=== PATIENT | female | born 1975 | race Hispanic/Latino ===

== ENCOUNTER 2017-06-02 19:28 | Emergency (ER) | payer SELFPAY ==
[2017-06-02 21:40] LABS: Absolute Monocytes 0.8 K/uL (0.1-1.3); Absolute Neutrophil 8.2 K/uL (1.8-8.0); Basophils % 1.1 % (0-1.3); Eosinophils % 1.8 % (0-4.4); Hematocrit 34.5 % (36.0-45.0); Lymphocytes % 29.8 % (15.3-44.8); MCH 26.9 pg (27.0-35.0); MCV 82.7 fL (80-100); MPV 8.4 fL (7.6-11.3); RBC Red Blood Cell Count 4.17 M/uL (3.86-4.86)
[2017-06-02 21:53] LABS: Potassium 3.6 mEq/L (3.6-5.0)
--- NOTE | 2017-06-03 00:23 | EDPHYS ---
Physician Documentation [facility] Name: Shasta Goncalves Age: 42 yrs Sex: Female : 1975 Arrival Date: 06/02/2017 Time: 19:33 Bed 15 Private MD: ED Physician Coby Urena HPI: 06/02 21:24 This 42 yrs old Female presents to ER via Ambulatory with complaints of Leg ma2 Swelling. 21:24 The patient presents with pain, swelling, tenderness. The complaints affect the lateral ma2 aspect of left calf, left lateral ankle and lateral aspect of left foot. Onset: The symptoms/episode began/occurred gradually, 4 week(s) ago. Associated signs and symptoms: Pertinent positives: swelling, warmth, Pertinent negatives calf tenderness, fever, numbness, rash, tingling, vomiting. Severity of symptoms: At their worst the symptoms were moderate. The patient has not experienced similar symptoms in the past. Historical: - Allergies: 19:58 No Known Allergies; la1 - PMHx: 19:58 Diabetes - IDDM; Hypertension; la1 - Immunization history:: Adult Immunizations up to date. - Social history:: Smoking status: Patient/guardian denies using tobacco. - Family history:: not pertinent. ROS: 21:24 Constitutional: Negative for fever, chills, and weight loss, Eyes: Negative for injury, ma2 pain, redness, and discharge, ENT: Negative for injury, pain, and discharge, Neck: Negative for injury, pain, and swelling, Cardiovascular: Negative for chest pain, palpitations, and edema, Respiratory: Negative for shortness of breath, cough, wheezing, and pleuritic chest pain, Abdomen/GI: Negative for abdominal pain, nausea, diarrhea, and constipation, Back: Negative for injury and pain, Skin: Negative for injury, rash, and discoloration, Neuro: Negative for headache, weakness, numbness, tingling, and seizure, Psych: Negative for depression, anxiety, suicide ideation, homicidal ideation, and hallucinations, Allergy/Immunology: Negative for hives, rash, and allergies, Endocrine: Negative for neck swelling, polydipsia, polyuria, polyphagia, and marked weight changes. 21:24 MS/extremity: Positive for erythema, swelling, tenderness, warmth, Negative for acute changes, injury or acute deformity, puncture. Exam: 21:24 Constitutional: This is a well developed, well nourished patient who is awake, alert, ma2 and in no acute distress. Head/Face: Normocephalic, atraumatic. Eyes: Pupils equal round and reactive to light, extra-ocular motions intact. Lids and lashes normal. Conjunctiva and sclera are non-icteric and not injected. Cornea within normal limits. Periorbital areas with no swelling, redness, or edema. Skin: Warm, dry with normal turgor. Normal color with no rashes, no lesions, and no evidence of cellulitis. Neuro: Awake and alert, GCS 15, oriented to person, place, time, and situation. Cranial nerves II-XII grossly intact. Motor strength 5/5 in all extremities. Sensory grossly intact. Cerebellar exam normal. Normal gait. Psych: Awake, alert, with orientation to person, place and time. Behavior, mood, and affect are within normal limits. 21:24 Musculoskeletal/extremity: Extremities: noted in the left leg: erythema, pain, swelling, tenderness, tenderness, 5x5 cm area of erythema with tebnderness on left lateral foot ankle no bony tenderness, ROM: no acute changes, Circulation is intact in all extremities. Sensation intact. Compartment Syndrome exam of affected extremity: is normal. Vital Signs: 19:58 BP 161 / 69; Pulse 93; Resp 19; Temp 97.1; Pulse Ox 100% on R/A; Weight 104.33 kg; la1 Height 5 ft. 6 in. (167.64 cm); 21:40 BP 178 / 87; Pulse 88; Resp 18; Pulse Ox 99% on R/A; tl2 23:22 BP 141 / 83; Pulse 82; Resp 18; Pulse Ox 100% on R/A; tl2 06/03 00:47 BP 130 / 85; Pulse 79; Resp 18; Pulse Ox 100% on R/A; tl2 06/02 19:58 Body Mass Index 37.12 (104.33 kg, 167.64 cm) la1 MDM: 06/02 21:16 Patient medically screened. ma2 21:24 Differential diagnosis: DVT vs cellultitis. ma2 06/03 00:21 Data reviewed: vital signs, nurses notes, radiologic studies. Counseling: I had a ma2 detailed discussion with the patient and/or guardian regarding: the historical points, exam findings, and any diagnostic results supporting the discharge/admit diagnosis, the presence of at least one elevated blood pressure reading (>120/80) during this emergency department visit, the need for outpatient follow up. Medical screen evaluation completed. [facility] emergency medical condition absent. 06/02 21:24 Order name: Basic Metabolic Panel; Complete Time: 22:30 [facility] 06/02 21:24 Order name: CBC with Diff; Complete Time: 22:30 [facility] 06/02 21:24 Order name: US Extremity Venous Uni Ltd [facility] 06/03 00:20 Interpretation: Abnormal. ma2 Administered Medications: No medications were administered Disposition: 06/03/17 00:22 Discharged to Home. Impression: Cellulitis of left lower limb. - Condition is Stable. - Prescriptions for Clindamycin HCl 300 mg Oral Capsule - take 1 capsule by ORAL route every 6 hours for 10 days; 40 capsule. Tylenol- Codeine #3 300-30 mg Oral Tablet - take 2 tablet by ORAL route every 6 hours As needed; 6 tablet. - Medication Reconciliation Form, Thank You Letter, Antibiotic Education, Prescription Opioid Use form. - Follow up: Private Physician; When: Tomorrow; Reason: Continuance of care. - Problem is new. - Symptoms are unchanged. Signatures: Dispatcher [employer] EDMS José Song RN RN la1 Leatha Elliott RN RN tl2 Coby Urena MD MD ma2
--- NOTE | 2017-06-03 00:23 | ER ---
Nurse's Notes [facility] Name: Shasta Goncalves Age: 42 yrs Sex: Female : 1975 Arrival Date: 06/02/2017 Time: 19:33 Bed 15 Private MD: Diagnosis: Cellulitis of left lower limb Presentation: 06/02 19:57 Presenting complaint: Patient states: LLE swelling for the last couple weeks on and la1 off, worse after work. Transition of care: patient was not received from another setting of care. Onset of symptoms was June 02, 2017. Initial Sepsis Screen: Does the patient meet any 2 criteria? No. Patient's initial sepsis screen is negative. Does the patient have a suspected source of infection? No. Patient's initial sepsis screen is negative. Care prior to arrival: None. 19:57 Method Of Arrival: Ambulatory la1 19:57 Acuity: HAYDE 3 la1 Historical: - Allergies: 19:58 No Known Allergies; la1 - PMHx: 19:58 Diabetes - IDDM; Hypertension; la1 - Immunization history:: Adult Immunizations up to date. - Social history:: Smoking status: Patient/guardian denies using tobacco. - Family history:: not pertinent. Screenin:40 Abuse screen: Denies threats or abuse. Nutritional screening: No deficits noted. tl2 Tuberculosis screening: No symptoms or risk factors identified. Fall Risk None identified. Assessment: 21:40 General: Appears in no apparent distress. uncomfortable, Behavior is calm, cooperative, tl2 appropriate for age. Pain: Complains of pain in left leg and left lateral ankle Pain does not radiate. Neuro: Level of Consciousness is awake, alert, obeys commands, Oriented to person, place, time, situation. Cardiovascular: Denies chest pain, Patient's skin is warm and dry. Cardiovascular: Edema is 2+ to left foot and left toes pitting to left foot and left toes. Respiratory: Airway is patent Respiratory effort is even, unlabored, Respiratory pattern is regular, symmetrical. GI: No signs and/or symptoms were reported involving the gastrointestinal system. : No signs and/or symptoms were reported regarding the genitourinary system. Derm: Skin is pink, warm \T\ dry. left leg feels slightly warmer than right leg. Musculoskeletal: Circulation, motion, and sensation intact. Swelling present in left lateral ankle, lateral aspect of left foot, anterior aspect of left ankle and dorsum of left foot Reports. 23:00 Reassessment: Patient appears in no apparent distress at this time. Patient and/or tl2 family updated on plan of care and expected duration. Pain level reassessed. Patient is alert, oriented x 3, equal unlabored respirations, skin warm/dry/pink. 06/03 00:10 Reassessment: Patient appears in no apparent distress at this time. Patient and/or tl2 family updated on plan of care and expected duration. Pain level reassessed. Patient is alert, oriented x 3, equal unlabored respirations, skin warm/dry/pink. Pt verbalized understanding of discharge instructions, need for follow up and prescription usage. 00:47 Reassessment: Patient appears in no apparent distress at this time. Patient and/or tl2 family updated on plan of care and expected duration. Pain level reassessed. Patient is alert, oriented x 3, equal unlabored respirations, skin warm/dry/pink. Vital Signs: 06/02 19:58 BP 161 / 69; Pulse 93; Resp 19; Temp 97.1; Pulse Ox 100% on R/A; Weight 104.33 kg; la1 Height 5 ft. 6 in. (167.64 cm); 21:40 BP 178 / 87; Pulse 88; Resp 18; Pulse Ox 99% on R/A; tl2 23:22 BP 141 / 83; Pulse 82; Resp 18; Pulse Ox 100% on R/A; tl2 06/03 00:47 BP 130 / 85; Pulse 79; Resp 18; Pulse Ox 100% on R/A; tl2 06/02 19:58 Body Mass Index 37.12 (104.33 kg, 167.64 cm) la1 ED Course: 06/02 19:33 Patient arrived in ED. al2 19:58 Triage completed. la1 19:58 Arm band placed on left wrist. la1 21:15 Coby Urena MD is Attending Physician. ma2 21:39 Leatha Elliott RN is Primary Nurse. tl2 21:40 Patient has correct armband on for positive identification. Placed in gown. Bed in low tl2 position. Call light in reach. Side rails up X2. 21:40 Inserted saline lock: 20 gauge in left antecubital area, using aseptic technique. Blood tl2 collected. 22:05 Ultrasound completed. Patient tolerated well. ap2 22:21 US Extremity Venous Uni Ltd In Process Unspecified. EDMS 06/03 00:47 No provider procedures requiring assistance completed. IV discontinued, intact, tl2 bleeding controlled, No redness/swelling at site. Pressure dressing applied. Administered Medications: No medications were administered Outcome: 00:22 Discharge ordered by MD. ma2 00:47 Discharged to home ambulatory. tl2 00:47 Condition: stable 00:47 Discharge instructions given to patient, Instructed on discharge instructions, follow up and referral plans. medication usage, Demonstrated understanding of instructions, follow-up care, medications, Prescriptions given X 2. 00:48 Patient left the ED. tl2 Signatures: Dispatcher [employer] EDNH José Song RN RN Leatha Griffin RN RN tl2 Marilia Mg Mohammad, MD MD ma2 Kiah Contreras Corrections: (The following items were deleted from the chart) 00:47 00:10 Reassessment: Patient appears in no apparent distress at this time. Patient tl2 and/or family updated on plan of care and expected duration. Pain level reassessed. Patient is alert, oriented x 3, equal unlabored respirations, skin warm/dry/pink. tl2
--- NOTE | 2017-06-03 11:51 | RAD REPORT ---
EXAM DESCRIPTION: VAS - Extremity Venous Uni Ltd - 06/02/2017 10:21 pm CLINICAL HISTORY: Leg swelling and edema. COMPARISON: None. FINDINGS: Left lower extremity venous system was interrogated with Doppler technique. Normal flow, c ompressibility and augmentation was noted. There is no DVT present. IMPRESSION: No evidence of left lower extremity deep venous thrombosis.
== END 2017-06-03 00:48 | disposition home or self-care (01) ==
LOC: ER 19:28
DX: L03.116 Cellulitis of left lower limb (principal); I10 Essential (primary) hypertension; E11.9 Type 2 diabetes mellitus without complications
CPT/HCPCS: 36415; 80048; 85025; 93971; 99284

== ENCOUNTER 2019-07-09 11:41 | Emergency (ER) | payer OTHER, SELFPAY ==
[2019-07-09] MEDS ORDERED: NA CHLORIDE 0.9% 1,000 ML ONE (13:17)
[2019-07-09] MEDS ORDERED: METOCLOPRAMIDE 10 MG/2mL INJ ONE (13:34)
[2019-07-09] MEDS ORDERED: DIPHENHYDRAMINE 50 MG/ML VIAL ONE (13:34)
--- OUTSIDE RECORDS SUMMARY | 2019-07-09 13:53 | XMS REPORT ---
:1975 Author Organization [facility] t Address [address] [place] [address] Care Team Providers Name Role Phone Sallie Garcias Attending Clinician [phone] Problems Condition Condition Condition Status Onset Resolution Last Treating Co mments Source Name Details Category Date Date Treatment Clinician Date Charcot Charcot Problem Active [facility] foot due foot due [facility] - to to [facility] diabetes diabetes l mellitus mellitus Out[facility] ent Clinics Diabetes Diabetes Problem Active [facility] mellitus mellitus [facility] - type 2, type 2, [facility] controlled controlled l [facility] ent Clinics Hypertensi Hypertensi Problem Active [facility] Circulatio Circulatio Problem Active [facility] problem n problem [facility] - [facility] Iron Iron Problem Active [facility] deficiency deficiency [facility] - anemia anemia [facility] secondary secondary l to to Outpati inadequate inadequate en t dietary dietary Clinics iron iron intake intake Uncontroll Uncontroll Problem Active [facility] ed type 2 ed type 2 [facility] - diabetes diabetes [facility] a mellitus mellitus l with with Outpati hyperglyce hyperglyce en t [facility] Clinics Allergies, Adverse Reactions, Alerts This patient has no known allergies or adverse reactions. Medications Ordered Filled Start Stop Current Ordering Indication Dosage Frequency Signature Comments Components Source Medication Medication Date Date Medication? Clinician (SIG) Name Name Zestoretic Zestoretic 2017-02 Yes Kelli Schroeder [address] [facility] 0-25 [facility] - 00:00: [facility] 00 [facility] ent Clinics Procedures This patient has no known procedures. Encounters Start End Encounter Admission Attending Care Care Encounter Source Date/Time Date/Time Type Type Clinicians Facility Department ID 2019-03-20 2019-03-20 Telephone Ese [facility] [id number] 00:00:00 00:00:00 Sallie Garcia [facility] [id number] [facility] [id number] MATERNAL [id number] & CHILD [address] [place] [address] 2018-03-08 2018-03-08 Outpatient John Lopezt [id number] [facility] 09:47:00 09:47:00 [facility] 2017-11-29 2017-11-29 Outpatient oJhn Lopezt [id number] [facility] [address] 16:00:00 16:00:00 [facility] 2017-08-30 2017-08-30 Outpatient Brazmei [place] [id number] [address] 14:45:00 14:45:00 [facility] Results This patient has no known results.
[2019-07-09 13:59] LABS: Absolute Lymphocytes (CBC) 2.2 K/uL (0.7-4.9); Basophils % 0.8 % (0-1.3); Hematocrit 41.7 % (36.0-45.0); MPV 9.1 fL (7.6-11.3); RBC Red Blood Cell Count 4.74 M/uL (3.86-4.86)
[2019-07-09 14:06] LABS: Urine Blood 2+ (NEG); Urine Glucose 2+ (NEG); Urine Protein 3+ (NEG); Urine Specific Gravity 1.025 (1.005-1.030)
[2019-07-09] MEDS ORDERED: INSULIN -REGULAR HUMAN 50 UNIT/0.5 ML ML ONE (14:12)
[2019-07-09 14:35] LABS: Albumin 3.2 g/dL (3.4-5.0); Bilirubin Total 0.3 mg/dL (0.2-1.0); Potassium 3.4 mmol/L (3.5-5.1); Protein, Total 8.6 g/dL (6.4-8.2)
[2019-07-09 15:22] LABS: Urine Bacteria 20-50 /HPF (<20); Urine Culture Reflex Order NOT NEEDED; Urine Mucus 2+ /HPF (NONE SEEN)
--- NOTE | 2019-07-09 15:22 | RAD REPORT ---
EXAM DESCRIPTION: CT - Abdomen Pelvis W Contrast - 07/09/2019 2:59 pm CLINICAL HISTORY: back pain, fever, vomiting COMPARISON: Abdomen Pelvis W Contrast dated 07/15/2016 TECHNIQUE: Biphasic, helical CT imaging of the abdomen and pelvis was performed following 100 ml non -ionic IV contrast. No oral contrast. All CT scans are performed using dose optimization technique as appropriate and may include automated exposure control or mA/KV adjustment according to patient size. FINDINGS: No suspicious findings in the lung bases. The liver, spleen, and pancreas show no suspicious findings. Calcifications along the splenic artery could be small aneurysms. This is a stable pattern. Gallbladder and biliary tree are also without mabel picious finding. No hydronephrosis present. There is a 2 centimeter area of diminished enhancement in the lateral mid left kidney. This is an appearance typical for pyelonephritis. No obstructing or nonobstructing calcu li. No right-sided pyelonephritis. No solid mass of either kidney. Air is present in the lumen of the bladder. This is presumed to be from a catheterization rather than gas-forming organism. This needs correlation. No bladder wall thickening, mass or calcification. No adrenal abnormalities. Uterus and ovaries show no suspicious findings. No dilated bowel loops or bowel wall thickening. No appendicitis findings. No active GI process seen. No free air, free fluid or inflammatory stranding. No hernia, mass or bulky lymphadenopathy. No suspicious bony findings. Advanced for age degenerative change in the L5-S1 disc level. IMPRESSION: Mild or early pyelonephritis of the left kidney. No abscess or other complicating factor . Additional nonacute findings detailed in the body of the report.
[2019-07-09] MEDS ORDERED: NA CHLORIDE 0.9% 100 ML IV ONE (16:14)
[2019-07-09] MEDS ORDERED: CEFTRIAXONE 1000 MG/VIAL ONE (16:14)
[2019-07-09] MEDS ORDERED: ACETAMINOPHEN 500 MG TAB ONE (17:30)
[2019-07-09 17:38] VITALS: O2SAT 99
[2019-07-09 17:42] VITALS: BP 168/55; TEMP 97.6
--- NOTE | 2019-07-14 14:31 | EDPHYS ---
Physician Documentation [facility] Name: Shasta Goncalves Age: 44 yrs Sex: Female : 1975 Arrival Date: 07/09/2019 Time: 11:44 Bed 16 Private MD: None, None ED Physician oNel Vieira HPI: 07/08 12:08 This 44 yrs old Female presents to ER via Ambulatory with complaints of jmm Vomiting, Headache. 12:08 The patient presents to the emergency department with nausea. Onset: The jmm symptoms/episode began/occurred gradually, 1 day(s) ago. Possible causes: unknown. The symptoms are aggravated by nothing. The symptoms are alleviated by nothing. Associated signs and symptoms: Pertinent positives: fever, back pain. This is a 44 year old female with a history of htn, dm that presents to the ED with complaints of back pain, fever, vomiting, headache, vomiting. Patient had a similar headache with a previous UTI. Denies abdominal pain. Historical: - Allergies: 14:42 No Known Allergies; vc - PMHx: 14:42 Diabetes - IDDM; Hypertension; vc - Immunization history:: Adult Immunizations up to date. - Social history:: Smoking status: Patient denies any tobacco usage or history of. ROS: 12:08 Cardiovascular: Negative for chest pain, palpitations, and edema, Respiratory: Negative jmm for shortness of breath, cough, wheezing, and pleuritic chest pain. 12:08 Constitutional: Positive for fever. 12:08 Abdomen/GI: Positive for nausea and vomiting. 12:08 Back: Positive for pain at rest. 12:08 Neuro: Positive for headache. 12:08 All other systems are negative. Exam: 12:08 Head/Face: atraumatic. Eyes: EOMI, no conjunctival erythema appreciated ENT: Moist jmm Mucus Membranes Neck: Trachea midline, Supple Chest/axilla: Normal chest wall appearance and motion. Cardiovascular: Regular rate and rhythm. No edema appreciated Respiratory: Normal respirations, no respiratory distress appreciated Abdomen/GI: Non distended, soft Back: Normal ROM Skin: General appearance color normal MS/ Extremity: Moves all extremities, no obvious deformities appreciated, no edema noted to the lower extremities Neuro: Awake and alert, normal gait Psych: Behavior is normal, Mood is normal, Patient is cooperative and pleasant 12:08 Constitutional: The patient appears alert, awake, uncomfortable. Vital Signs: 12:00 BP 171 / 86; Pulse 94; Resp 18; Pulse Ox 99% on R/A; Weight 104.33 kg; Height 5 ft. 5 ll1 in. (165.10 cm); 14:00 BP 155 / 78; Pulse 93; Resp 19; Pulse Ox 99% on R/A; vc 15:00 BP 171 / 93; Pulse 98; Resp 20; Pulse Ox 99% on R/A; vc 16:44 BP 168 / 55; Pulse 94; Resp 16; Temp 97.6(TE); Pulse Ox 99% on R/A; mh5 12:00 Body Mass Index 38.27 (104.33 kg, 165.10 cm) ll1 MDM: 12:59 Patient medically screened. [facility] 16:56 Data reviewed: vital signs, nurses notes. Counseling: I had a detailed discussion with larry the patient and/or guardian regarding: the historical points, exam findings, and any diagnostic results supporting the discharge/admit diagnosis, lab results, radiology results, the need for outpatient follow up, to return to the emergency department if symptoms worsen or persist or if there are any questions or concerns that arise at home. ED course: Patient is alert and non toxic in appearance in the ED. Patient tolerates PO in the ED. patient advised to follow up with pcp and otherwise given strict return precautions. Patient understood and agrees with the plan of care. . 07/08 13:08 Order name: CBC with Diff [facility] 07/08 13:08 Order name: CMP [facility] 07/08 13:53 Order name: Urine Dipstick--Ancillary (enter results) [facility] 07/08 13:53 Order name: Urine --Ancillary (enter results) [facility] 07/08 14:08 Order name: Urine --Ancillary; Complete Time: 14:18 [facility] 07/08 14:08 Order name: Urine Dipstick-Ancillary; Complete Time: 14:18 [facility] 07/08 14:11 Order name: CBC with Automated Diff; Complete Time: 14:18 [facility] 07/08 14:29 Order name: CT Abd/Pelvis - IV Contrast Only [facility] 07/08 14:30 Order name: Urine Microscopic Only [facility] 07/08 14:30 Order name: Urine Culture [facility] 07/08 14:36 Order name: Comprehensive Metabolic Panel; Complete Time: 14:57 [facility] 07/08 15:23 Order name: Urine Microscopic Only; Complete Time: 15:25 [facility] 07/08 13:08 Order name: Saline Lock; Complete Time: 13:51 [facility] 07/08 13:08 Order name: Urine Dipstick-Ancillary (obtain specimen); Complete Time: 13:51 [facility] Administered Medications: 13:52 Drug: NS 0.9% 1000 ml Route: IV; Rate: 1 bolus; Site: left antecubital; ll1 13:52 Drug: Reglan 10 mg Route: IVP; Site: left antecubital; ll1 13:53 Drug: diphenhydrAMINE 12.5 mg Route: IVP; Site: left antecubital; ll1 16:29 Drug: Rocephin - (cefTRIAXone) 2 grams Route: IVPB; Infused Over: 30 mins; Site: left vc antecubital; Disposition: 07/09 09:51 Co-signature as Attending Physician, Noel Vieira MD I agree with the assessment and kdr plan of care. Disposition: 07/09/19 16:57 Discharged to Home. Impression: Pyelonephritis. - Condition is Stable. - Discharge Instructions: Pyelonephritis, Adult. - Prescriptions for Zofran ODT 4 mg Oral tablet,disintegrating - place 1 tablet by TRANSLINGUAL route every 4-6 hours; 20 tablet. Cipro 500 mg Oral Tablet - take 1 tablet by ORAL route every 12 hours for 7 days; 14 tablet. Tramadol 50 mg Oral Tablet - take 1 tablet by ORAL route every 8 hours as needed; 12 tablet. - Medication Reconciliation Form, Thank You Letter, Antibiotic Education, Prescription Opioid Use, Work release form form. - Follow up: Private Physician; When: 2 - 3 days; Reason: Recheck today's complaints, Continuance of care, Re-evaluation by your physician. Signatures: Dispatcher [employer] [facility] Noel Vieira MD MD kdr Mickail, Joel, PA PA jmm Baxter, Heather RN Emilie Martinez RN RN vc Lewis, Lynsay, RN RN ll1 Corrections: (The following items were deleted from the chart) 07/08 14:33 14:32 This 44 yrs old Female presents to ER via Ambulatory with complaints of jmm Vomiting, Headache. gil 17:33 16:57 07/09/2019 16:57 Discharged to Home. Impression: Pyelonephritis. Condition is hb Stable. Forms are Medication Reconciliation Form, Thank You Letter, Antibiotic Education, Prescription Opioid Use. Follow up: Private Physician; When: 2 - 3 days; Reason: Recheck today's complaints, Continuance of care, Re-evaluation by your physician. larry
--- NOTE | 2019-07-14 14:31 | ER ---
Nurse's Notes [facility] Name: Shasta Goncalves Age: 44 yrs Sex: Female : 1975 Arrival Date: 07/09/2019 Time: 11:44 Bed 16 Private MD: None, None Diagnosis: Pyelonephritis Presentation: 07/08 12:00 Chief complaint: Patient states: started with headache on Sunday, started vomitting ll1 yesterday, can't keep anything down today. feels weak. Coronavirus screen: Proceed with normal triage. Patient denies a cough. Patient denies shortness of breath or difficulty breathing. Patient denies measured and/or subjective temperature greater than 100.4F prior to today's visit. Patient reports travel on a cruise ship or to a country the [facility] currently lists as an affected area. Patient denies contact with known and/or suspected case of COVID-19. Ebola Screen: Patient negative for fever greater than or equal to 101.5 degrees Fahrenheit, and additional compatible Ebola Virus Disease symptoms Patient denies exposure to infectious person. Patient denies travel to an Ebola-affected area in the 21 days before illness onset. No symptoms or risks identified at this time. Initial Sepsis Screen: Does the patient meet any 2 criteria? HR > 90 bpm. No. Patient's initial sepsis screen is negative. Does the patient have a suspected source of infection? No. Patient's initial sepsis screen is negative. Risk Assessment: Do you want to hurt yourself or someone else? Patient reports no desire to harm self or others. Onset of symptoms was July 07, 2019. 12:00 Acuity: HAYDE 3 ll1 12:00 Method Of Arrival: Ambulatory ll1 Triage Assessment: 14:05 General: Appears in no apparent distress. uncomfortable, Behavior is calm, cooperative, vc appropriate for age. GI: Reports nausea, vomiting. Historical: - Allergies: 14:42 No Known Allergies; vc - PMHx: 14:42 Diabetes - IDDM; Hypertension; vc - Immunization history:: Adult Immunizations up to date. - Social history:: Smoking status: Patient denies any tobacco usage or history of. Screenin:15 Abuse screen: Denies threats or abuse. Nutritional screening: No deficits noted. vc Tuberculosis screening: No symptoms or risk factors identified. Fall Risk None identified. Assessment: 13:50 General: Appears uncomfortable, Behavior is calm, cooperative, appropriate for age. ll1 Pain: Complains of pain in forehead Quality of pain is described as aching. Neuro: Level of Consciousness is awake, alert, obeys commands, Oriented to person, place, time, situation, Appropriate for age Medical Scheduler are equal bilaterally Moves all extremities. Full function Gait is steady, Speech is normal, Facial symmetry appears normal, Pupils are PERRLA, Reports headache frontal area. Cardiovascular: No deficits noted. Respiratory: No deficits noted. GI: Abdomen is flat, Bowel sounds present X 4 quads. Abd is soft and non tender X 4 quads. Reports nausea, vomiting. 14:35 Reassessment: Patient appears in no apparent distress at this time. Patient and/or vc family updated on plan of care and expected duration. Pain level reassessed. Patient states symptoms have improved. Pain: Complains of pain in forehead, right nondenominational and left nondenominational Pain does not radiate. Pain currently is 3 out of 10 on a pain scale. at worst was 5 out of 10 on a pain scale. Quality of pain is described as dull, pressure. 14:35 General: Appears in no apparent distress. uncomfortable, Behavior is calm, cooperative, vc appropriate for age. Neuro: Level of Consciousness is awake, obeys commands, lethargic, Oriented to person, place, time, situation, Appropriate for age Reports headache frontal area. Cardiovascular: Capillary refill < 3 seconds Patient's skin is warm and dry. Respiratory: Airway is patent Respiratory effort is even, unlabored, Respiratory pattern is regular, symmetrical. : No signs and/or symptoms were reported regarding the genitourinary system. EENT: No signs and/or symptoms were reported regarding the EENT system. Derm: Skin is intact, is healthy with good turgor, Skin temperature is warm. Musculoskeletal: Circulation, motion, and sensation intact. Range of motion: intact in all extremities. 14:40 GI: Abdomen is non-distended. vc Vital Signs: 12:00 BP 171 / 86; Pulse 94; Resp 18; Pulse Ox 99% on R/A; Weight 104.33 kg; Height 5 ft. 5 ll1 in. (165.10 cm); 14:00 BP 155 / 78; Pulse 93; Resp 19; Pulse Ox 99% on R/A; vc 15:00 BP 171 / 93; Pulse 98; Resp 20; Pulse Ox 99% on R/A; vc 16:44 BP 168 / 55; Pulse 94; Resp 16; Temp 97.6(TE); Pulse Ox 99% on R/A; mh5 12:00 Body Mass Index 38.27 (104.33 kg, 165.10 cm) ll1 ED Course: 11:44 Patient arrived in ED. mr 11:44 None, None is Private Physician. mr 12:03 Triage completed. 1 12:08 Parmjit Chow PA is PHCP. [facility] 12:08 Noel Vieira MD is Attending Physician. [facility] 12:22 Kit Mak, RN is Primary Nurse. 1 13:50 Initial lab(s) drawn, by me, sent to lab. Inserted saline lock: 20 gauge in left 5 antecubital area, using aseptic technique. Blood collected. 13:50 Patient has correct armband on for positive identification. Bed in low position. Call [facility] light in reach. Side rails up X 1. Warm blanket given. Pulse ox on. NIBP on. 13:51 CMP Sent. 5 13:51 CBC with Diff Sent. 5 13:55 Report received from Kit Mak RN. vc 17:30 No provider procedures requiring assistance completed. IV discontinued, intact, vc bleeding controlled, No redness/swelling at site. Pressure dressing applied. Administered Medications: 13:52 Drug: NS 0.9% 1000 ml Route: IV; Rate: 1 bolus; Site: left antecubital; 1 13:52 Drug: Reglan 10 mg Route: IVP; Site: left antecubital; 1 13:53 Drug: diphenhydrAMINE 12.5 mg Route: IVP; Site: left antecubital; 1 16:29 Drug: Rocephin - (cefTRIAXone) 2 grams Route: IVPB; Infused Over: 30 mins; Site: left vc antecubital; Outcome: 16:57 Discharge ordered by . [facility] 17:30 Discharged to home ambulatory. vc 17:30 Condition: good 17:30 Discharge instructions given to patient, Instructed on discharge instructions, follow vc up and referral plans. medication usage, Demonstrated understanding of instructions, follow-up care, medications, Prescriptions given X 3. 17:33 Patient left the ED. Addendum: 07/13/2019 07:35 Addendum: Culture Results: Positive urine culture. No further action required. Bacteria e b sensitive to prescribed antibiotic. Signatures: Parmjit Chow PA PA jmm Rivera, Mary mr Baxter, Heather, RN RN Tena Stroud [facility] Crystal Yap Vanessa, RN RN Kit Camp RN RN ll1
== END 2019-07-09 17:33 | disposition home or self-care (01) ==
LOC: ER 11:41
DX: N12 Tubulo-interstitial nephritis, not specified as acute or chronic (principal); I10 Essential (primary) hypertension
CPT/HCPCS: 36415; 74177; 80053; 81003; 81015; 81025; 85025; 87077; 87086; 87088; 87186; 96374; 96375; 99284; J1200; J2765; J7030; Q9967

== ENCOUNTER 2020-06-10 09:21 | Day surgery (SDC) | payer SELFPAY ==
[~2020-06-10 09:21] MED LIST: FENTANYL CITR 100 MCG/2 ML ONE; LIDOCAINE 1% MPF 5 ML VIAL ONE; MIDAZOLAM HCL 2 MG/2 ML INJ ONE; propofoL 200 MG/20 ML VIAL IV ONE
[2020-06-10 09:23] LABS: Absolute Lymphocytes (CBC) 3.2 K/uL (0.7-4.9); Basophils % 0.4 % (0-1.3); Hematocrit 34.9 % (36.0-45.0); Lymphocytes % 22.1 % (15.3-44.8); RBC Red Blood Cell Count 4.01 M/uL (3.86-4.86)
--- NOTE | 2020-06-10 09:35 | RAD REPORT ---
EXAM DESCRIPTION: RAD - Chest Pa And Lat (2 Views) - 06/10/2020 9:22 am CLINICAL HISTORY: preop Chest pain. COMPARISON: CHEST SINGLE VIEW dated 12/11/2009 FINDINGS: The lungs are clear. The heart is normal in size. No displaced fractures. IMPRESSION: No acute or concerning finding suspected.
[2020-06-10 09:36] LABS: Potassium 3.5 mmol/L (3.5-5.1)
[2020-06-10] MEDS ORDERED: CEFAZOLIN/SWI 1gm 1 GM/10 ML SYR ONE (09:43)
[2020-06-10] MEDS ORDERED: NA CHLORIDE 0.9% 1,000 ML ONE (09:43)
[2020-06-10 09:48] VITALS: O2SAT 100
[2020-06-10] MEDS ORDERED: ONDANSETRON 4 MG/2 ML VIAL ONE ×2 (10:08→11:28)
[2020-06-10] MEDS ORDERED: KETOROLAC 30 MG/ML INJ ONE (10:08)
[2020-06-10] MEDS ORDERED: dexAMETHasone 10 MG/ML VIAL ONE (10:08)
--- NOTE | 2020-06-10 10:40 | P.BOP ---
Preoperative diagnosis: tender left shoulder infected subQ mass Postoperative diagnosis: same Primary procedure: Excisional biopsy tender left shoulder infected subQ mass 5.5 x 4 cm Estimated blood loss: <10cc Specimen: mass Findings: as above Anesthesia: General Complications: None Transferred to: Recovery Room Condition: Good
[2020-06-10] MEDS: HYDROMORPHONE HCL 1 MG/ML INJ ONE ×2 (11:00→11:05)
--- NOTE | 2020-06-10 11:13 | DS ---
Diagnosis: Infected left subcutaneous mass. Procedure: Excisional biopsy of left subcutaneous mass. Disposition: Home. Activity: As tolerated. No heavy lifting. Plan: Follow up in my office in 1 week. Call for appointment at [phone]. Keep area dry for 48 boris rs, then may shower. Then, put some triple antibiotics over the region and gauze over the top. The patient will be seen 1 week in my office. JOESPH/LINCOLN Voice ID: [id number] Report ID: [id number]
--- NOTE | 2020-06-10 11:43 | OP ---
Date of Procedure: 06/10/2020 Surgeon: René Sorto MD Preoperative Diagnosis: Tender left shoulder infected subcutaneous mass, 5.5 x 4 cm. Postoperative Diagnosis: Tender left shoulder infected subcutaneous mass, 5.5 x 4 cm. Procedure: Excisional biopsy of tender left shoulder infected subcutaneous mass. Anesthesia: General. Finding: Mass, subcutaneous tissue touch the muscle does not penetrate the muscle. Complications: None. Indication: This is the case of a 45-year-old patient, who comes to us with a tender erythematous ma ss, increasing in size and discomfort. The patient wanted that excised. Benefits, alternatives, and risks of excision were fully explained, which include, but not limited to infection, bleeding, damag e to adjacent structures, anesthesia complication, recurrence, MS, and even . She also understa nds this may not relieve any symptoms. She might need more than one surgical intervention. She expr essed her desire to see we can close this by primary intention, although she understands that we migh t leave it open to close by secondary intention or if we see that she is not improving clinically, re move some of the stitches and let it close by secondary intention with wet-to-dry normal saline packi ng. She understands all that options. She signed a consent. The area of concern was marked by me a nd the patient in the holding room. Procedure In Detail: The patient was brought to the operating room, placed in supine position. Anes thesia was done without complication. The patient was placed in lateral decubitus position with prop er protection. Shoulder area was prepped and draped in sterile fashion. Local anesthesia was applie d and followed by a wedge incision on the skin and some of the skin looked devitalized. The incision was carried down to subcutaneous tissues. Slowly, we were removing this mass completely in 1 unit a ll the way down to fascia of the muscle, but does not penetrate the muscle. The mass was completely excised. The area was profusely irrigated. Since I did not find pus in that area, the area looked h ealthier. We proceeded to approximate this with 0 chromic, 3-0 chromic, and 3-0 nylon. This was aft er profuse irrigation and hemostasis. The patient tolerated the procedure well. Area covered with s terile dressings. Sponge count and instrument count correct. The patient was sent to recovery in st able condition. /LINCOLN Voice ID: [id number] Report ID: [id number]
[2020-06-10 13:20] VITALS: BP 167/86; TEMP 96.4
== END 2020-06-10 11:53 | disposition home or self-care (01) ==
LOC: OR 09:21
PROVIDERS: ATTEND Surgery
PROC: 0JBF0ZZ Excision of Left Upper Arm Subcutaneous Tissue and Fascia, Open Approach (ICD-10-PCS; principal; 2020-06-10 09:00)
DX: L72.0 Epidermal cyst (principal); Z20.822 Contact with and (suspected) exposure to COVID-19
CPT/HCPCS: 93005; 85025; 80048; 36415; 81025; 82947; 88304; 71046; 11406; U0003; J2704; J2250; J3010; J1100; J1170; J0690; J7030; J2405 ×2; 88305

== ENCOUNTER 2020-12-30 17:35 | Emergency (ER) | payer OTHER, SELFPAY ==
--- OUTSIDE RECORDS SUMMARY | 2020-12-30 17:39 | XMS REPORT | Continuity of Care Document ---
:1975 Author Organization [facility] t Address [address] [place] [address] Care Team Providers Name Role Phone STEPHEN SALGADO Primary Care Physician Unavailable CULLEN GRADY Attending Clinician Unavailable MIGUEL ANGEL BEAR Attending Clinician Unavailable Cullen Grady MD Attending Clinician MICHEL CARBALLO Attending Clinician Unavailable STEPHEN SALGADO Attending Clinician Unavailable RODRIGO EAST Attending Clinician Unavailable Jose Garcias Attending Clinician Payers Payer Name Policy Type Policy Number Effective Date Expiration Date S brianna [facility] [id number] 2020 PLUS 00:00:00 [employer] [employer] [id number] 2020 00:00:00 [employer] [employer] [id number] 2020 CARE 00:00:00 Advance Directives Directive Decision Effective Termination Comments Source Date Date Healthcare Agents on N/A [facility] ersity FileNameRelationshipHealthcare of [place] Agent Medical RelationshipCommunication[facility] [phone] (Mobile) Problems Condition Condition Condition Status Onset Resolution Last Treating Co mments Source Name Details Category Date Date Treatment Clinician Date Class 2 Class 2 Disease Active Univers obesity obesity 1-28 ity of [place] body [place] mass [place] mass index 00 Me dical (BMI) of (BMI) of Branch 38.0 to 38.0 to 38.9 in 38.9 in adult, adult, unspecifie unspecifie d obesity d obesity type, type, unspecifie unspecifie d whether d whether serious serious comorbidit comorbidit y present y present Essential Essential Disease Active Uni vers hypertensi hypertensi 1-28 it y of on on 00:00: [place] [facility] Branch BMI BMI Disease Active 2018-02 Univers 38.0-38.9, 38.0-38.9, 0-08 it y of adult adult 00:00: [place] [facility] Charcot Charcot Problem Active [facility] foot [...] with with Outpati hyperglyce hyperglyce en t javier javier Clinics Allergies, Adverse Reactions, Alerts Allergy Allergy Status Severity Reaction(s) Onset Inactive Treating Comm ents Source Name Type Date Date Clinician NO KNOWN Drug Active Univers ALLERGIE Class ity of [facility] Social History Social Habit Start Date Stop Date Quantity Comments Source History of tobacco Smoker [facility] use [facility] Branch Alcohol intake 2020-11-22 2020-11-22 .14 /d [facility] 00:00:00 00:00:00 [facility] Cigarettes smoked 2020-07-08 2020-07-08 [facility] current (pack per 00:00:00 00:00:00 Medical Branch day) - Reported Tobacco use and 2020-07-08 2020-07-08 Never used [facility] [place] exposure 00:00:00 00:00:00 Medical Branch Sex Ass[birth year] [facility] y of [place] 00:00:00 00:00:00 Medical Branch Smoking Status Start Date Stop Date Source Former smoker 2020-07-08 00:00:00 2020-07-08 00:00:00 [facility] Medical Branch Medications Ordered Filled Start Stop Current Ordering Indication Dosage Frequency Signature Comments Components Source Medication Medication Date Date Medication? Clinician (SIG) Name Name LISINOPRIL- Yes [id number] Take 1 Univers HYDROCHLORO 9-22 tablet by ity of THIAZIDE 00:00: mouth once Manuel as 20-12.5 mg 00 daily Medical per tablet Branch [facility] Yes [id number] USE TO Un han ULTRA2 9-22 TEST BLOOD ity of METER Misc 00:00: SUGAR TWICE Medical DAILY Branch LISINOPRIL- Yes [id number] Take 1 Univers HYDROCHLORO 9-22 tablet by ity of THIAZIDE 00:00: mouth once Manuel as 20-12.5 mg 00 daily Medical per tablet Branch [facility] Yes [id number] USE TO Un han ULTRA2 9-22 TEST BLOOD ity of METER Misc 00:00: [place] TWICE Medical DAILY Branch glyBURIDE 5 Yes [id number] 5mg Take 1 Univers mg tablet 6-10 tablet by ity o f 00:00: mouth [place] ([facility]) Medical times Branch daily with meals. glyBURIDE 5 Yes [id number] 5mg Take 1 Univers mg tablet 6-10 tablet by ity o f 00:00: mouth [place] ([facility]) Medical times Branch daily with meals. metFORMIN Yes 1000mg Take 1 Univ ers 1,000 mg 5-28 tablet by ity of tablet 00:00: mouth [place] ([facility]) Medical times Branch daily with meals. metFORMIN Yes 1000mg Take 1 Univ ers 1,000 mg 5-28 tablet by ity of tablet 00:00: mouth [place] ([facility]) Medical times Branch daily with meals. amLODIPine Yes 10mg Take 10 mg U nivers 10 mg 4-25 by mouth ity of tablet 00:00: daily. Medical Branch amLODIPine 2021-0 Yes 10mg Take 10 mg U nivers 10 mg 4-25 by mouth ity of tablet 00:00: daily. [place] [facility] lovastatin Yes TAKE 1 Unive rs 10 mg 4-10 TABLET BY ity of tablet 00:00: MOUTH ONCE DAILY WITH Medical EVENING Branch MEAL [facility] lovastatin Yes TAKE 1 Unive rs 10 mg 4-10 TABLET BY ity of tablet 00:00: MOUTH ONCE DAILY WITH [facility] EVENING [place] MEAL [facility] insulin Yes inject Univers glargine,hu 28 under the ity of m.rec.anlog 14:56: skin. [place] (TOUJEO 08 [facility] U-300 INSULIN SC) insulin Yes inject Univers glargine,hu 03-11 under the ity of m.rec.anlog 14:56: skin. [place] (TOUJEO 08 [facility] U-300 INSULIN SC) metFORMIN 2018-02 Yes 1000mg Take 1,000 Univers 1,000 mg 0-08 mg by ity of tablet 08:58: mouth 2 [place] 29 (two) Medical times Branch daily with meals. lisinopril- 2018-02 Yes 1{tbl} Take 1 Un han hydrochloro 0-08 tablet by ity of thiazide 08:58: mouth [place] 20-12.5 mg 29 daily. Medical per tablet Branch metFORMIN 2018-02 Yes 1000mg Take 1,000 Univers 1,000 mg 0-08 mg by ity of tablet 08:58: mouth 2 [place] 29 (two) Medical times [place] daily with meals. lisinopril- 2018-02 Yes 1{tbl} Take 1 Un han hydrochloro 0-08 tablet by ity of thiazide 08:58: mouth [place] 20-12.5 mg 29 daily. Medical per tablet Branch Zestoretic Zestoretic 2017-02 Yes Kelli Alexandre [address] [facility] Clinics Procedures This patient has no known procedures. Encounters Start End Encounter Admission Attending Care Care Encounter Source Date/Time Date/Time Type Type Clinicians Facility Department ID 2021-05-23 2021-05-23 Outpatient R SONA [facility] [id number] Univers 10:00:00 10:00:00 CULLEN [id number] ity [facility] [place] [facility] 2021-03-14 2021-03-14 Outpatient R CHEMA, [facility] [id number] Univers 13:00:00 13:00:00 MIGUEL ANGEL [id number] ity of [facility] 2021-03-14 2021-03-14 Outpatient R CHEMA, [facility] [id number] Univers 13:00:00 13:00:00 MIGUEL ANGEL ity [facility] [place] [facility] 2020-12-03 2020-12-03 [facility]phone [facility] [id number] Univers 00:00:00 00:00:00 Cullen SPECIALTY [id number] ity of C[place] [id number] [place] AT [id number] [address] 2020-11-26 2020-11-26 Telephone [facility] [id number] Univers 00:00:00 00:00:00 Cullen SPECIALTY [id number] ity [id number] [place] [id number] [address] 2020-11-22 2020-11-22 [facility] [id number] Univers 13:20:00 13:20:00 CULLEN [id number] ity [facility] [place] [facility] 2020-11-22 2020-11-22 [facility] [id number] Univers 08:30:00 08:30:00 CULLEN ity [facility] [place] [facility] 2020-10-27 2020-10-27 Outpatient R CHEMA [facility] [id number] Univers 15:00:00 15:00:00 MIGUEL ANGEL [id number] ity [facility] [place] [facility] 2020-10-20 2020-10-20 Outpatient R KAIT [facility] [id number] Univers 13:30:00 13:30:00 MICHEL [id number] ity [facility] [place] [facility] 2020-10-20 2020-10-20 [facility] [id number] Univers 13:30:00 13:30:00 FABIOONG ity [facility] [place] [facility] 2020-10-04 2020-10-04 Outpatient R JOSE CGIBSONGISELLE [facility] [id number] Univers 14:10:00 14:10:00 CULLEN [id number] ity [facility] [place] [facility] 2020-10-04 2020-10-04 Outpatient R JOSE CGIBSONGISELLE [facility] [id number] Univers 14:10:00 14:10:00 CULLEN ity [facility] [place] [facility] 2020-09-20 2020-09-20 Outpatient R KASHMIRGISELLE [facility] [id number] Univers 11:20:00 11:20:00 CULLEN [id number] ity [facility] [place] [facility] 2020-09-20 2020-09-20 Outpatient R KASHMIRGISELLE [facility] [id number] Univers 11:20:00 11:20:00 CULLEN ity [facility] [place] [facility] 2020-09-13 2020-09-13 Outpatient R KASHMIRGISELLE [facility] [id number] Univers 11:20:00 11:20:00 CULLEN [id number] ity [facility] [place] [facility] 2020-09-13 2020-09-13 Outpatient R JOSE CGIBSONGISELLE [facility] [id number] Univers 11:20:00 11:20:00 CULLEN ity [facility] [place] [facility] 2020-09-06 2020-09-06 Outpatient R SONA [facility] [id number] Univers 13:30:00 13:30:00 CULLEN [id number] ity [facility] [place] [facility] 2020-09-02 2020-09-02 Outpatient R [facility] [id number] Univers 14:30:00 14:30:00 [id number] ity [facility] [place] [facility] 2020-09-02 2020-09-02 Outpatient R DAMIAN STEPHEN [facility] [id number] Univers 14:30:00 14:30:00 ity [facility] [place] [facility] 2020-08-10 2020-08-10 Outpatient R DAMIAN STEPHEN [facility] [id number] Univers 00:00:00 00:00:00 [id number] ity [facility] [place] [facility] 2020-08-10 2020-08-10 Outpatient R DAMIAN STEPHEN [facility] [id number] Univers 00:00:00 00:00:00 ity of [facility] 2020-08-05 2020-08-05 Outpatient Charmaine SALGADO [facility] [id number] Univers 13:30:00 13:30:00 [id number] ity of [facility] 2020-08-05 2020-08-05 Outpatient Charmaine SALGADO [facility] [id number] Univers 00:00:00 00:00:00 ity of [facility] 2020-07-30 2020-07-30 Outpatient Charmaine SALGADO [facility] [id number] Univers 09:40:00 09:40:00 [id number] ity of [facility] 2020-07-30 2020-07-30 Outpatient Charmaine SALGADO [facility] [id number] Univers 00:00:00 00:00:00 ity of [facility] 2020-07-29 2020-07-29 Outpatient Charmaine SALGADO [facility] [id number] Univers 09:00:00 09:00:00 [id number] ity of [facility] 2020-07-29 2020-07-29 Outpatient Charmaine SALGADO [facility] [id number] Univers 00:00:00 00:00:00 ity of [facility] 2020-07-23 2020-07-23 Outpatient Charmaine SALGADO [facility] [id number] Univers 09:40:00 09:40:00 [id number] ity of [facility] 2020-07-23 2020-07-23 Outpatient Charmaine SALGADO [facility] [id number] Univers 00:00:00 00:00:00 ity of [facility] 2020-07-22 2020-07-22 Outpatient R [facility] [id number] Univers 11:30:00 11:30:00 [id number] ity of [facility] 2020-07-22 2020-07-22 Outpatient Charmaine SALGADO [facility] [id number] Univers 11:30:00 11:30:00 ity of [facility] 2020-07-08 2020-07-08 Outpatient Charmaine [facility] [id number] Univers 09:30:00 09:30:00 [id number] ity [facility] [place] [facility] 2020-07-08 2020-07-08 Outpatient R STEPHEN SALGADO [facility] [id number] Univers 09:30:00 09:30:00 ity [facility] [place] [facility] 2020-07-01 2020-07-01 Outpatient R [facility] [id number] Univers 09:30:00 09:30:00 [id number] ity [facility] [place] [facility] 2020-07-01 2020-07-01 Outpatient R STEPHEN SALGADO [facility] [id number] Univers 09:30:00 09:30:00 ity [facility] [place] [facility] 2020-03-15 2020-03-15 Outpatient [facility] [id number] Univers 13:30:00 13:30:00 [id number] ity [facility] [place] [facility] 2020-03-15 2020-03-15 Outpatient R KITA [facility] [id number] Univers 13:30:00 13:30:00 ROSGINGERA ity o f [facility] 2020-03-11 2020-03-11 Outpatient R [facility] [id number] Univers 13:45:00 13:45:00 [id number] ity [facility] [place] [facility] 2020-03-11 2020-03-11 Outpatient R KITA [facility] [id number] Univers 13:45:00 13:45:00 RODRIGO ity o f [facility] 2020-03-03 2020-03-03 Outpatient R [facility] [id number] Univers 08:30:00 08:30:00 [id number] [facility] [place] 2019-03-20 2019-03-20 Telephone [facility] [id number] 00:00:00 00:00:00 Sallie Garcia BOILER CLEANER [id number] [facility] [id number] MATERNAL [id number] & CHILD [address] [place] [address] 2018-03-08 2018-03-08 [facility] [id number] 09:47:00 09:47:00 t [facility] Medicine Medicine Outpati ent Clinics 2017-11-29 2017-11-29 [facility] [id number] 16:00:00 16:00:00 [facility] 2017-08-30 2017-08-30 Outpatient John Spencer [id number] [facility] [address] 14:45:00 14:45:00 [facility] ent Clinics Results This patient has no known results.
--- NOTE | 2020-12-30 19:04 | RAD REPORT ---
EXAM DESCRIPTION: RAD - Chest Single View - 12/30/2020 6:47 pm CLINICAL HISTORY: Dizziness and weakness COMPARISON: Chest Pa And Lat (2 Views) dated 06/10/2020; CHEST SINGLE VIEW dated 12/11/2009 FINDINGS: Lines: None. Lungs: No evidence of edema or pneumonia. Pleural: No significant pleural effusions or pneumothorax. Cardiac: The heart size is within normal limits. Bones: No acute fractures. Other: IMPRESSION: No acute cardiopulmonary disease.
[2020-12-30 19:11] LABS: Absolute Lymphocytes (CBC) 2.6 K/uL (0.7-4.9); Basophils % 0.4 % (0-1.3); Hematocrit 34.6 % (36.0-45.0); Lymphocytes % 19.4 % (15.3-44.8); MPV 8.3 fL (7.6-11.3); RBC Red Blood Cell Count 4.13 M/uL (3.86-4.86)
[2020-12-30 19:12] LABS: Protime INR 0.93
[2020-12-30 19:24] LABS: ALT/SGPT 22 U/L (12-78); AST/SGOT 13 U/L (15-37); Albumin 2.9 g/dL (3.4-5.0); Alkaline Phosphatase 114 U/L (45-117); BUN Blood Urea Nitrogen 18 mg/dL (7-18); Bicarbonate 27 mmol/L (21-32); Bilirubin Direct < 0.1 mg/dL (0-0.2); Bilirubin Total 0.2 mg/dL (0.2-1.0); Glucose Level 291 mg/dL (74-106); Magnesium 2.4 mg/dL (1.8-2.4); NT PRO-BNP 372 pg/mL (<125); Potassium 4.1 mmol/L (3.5-5.1); Protein, Total 7.4 g/dL (6.4-8.2); Sodium Level 137 mmol/L (136-145); Troponin (Emerg Dept Use Only) < 0.02 ng/mL (0.0-0.045)
[2020-12-30] MEDS ORDERED: MECLIZINE HCL 12.5 MG TAB ONE (19:25)
[2020-12-30] MEDS ORDERED: NA CHLORIDE 0.9% 1,000 ML ONE (19:25)
--- NOTE | 2020-12-30 19:26 | RAD REPORT ---
EXAM DESCRIPTION: CT - Head Brain Wo Cont - 12/30/2020 7:12 pm CLINICAL HISTORY: DIZZINESS COMPARISON: No comparisons TECHNIQUE: All CT scans are performed using dose optimization technique as appropriate and may inclu de automated exposure control or mA/KV adjustment according to patient size. FINDINGS: No intracranial hemorrhage, hydrocephalus or extra-axial fluid collection.No areas of brai n edema or evidence of midline shift. The paranasal sinuses and mastoids are clear. The calvarium is intact. IMPRESSION: No acute intracranial abnormality.
[2020-12-30 20:32] LABS: Urine Blood Trace-intact (Negative); Urine Glucose 3+ (Negative); Urine Protein 2+ (Negative); Urine Specific Gravity >=1.030 (1.005-1.030); Urine pH 5.5 (5.0-7.0)
[2020-12-30] MEDS ORDERED: CEFTRIAXONE 1000 MG/VIAL ONE (20:59)
--- NOTE | 2020-12-30 23:03 | ER ---
Nurse's Notes [facility] Name: Shasta Goncalves Age: 45 yrs Sex: Female : 1975 Arrival Date: 12/30/2020 Time: 17:39 Bed 20 Private MD: Diagnosis: Dizziness and giddiness;Type 2 diabetes mellitus with hyperglycemia;Essential (primary) hypertension;UTI/ Urinary tract infection, site not specified Presentation: 12/30 17:48 Chief complaint: Patient states: "I had an episode where I thought I was going to pass ss out. I got shaky and dizzy. It was just a weird feeling. I've been under a lot of stress lately and anxious and I don't know, maybe it all just hit me." Pt also reports that she has not been taking her prescribed medications for the past few months for her HTN, DM and high cholesterol. Coronavirus screen: Client denies travel out of the [place] in the last 14 days. Ebola Screen: Patient denies exposure to infectious person. Patient denies travel to an Ebola-affected area in the 21 days before illness onset. Initial Sepsis Screen: Does the patient meet any 2 criteria? No. Patient's initial sepsis screen is negative. Does the patient have a suspected source of infection? No. Patient's initial sepsis screen is negative. Risk Assessment: Do you want to hurt yourself or someone else? Patient reports no desire to harm self or others. Onset of symptoms was December 30, 2020. 17:48 Method Of Arrival: Ambulatory ss 17:48 Acuity: HAYDE 3 ss 17:50 Note "I also want to talk to the doctor about something else. Depending on which way I ss turn my head, I get these dizzy spells almost as if the room is spinning. It doesn't last long. It's been going on for a few weeks.". Triage Assessment: 18:50 General: Appears in no apparent distress. well groomed, well developed, Behavior is sl2 calm, cooperative, appropriate for age. 18:50 Pain: Denies pain. Neuro: Reports dizziness. Cardiovascular: No deficits noted. sl2 Respiratory: No deficits noted. Reports. GI: No deficits noted. No signs and/or symptoms were reported involving the gastrointestinal system. : No deficits noted. No signs and/or symptoms were reported regarding the genitourinary system. Derm: No deficits noted. No signs and/or symptoms reported regarding the dermatologic system. Musculoskeletal: No deficits noted. No signs and/or symptoms reported regarding the musculoskeletal system. 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 - Social history:: Smoking status: Patient reports the use of cigarette tobacco products, denies chronic smoking, but will smoke occasionally, Patient/guardian denies using street drugs. Screenin:48 Abuse screen: Denies threats or abuse. Nutritional screening: No deficits noted. tw2 Tuberculosis screening: No symptoms or risk factors identified. Fall Risk None identified. Assessment: 20:45 Reassessment: Patient appears in no apparent distress at this time. General: Appears in cc4 no apparent distress. Behavior is calm, cooperative. Pain: Denies pain. Neuro: No deficits noted. Level of Consciousness is awake, alert, obeys commands, Oriented to person, place, time, situation. Cardiovascular: No deficits noted. Capillary refill < 3 seconds Rhythm is sinus rhythm. Respiratory: No deficits noted. Airway is patent Breath sounds are clear bilaterally. GI: No signs and/or symptoms were reported involving the gastrointestinal system. : Reports burning with urination, since 2 days ago. EENT: No signs and/or symptoms were reported regarding the EENT system. Derm: No deficits noted. Skin is intact. Musculoskeletal: No deficits noted. Capillary refill < 3 seconds, Range of motion: intact in all extremities. 20:45 Reassessment: IV NS patent/infusing right AC with no difficulty \\T\\ open rate; bending cc4 right arm intermittently cutting off flow; encouraged ti keep right arm straight to facilitate IV flow with v/u. 23:35 Reassessment: IV NS infusion complete; blood drawn \\T\\ sent to lab for repeat troponin; cc4 voices no complaints. Vital Signs: 17:48 BP 169 / 94; Pulse 87; Resp 14; Temp 97.8(TE); Pulse Ox 100% on R/A; Weight 99.79 kg; ss Height 5 ft. 5 in. (165.10 cm); Pain 0/10; 20:45 BP 155 / 73; Pulse 74; Resp 18; Pulse Ox 100% ; cc4 21:22 BP 143 / 64; Pulse 74; Resp 18; Pulse Ox 100% on R/A; ld1 22:30 BP 160 / 76; Pulse 72; Resp 18; Pulse Ox 100% on R/A; cc4 23:20 BP 107 / 92; Pulse 76; Resp 18; Temp 98.0(O); Pulse Ox 100% on R/A; cc4 17:48 Body Mass Index 36.61 (99.79 kg, 165.10 cm) ED Course: 17:39 Patient arrived in ED. as 17:46 Noel Vieira MD is Attending Physician. kdr 17:48 Arm band placed on right wrist. ss 17:50 Triage completed. ss 17:50 Bed in low position. Call light in reach. tw2 18:45 Inserted saline lock: 20 gauge in right antecubital area, using aseptic technique. tw2 Blood collected. 18:46 XRAY Chest (1 view) In Process Unspecified. EDMS 18:49 Attending Physician role handed off by Noel Vieira MD 7 18:49 Fabrice Sprague MD is Attending Physician. mh7 19:11 CT Head Brain wo Cont In Process Unspecified. EDMS 19:18 [address] Delaney, LESLY is Primary Nurse. sl2 20:48 Urine --Ancillary Sent. cc4 20:48 Urine --Ancillary (enter results) Sent. cc4 20:48 Urine Dipstick-Ancillary Sent. cc4 20:48 Basic Metabolic Panel Sent. cc4 20:48 CBC with Diff Sent. cc4 20:48 LFT's Sent. cc4 20:48 Magnesium Sent. cc4 23:04 Troponin (emerg Dept Use Only) Sent. cc4 23:20 No provider procedures requiring assistance completed. cc4 23:20 IV discontinued, intact, bleeding controlled, No redness/swelling at site. Pressure cc4 dressing applied. Administered Medications: 19:31 Drug: Meclizine 25 mg Route: PO; sl2 23:20 Follow up: Response: No adverse reaction; Other cc4 19:32 Drug: NS 0.9% 1000 ml Route: IV; Rate: 1 bolus; Site: right antecubital; sl2 23:20 Follow up: Response: No adverse reaction; IV Status: Completed infusion; IV Intake: cc4 1000ml 21:03 Drug: Rocephin (cefTRIAXone) 1 grams Route: IV; Rate: per protocol; Site: right ld1 antecubital; 23:20 Follow up: Urine output 350 ml; Response: No adverse reaction cc4 Intake: 23:20 IV: 1000ml; Total: 1000ml. cc4 Output: 23:20 Urine: 350ml; Total: 350ml. cc4 Outcome: 23:03 Discharge ordered by . avery 23:17 Patient left the ED. cc4 23:20 Discharged to home ambulatory. cc4 23:20 Condition: improved 23:20 Discharge instructions given to patient, Instructed on discharge instructions, follow up and referral plans. medication usage, Demonstrated understanding of instructions, follow-up care, medications, Prescriptions given X 2. Addendum: 01/03/2021 08:12 Addendum: Culture Results: Positive urine culture. No further action required. Bacteria i w sensitive to prescribed antibiotic. Signatures: Dispatcher [employer] EDMS Noel Vieira MD MD kdr Martinez, Amelia as Williams, Irene, RN RN iw Christine Sepulveda RN RN ss Ashley Katz RN RN tw2 Fabrice Sprague MD MD 7 Katelyn Thorne RN RN ld1 Katherine Ibarra, LESLY RN cc4 Court Delaney RN RN sl2
--- NOTE | 2020-12-30 23:04 | EDPHYS ---
Physician Documentation [facility] Name: Shasta Goncalves Age: 45 yrs Sex: Female : 1975 Arrival Date: 12/30/2020 Time: 17:39 Bed 20 Private MD: ED Physician Fabrice Sprague HPI: 12/30 18:32 This 45 yrs old Female presents to ER via Ambulatory with complaints of Near kdr Syncope. 18:32 The patient has experienced near-syncope, almost passed out, felt dizzy, felt generally kdr weak, felt like heart was pounding. Onset: The symptoms/episode began/occurred suddenly, just prior to arrival, this morning. Duration: This was a single episode, Lasted for an hour or so. Context: the episode(s) was witnessed, by no one, occurred at home, occurred while the patient was standing, Just prior to the episode the patient experienced dizziness, lightheadedness, weakness. Associated injury: The patient did not suffer any apparent associated injury. Associated signs and symptoms: The patient has no apparent associated signs or symptoms. Current symptoms: Patient states that she feels nervous and somewhat tremulous and dizzy. The patient has not experienced similar symptoms in the past. The patient has not recently seen a physician. Patient states that she has an episode today where she felt like she was going to pass out. She indicated that her lower extremities were wobbly and weak when she was generally shaking and dizzy. She states that she has been under a lot of stress lately and anxious and feels like everything just came up around 1 time. She also has recently has not been taking her medications including her blood pressure medicine and glucose control medications. 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 - Social history:: Smoking status: Patient reports the use of cigarette tobacco products, denies chronic smoking, but will smoke occasionally, Patient/guardian denies using street drugs. ROS: 18:32 Constitutional: Negative for fever, chills, and weight loss, Eyes: Negative for injury, kdr pain, redness, and discharge, Neck: Negative for injury, pain, and swelling, Cardiovascular: Negative for chest pain, palpitations, and edema, Respiratory: Negative for shortness of breath, cough, wheezing, and pleuritic chest pain, Abdomen/GI: Negative for abdominal pain, nausea, vomiting, diarrhea, and constipation, Back: Negative for injury and pain, : Negative for injury, bleeding, discharge, and swelling, MS/Extremity: Negative for injury and deformity, Skin: Negative for injury, rash, and discoloration, Psych: Negative for depression, anxiety, suicide ideation, homicidal ideation, and hallucinations, Allergy/Immunology: Negative for hives, rash, and allergies, Endocrine: Negative for neck swelling, polydipsia, polyuria, polyphagia, and marked weight changes, Hematologic/Lymphatic: Negative for swollen nodes, abnormal bleeding, and unusual bruising. 18:32 Neuro: Positive for dizziness, near syncope, weakness. Exam: 18:32 Constitutional: This is a well developed, well nourished patient who is awake, alert, kdr and in no acute distress. Head/Face: Normocephalic, atraumatic. Eyes: Pupils equal round and reactive to light, extra-ocular motions intact. Lids and lashes normal. Conjunctiva and sclera are non-icteric and not injected. Cornea within normal limits. Periorbital areas with no swelling, redness, or edema. Neck: Trachea midline, no thyromegaly or masses palpated, and no cervical lymphadenopathy. Supple, full range of motion without nuchal rigidity, or vertebral point tenderness. No Meningismus. Chest/axilla: Normal chest wall appearance and motion. Nontender with no deformity. No lesions are appreciated. Cardiovascular: Regular rate and rhythm with a normal S1 and S2. No gallops, murmurs, or rubs. Normal PMI, no JVD. No pulse deficits. Respiratory: Lungs have equal breath sounds bilaterally, clear to auscultation and percussion. No rales, rhonchi or wheezes noted. No increased work of breathing, no retractions or nasal flaring. Abdomen/GI: Soft, non-tender, with normal bowel sounds. No distension or tympany. No guarding or rebound. No evidence of tenderness throughout. Back: No spinal tenderness. No costovertebral tenderness. Full range of motion. Skin: Warm, dry with normal turgor. Normal color with no rashes, no lesions, and no evidence of cellulitis. MS/ Extremity: Pulses equal, no cyanosis. Neurovascular intact. Full, normal range of motion. Neuro: Awake and alert, GCS 15, oriented to person, place, time, and situation. Cranial nerves II-XII grossly intact. Motor strength 5/5 in all extremities. Sensory grossly intact. Cerebellar exam normal. Normal gait. Psych: Awake, alert, with orientation to person, place and time. Behavior, mood, and affect are within normal limits. Vital Signs: 17:48 BP 169 / 94; Pulse 87; Resp 14; Temp 97.8(TE); Pulse Ox 100% on R/A; Weight 99.79 kg; ss Height 5 ft. 5 in. (165.10 cm); Pain 0/10; 20:45 BP 155 / 73; Pulse 74; Resp 18; Pulse Ox 100% ; cc4 21:22 BP 143 / 64; Pulse 74; Resp 18; Pulse Ox 100% on R/A; ld1 22:30 BP 160 / 76; Pulse 72; Resp 18; Pulse Ox 100% on R/A; cc4 23:20 BP 107 / 92; Pulse 76; Resp 18; Temp 98.0(O); Pulse Ox 100% on R/A; cc4 17:48 Body Mass Index 36.61 (99.79 kg, 165.10 cm) ss MDM: 22:59 Differential Diagnosis: cardiac arrhythmia, drug effect, emotional response, idiopathic mh7 syncope. Data reviewed: vital signs, nurses notes, lab test result(s), cardiac enzymes, CBC, electrolytes, urinalysis, EKG, radiologic studies, CT scan, plain films. Data interpreted: Pulse oximetry: on room air is 100 %. Interpretation: normal. Counseling: I had a detailed discussion with the patient and/or guardian regarding: the historical points, exam findings, and any diagnostic results supporting the discharge/admit diagnosis, the presence of at least one elevated blood pressure reading (>120/80) during this emergency department visit, lab results, radiology results, the need for outpatient follow up, to return to the emergency department if symptoms worsen or persist or if there are any questions or concerns that arise at home. Response to treatment: the patient's symptoms have resolved after treatment, the patient's blood pressure is in an acceptable range, mental status has returned to baseline, the patient no longer shows bradycardia, the patient is not short of breath, the patient is not tachycardic, the patient's pain is gone, the patient's temperature has normalized. ED course: Well-appearing, no acute distress, vital signs stable, no focal neurological deficits. No headache, dizziness, nausea, vomiting, weakness or other complaints. Patient states that she started feeling lightheaded while having an argument with her children. She admits to not taking her blood pressure and diabetes medication over the past month. She does have medication at home and refills available. Discussed all test results and findings with the patient. She request to be discharged in ED at this time and will follow up with her doctor.. 23:03 Patient medically screened. mh7 12/30 18:31 Order name: Basic Metabolic Panel [facility] 12/30 18:31 Order name: CBC with Diff [facility] 12/30 18:31 Order name: LFT's [facility] 12/30 18:31 Order name: Magnesium [facility] 12/30 18:31 Order name: NT PRO-BNP; Complete Time: 19:30 [facility] 12/30 18:31 Order name: PT-INR; Complete Time: 19:15 [facility] 12/30 18:31 Order name: Troponin (emerg Dept Use Only); Complete Time: 19:30 [facility] 12/30 18:31 Order name: Basic Metabolic Panel; Complete Time: 19:30 [facility] 12/30 18:31 Order name: CBC with Automated Diff; Complete Time: 19:16 [facility] 12/30 18:31 Order name: Liver (Hepatic) Function; Complete Time: 19:30 [facility] 12/30 18:31 Order name: Magnesium; Complete Time: 19:30 [facility] 12/30 20:32 Order name: Urine Dipstick-Ancillary [facility] 12/30 20:34 Order name: Urine --Ancillary (enter results) [facility] 12/30 20:35 Order name: Urine --Ancillary; Complete Time: 21:14 [facility] 12/30 18:31 Order name: XRAY Chest (1 view); Complete Time: 19:15 [facility] 12/30 18:31 Order name: EKG; Complete Time: 18:31 [facility] 12/30 18:31 Order name: Cardiac monitoring; Complete Time: 20:48 [facility] 12/30 18:31 Order name: EKG - Nurse/Tech; Complete Time: 20:48 [facility] 12/30 18:31 Order name: IV Saline Lock; Complete Time: 18:47 kdr 12/30 18:31 Order name: Labs collected and sent; Complete Time: 18:47 kdr 12/30 18:31 Order name: O2 Per Protocol; Complete Time: 18:47 kdr 12/30 18:31 Order name: O2 Sat Monitoring; Complete Time: 18:47 kdr 12/30 18:31 Order name: CT Head Brain wo Cont; Complete Time: 19:30 kdr 12/30 19:16 Order name: Urine Dipstick-Ancillary (obtain specimen); Complete Time: 20:48 [facility] 12/30 20:40 Order name: Urine Culture [facility] 12/30 21:32 Order name: Troponin (emerg Dept Use Only) [facility] 12/30 21:32 Order name: Troponin (Emerg Dept Use Only); Complete Time: 22:58 [facility] 12/30 19:16 Order name: Urine Test (obtain specimen); Complete Time: 20:48 [facility] Administered Medications: 19:31 Drug: Meclizine 25 mg Route: PO; sl2 23:20 Follow up: Response: No adverse reaction; Other cc4 19:32 Drug: NS 0.9% 1000 ml Route: IV; Rate: 1 bolus; Site: right antecubital; sl2 23:20 Follow up: Response: No adverse reaction; IV Status: Completed infusion; IV Intake: cc4 1000ml 21:03 Drug: Rocephin (cefTRIAXone) 1 grams Route: IV; Rate: per protocol; Site: right ld1 antecubital; 23:20 Follow up: Urine output 350 ml; Response: No adverse reaction cc4 Disposition Summary: 12/30/20 23:03 Discharge Ordered [facility] Symptoms: have improved mh Condition: Stable [facility] Diagnosis - Dizziness and giddiness mh7 - Type 2 diabetes mellitus with hyperglycemia 7 - Essential (primary) hypertension mh7 - UTI/ Urinary tract infection, site not specified [facility] Followup: 7 - With: Private Physician - When: 1 - 2 days - Reason: Worsening of condition, Recheck today's complaints, Continuance of care, Re-evaluation by your physician Discharge Instructions: - Discharge Summary Sheet 7 - Dizziness 7 - Hypertension, Adult, [id number] mh7 - Hyperglycemia, [id number] mh7 - Urinary Tract Infection, Adult, [id number] [facility] Forms: - Medication Reconciliation Form [facility] - Thank You Letter [facility] - Antibiotic Education [facility] - Prescription Opioid Use [facility] Prescriptions: - Cephalexin 500 mg Oral Capsule - take 1 capsule by ORAL route every 12 hours for 7 days; 14 capsule; Refills: 0, [facility] Product Selection Permitted - Pyridium 200 mg Oral Tablet - take 1 tablet by ORAL route every 8 hours for 2 days; 6 tablet; Refills: 0, [facility] Product Selection Permitted Signatures: Dispatcher [employer] EDNY Noel Vieira MD MD [facility] Christine Sepulveda RN RN ss Fabrice Sprague MD MD 7 Katelyn Thorne RN RN ld1 Court Delaney RN RN sl2 Katherine Ibarra RN cc4
[2020-12-31 00:26] VITALS: TEMP 97.8; O2SAT 100
[2020-12-31 00:27] VITALS: BP 143/64
--- NOTE | 2020-12-31 13:18 | EKG ---
Test Date: 2020-12-30 Test Time: 20:44:02 Master Welder: LAUREANO MEASUREMENT RESULTS: Intervals: Rate: 72 MS: 160 QRSD: 74 QT: 404 QTc: 442 Shiner: P: 28 MS: 160 QRS: 10 T: 33 INTERPRETIVE STATEMENTS: Normal sinus rhythm Possible Left atrial enlargement Borderline ECG Compared to ECG 06/10/2020 07:54:30 No significant changes Electronically Signed On 12-31-20 13:16:18 TANK TRUCK ENGINE MECHANIC by William Moore
== END 2020-12-30 23:17 | disposition home or self-care (01) ==
LOC: ER 17:35
DX: E11.65 Type 2 diabetes mellitus with hyperglycemia (principal); I10 Essential (primary) hypertension; N39.0 Urinary tract infection, site not specified; F17.210 Nicotine dependence, cigarettes, uncomplicated
CPT/HCPCS: 96361; 93005; 87088; 85025; 87086; 80048; 36415; 83735; 81025; 85610; 80076; 87077; 87186; 81003; 84484 ×2; 83880; 70450; 71045; 96374; 99284; J7030

== ENCOUNTER 2021-03-23 09:41 | Emergency (ER) | payer OTHER, SELFPAY ==
--- OUTSIDE RECORDS SUMMARY | 2021-03-23 09:43 | XMS REPORT | Continuity of Care Document ---
:1975 Author Organization [facility] t Address [address] [place] [address] Care Team Providers Name Role Phone STEPHEN SALGADO Primary Care Physician Unavailable Kitty Schroeder Attending Clinician Unavailable MIGUEL ANGEL BEAR Attending Clinician Unavailable MARTHA ADAMS Attending Clinician Unavailable DEMETRIO LUTZ Attending Clinician Unavailable [place] STOVALL Attending Clinician Seven Lutz MD Attending Clinician Jose Garcias Attending Clinician Payers Payer Name Policy Type Policy Number Effective Date Expiration Date [facility] [id number] 2020 00:00:00 PLUS Advance Directives Directive Decision Effective Termination Comments Source Date Date Healthcare Agents on N/A Univ ersity FileNameRelationshSelect Medical Special[facility] - [facility]althcare [facility] Agent Medical RelationshipCommunicationBanner [facility] Branch [facility] [phone] (Mobile) Problems Condition Condition Condition Status Onset Resolution Last Treating Co mments Source Name Details Category Date Date Treatment Clinician Date Encounter Encounter Disease Active Uni vers for well for well 03-11 [place]y of [place] exam [place] 00 Medical routine routine Branch gynecologi gynecologi maite exam maite exam Abnormal Abnormal Disease Active Unive rs uterine uterine 03-11 ity of bleeding bleeding 00:00: [place] [address] Medical Branch Class 2 Class 2 Disease Active Univers obesity obesity 03-11 [place] of with body [place] mass index 00 Me dical (BMI) of (BMI) of Branch 38.0 to 38.0 to 38.9 in 38.9 in adult, adult, unspecifie unspecifie d obesity d obesity type, type, unspecifie unspecifie d whether d whether serious serious comorbidit comorbidit y present y present Essential Essential Disease Active Uni vers hypertensi hypertensi - it y of on on 00:: [address] Branch BMI BMI Disease Active 2018-02 Univers 38.0-38.9, 38.0-38.9, 0-08 it y of adult adult 00:00: [address] Charcot Charcot Problem Active [facility] foot [...] NO KNOWN Drug Active Univers ALLERGIE Class it of S [facility] Social History Social Habit Start Date Stop Date Quantity Comments Source Exposure to Not sure [facility] SARS-CoV-2 (event) Medica l Branch History of tobacco Smoker [facility] use [facility] Alcohol intake 2021-03-14 2021-03-14 .14 /d [facility] 00:00:00 00:00:00 Medical Branch Cigarettes smoked 2020-07-08 2020-07-08 [facility] current (pack per 00:00:00 00:00:00 Medical Branch day) - Reported Tobacco use and 2020-07-08 2020-07-08 Never used [facility] exposure 00:00:00 00:00:00 Medical Branch Sex [birth year] [facility] 00:00:00 00:00:00 Medical Branch Smoking Status Start Date Stop Date Source Former smoker 2020-07-08 00:00:00 2020-07-08 00:00:00 [facility] Medical Branch Medications Ordered Filled Start Stop Current Ordering Indication Dosage Frequency Signature Comments Components Source Medication Medication Date Date Medication? Clinician (SIG) Name Name lisinopril- 2021- No 1{tbl} Take 1 U nivers hydrochloro 03-14 tablet by it y of thiazide 14:15: 00:00 mouth [place] 20-12.5 mg 17 :00 daily. Medical per tablet Branch insulin Yes 35U inject 35 Unive rs degludec -31 Units ity of 200 unit/mL 14:13: under the [place] (3 mL) In 43 skin Medical daily. Branch semaglutide Yes 3mg Take 3 mg U nivers 3 mg Tab 03-14 by mouth ity of 14:13: daily. [place] 27 [facility] Branch metFORMIN 2021- No 1000mg Take 1,000 Univers 1,000 mg 03-14 mg by ity of tablet 14:12: 00:00 mouth 2 [place] 59 :00 (two) Medical times Branch daily with meals. insulin 2021- No inject Univers glargine,hu 03-14 under the it y of m.rec.anlog 14:12: 00:00 [place] (TOUJEO 47 :00 Medical SOLOSTAR Branch U-300 INSULIN SC) metFORMIN Yes 1000mg Take 1,000 Univers 1,000 mg 1-28 mg by ity of tablet 10:57: mouth 2 [place] 26 (two) Medical times Branch daily with meals. metFORMIN Yes 1000mg Take 1,000 Univers 1,000 mg 1-28 mg by ity of tablet 10:57: mouth 2 [place] 26 (two) Medical times Branch daily with meals. miSOPROStoL Yes [id number] 200ug Take 1 Univers 200 mcg 1-28 100 tablet by ity of tablet 00:00: mouth [place] [facility] CTIONS. Branch Take one tab the night before and one tab the morning of procedure miSOPROStoL Yes [id number] 200ug Take 1 Univers 200 mcg 1-28 100 tablet by ity of tablet 00:00: mouth [place] [facility] CTIONS. Branch Take one tab the night before and one tab the morning of procedure miSOPROStoL Yes [id number] 200ug Take 1 Univers 200 mcg 1-28 100 tablet by ity of tablet 00:00: mouth [place] [facility] CTIONS. Branch Take one tab the night before and one tab the morning of procedure ONETOUCH Yes Univers ULTRA TEST 1-26 ity of strip 00:00: [place] [address] Medical Branch ONETOUCH Yes Univers DELICA PLUS 1-26 ity of LANCET 33 00:00: [facility] Misc 00 Medical Branch terbinafine Yes Univer s HCL 250 mg 1-05 ity of tablet 00:00: [place] [address] Medical Branch latanoprost Yes INSTILL 1 U nivers 0.005 % 1-03 DROP INTO ity of ophthalmic 00:00: EACH EYE [place] as drops 00 EVERY DAY Medical AT BEDTIME Branch lisinopriL 2020-02 Yes Univers 40 mg 2-29 ity of tablet 00:00: [place] 00 Medical Branch lisinopriL 2020-02 Yes Univers 40 mg 2-29 ity of tablet 00:00: [place] [address] Medical Branch BD STEWART 2ND 2020-02 Yes USE EVERY U nivers GEN PEN 2-29 DAY ity of NEEDLE 32 00:00: DIRECTED [place] gauge x 00 Medical " Ndle Branch lisinopriL 2020-02- No Univer s 40 mg 2-29 -31 ity of tablet 00:00: 00:00 [place] 00 :00 Medical Branch sulfamethox 2020-02 Yes TAKE 1 Univ ers azole-trime 2-19 TABLET BY ity of thoprim 00:00: MOUTH [place] 800-160 mg 00 EVERY 12 Medic al per tablet HOURS FOR Bran ch 7 DAYS sulfamethox 2020-02 Yes TAKE 1 Univ ers azole-trime 2-19 TABLET BY ity of thoprim 00:00: MOUTH [place] 800-160 mg 00 EVERY 12 Medic al per tablet HOURS FOR Bran ch 7 DAYS sulfamethox 2020-02 Yes TAKE 1 Univ ers azole-trime 2-19 TABLET BY ity of thoprim 00:00: MOUTH [place] 800-160 mg 00 EVERY 12 Medic al per tablet HOURS FOR Bran ch 7 DAYS cephALEXin 2020-02- No Univer s 500 mg 03-07 ity of capsule 00:00: 00:00 [place] 00 :00 Medical Branch cephALEXin 2020-02- No Univer s 500 mg 03-07 ity of capsule 00:00: 00:00 [place] 00 :00 Medical Branch LISINOPRIL- Yes [id number] Take 1 Univers HYDROCHLORO 9-22 tablet by ity of THIAZIDE 00:00: mouth once [place] 20-12.5 mg 00 daily Medical per tablet Branch ONETOUCH Yes [id number] USE TO Un han ULTRA2 9-22 TEST BLOOD ity of METER Misc 00:00: SUGAR [place] 00 TWICE Medical DAILY Branch LISINOPRIL- Yes [id number] Take 1 Univers HYDROCHLORO 9-22 tablet by ity of THIAZIDE 00:00: mouth once [place] 20-12.5 mg 00 daily Medical per tablet Branch ONETOUCH Yes [id number] USE TO Un han ULTRA2 9-22 TEST BLOOD ity of METER Misc 00:00: SUGAR [place] 00 TWICE Medical DAILY Branch ONETOUCH Yes [id number] USE TO Un han ULTRA2 9-22 TEST BLOOD ity of METER Misc 00:00: SUGAR [place] 00 TWICE Medical DAILY Branch LISINOPRIL- 2020-0 2021- No [id number] Take 1 Univers HYDROCHLORO 9-22 01-31 tablet by it y of THIAZIDE 00:00: 00:00 mouth [place] 20-12.5 mg 00 :00 daily Medical per tablet Branch glyBURIDE 5 0 Yes [id number] 5mg Take 1 Univers mg tablet 6-10 tablet by ity o f 00:00: mouth 2 [place] 00 (two) Medical times Branch daily with meals. glyBURIDE 5 2020-0 Yes [id number] 5mg Take 1 Univers mg tablet 6-10 tablet by ity o f 00:00: mouth 2 (two) Medical times Branch daily with meals. glyBURIDE 5 2020-0 2022- No [id number] 5mg Take 1 Univers mg tablet 6-10 -31 tablet by ity of 00:00: 00:00 mouth 2 [place] 00 : (two) Medical times Branch daily with meals. metFORMIN 2020-0 Yes 1000mg Take 1 Univ ers 1,000 mg 5-28 tablet by ity of tablet 00:00: mouth 2 [place] (two) Medical times [place] daily with meals. metFORMIN 2020-0 Yes 1000mg Take 1 Univ ers 1,000 mg 5-28 tablet by ity of tablet 00:00: mouth 2 [place] (two) Medical times [place] daily with meals. metFORMIN 2020-0 2- No 1000mg Take 1 Uni vers 1,000 mg 5-28 - tablet by ity o f tablet 00:00: 00:00 mouth 2 00 : (two) Medical times [place] daily with meals. amLODIPine 2020-0 Yes 10mg Take 10 mg U nivers 10 mg 4-25 by mouth ity of tablet 00:00: daily. Medical Branch amLODIPine 2020-0 Yes 10mg Take 10 mg U nivers 10 mg 4-25 by mouth ity of tablet 00:00: daily. Medical Branch amLODIPine 2020-0 2- No 10mg Take 10 mg Univers 10 mg 4-25 - by mouth ity of tablet 00:00: 00:00 daily. [place] 00 :00 Medical Branch lovastatin 2020-0 Yes TAKE 1 Unive rs 10 mg 4-10 TABLET BY ity of tablet 00:00: MOUTH ONCE 00 DAILY WITH Medical EVENING [place] MEAL [facility] lovastatin 2020-0 Yes TAKE 1 Unive rs 10 mg 4-10 TABLET BY ity of tablet 00:00: MOUTH ONCE 00 DAILY WITH Medical EVENING [place] MEAL [facility] lovastatin 2020-0 2022- No TAKE 1 Univ ers 10 mg 4-10 -31 TABLET BY ity of tablet 00:00: 00:00 MOUTH [place]CE [place] 00 :00 DAILY WITH Medical EVENING [place] MEAL [facility] insulin Yes inject Univers glargine,hu 1-28 under the ity of m.rec.anlog 14:56: skin. [place] [facility] [place] [facility] SC) insulin Yes inject Univers glargine,hu 1-28 under the ity of m.rec.anlog 14:56: skin. [place] (TOUJEO 08 [facility] [place] U-300 INSULIN SC) lisinopril- 2018-02 Yes 1{tbl} Take 1 Un han hydrochloro 0-08 tablet by ity of thiazide 08:58: mouth [place] 20-12.5 mg 29 daily. Medical per tablet Branch lisinopril- 2018-02 Yes 1{tbl} Take 1 Un han hydrochloro 0-08 tablet by ity of thiazide 08:58: mouth [place] 20-12.5 mg 29 daily. Medical per tablet Branch Zestoretic Zestoretic 2017-02 Yes [place] [address] [facility] Vital Signs Vital Name Observation Time Observation Value Comments Source Systolic blood 2021-03-14 19:34:00 152 mm[Hg] Univer sity of RUST Diastolic blood 2021-03-14 19:34:00 92 mm[Hg] Unive rsity of [place] Heart rate 2021-03-14 19:31:00 78 /min [facility] Body height 2021-03-14 19:31:00 165.1 cm [facility] Body weight 2021-03-14 19:31:00 104.327 kg [facility] BMI 2021-03-14 19:31:00 38.27 kg/m2 [facility] Oxygen saturation in 2021-03-14 19:31:00 96 /min [facility] Arterial blood by [facility] Pulse oximetry Branch Diastolic blood 2021-03-11 17:10:00 84 mm[Hg] Unive rsity of [place] Systolic blood 2021-03-11 17:10:00 154 mm[Hg] Univer sity of [place] Heart rate 2021-03-11 16:56:00 78 /min [facility] Body temperature 2021-03-11 16:56:00 36.56 [place] [facility] Respiratory rate 2021-03-11 16:56:00 18 /min [facility] Body height 2021-03-11 16:56:00 165.1 cm [facility] Body weight 2021-03-11 16:56:00 104.917 kg [facility] BMI 2021-03-11 16:56:00 38.49 kg/m2 [facility] Procedures This patient has no known procedures. Encounters Start End Encounter Admission Attending Care Care Encounter Source Date/Time Date/Time Type Type Clinicians Facility Department ID 2021-03-21 Outpatient Alexandre STLMLC STLMLC [id number] 10:52:00 Kitty [facility] 2021-08-01 2021-08-01 Outpatient Charmaine BEAR [facility] [id number] Univers 14:30:00 14:30:00 MIGUEL ANGEL [id number] [facility] [place] [facility] 2021-04-18 2021-04-18 Outpatient Charmaine ADAMS [facility] [id number] Univers 10:00:00 10:00:00 MARTHA [id number] [facility] [place] [facility] 2021-04-12 2021-04-12 Outpatient Charmaine ADAMS [facility] [id number] Univers 14:30:00 14:30:00 MARTHA [id number] [facility] [place] [facility] 2021-03-30 2021-03-30 Outpatient DEMETRIO LOPEZ [facility] [id number] Univers 00:00:00 00:00:00 [id number] [facility] [place] [facility] 2021-03-30 2021-03-30 Outpatient DEMETRIO LOPEZ [facility] [id number] Univers 00:00:00 00:00:00 [facility] [place] [facility] 2021-03-14 2021-03-14 Outpatient Charmaine BEAR [facility] [id number] Univers 13:00:00 14:28:20 MIGUEL ANGEL [facility] [place] [facility] 2021-03-14 2021-03-14 Office [place] [facility] [id number] Univers 13:00:00 14:28:20 Visit [facility] [id number] [id number] [place] as SHANTAL?BLEA [id number] Wy ar[place] [address] MEDICAL OFFICE [facility] 2021-03-11 2021-03-11 Office Demetrio Lutz [facility] [id number] Univers 10:30:00 11:30:52 Visit Seven BARNEY [id number] it y of WOM[place]'S [id number] [place] [id number] [address] 2021-03-11 2021-03-11 Outpatient R DEMETRIO LUTZ [facility] [id number] Univers 10:30:00 11:30:52 ity of [facility] 2019-03-20 2019-03-20 [facility] [id number] 00:00:00 00:00:00 Sallie Garcia [employer] [id number] [facility] [id number] MATERNAL [id number] & CHILD [address] [place] [address] 2018-03-08 2018-03-08 Outpatient Brazmei Lopezt [id number] 09:47:00 09:47:00 [facility] Medicine Outpati ent Clinics 2017-11-29 2017-11-29 [facility] [id number] 16:00:00 16:00:00 [facility] Medicine Outpati ent Clinics 2017-08-30 2017-08-30 [facility] [id number] 14:45:00 14:45:00 [facility] Medicine Outpati ent Clinics Results This patient has no known results.
--- NOTE | 2021-03-23 11:45 | RAD REPORT ---
EXAM DESCRIPTION: RAD - Shoulder Left 2 View - 03/23/2021 11:35 am CLINICAL HISTORY: PAIN COMPARISON: No comparisons TECHNIQUE: Internal and external rotation views of the left shoulder were obtained. FINDINGS: There is no fracture or dislocation. No spurring or sclerosis at the AC joint. There is mi nimal degenerative change along the undersurface of the acromion and the acromiohumeral joint space i s narrowed slightly. No abnormal soft tissue calcifications. No degenerative changes seen in the ester ral head. No acute or suspicious findings. IMPRESSION: Minimal degenerative change to the acromion with slight narrowing of the acromial juan c l joint space. Continued, unexplained left shoulder pain can be further addressed with outpatient MR imaging.
--- NOTE | 2021-03-23 11:57 | EDPHYS ---
Physician Documentation [facility] Name: Shasta Goncalves Age: 46 yrs Sex: Female : 1975 Arrival Date: 03/23/2021 Time: 09:41 Bed 14 Private MD: Mechelle Burt C ED Physician Quan Johnson HPI: 03/23 10:04 This 46 yrs old Female presents to ER via Ambulatory with complaints of kb Shoulder Pain. 10:04 The patient or guardian complains of pain, that is acute. left shoulder. Context: kb resulted from lifting or carrying, speaker, The patient reports no decreased range of motion. The patient reports no obvious deformity. Onset: The symptoms/episode began/occurred 2 week(s) ago. Modifying factors: the symptoms are alleviated by nothing. The symptoms are aggravated by movement. Associated signs and symptoms: The patient has no apparent associated signs or symptoms. Severity of symptoms: At their worst the symptoms were moderate, in the emergency department the symptoms are unchanged. Treatment prior to arrival includes: over the counter medications, NSAIDS. The patient has not experienced similar symptoms in the past. The patient has not recently seen a physician. Pt reports pain to posterior left shoulder that started 2 weeks ago after lifting a speaker. States the pain radiates to neck and down arm at times. . 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 - Social history:: Smoking status: Patient denies any tobacco usage or history of. ROS: 10:04 Constitutional: Negative for fever, chills, and weight loss. kb 10:04 MS/extremity: Positive for pain, of the posterior aspect of left shoulder. 10:04 All other systems are negative. Exam: 10:03 Constitutional: This is a well developed, well nourished patient who is awake, alert, kb and in no acute distress. Head/Face: Normocephalic, atraumatic. ENT: Moist Mucous membranes Cardiovascular: Regular rate and rhythm with a normal S1 and S2. No gallops, murmurs, or rubs. No pulse deficits. Respiratory: Respirations even and unlabored. No increased work of breathing. Talking in full sentences Skin: Warm, dry with normal turgor. Normal color. Neuro: Awake and alert, GCS 15, oriented to person, place, time, and situation. Moves all extremities. Normal gait. Psych: Awake, alert, with orientation to person, place and time. Behavior, mood, and affect are within normal limits. 10:03 Musculoskeletal/extremity: Extremities: grossly normal except: noted in the posterior aspect of left shoulder: pain, tenderness, ROM: intact in all extremities, Circulation is intact in all extremities. Sensation intact. Vital Signs: 09:44 BP 166 / 81; Pulse 79; Resp 17; Temp 97.6; Pulse Ox 98% ; Weight 102.06 kg; Height 5 vg1 ft. 5 in. (165.10 cm); Pain 10/10; 11:52 Pulse 72; Pulse Ox 100% on R/A; ap3 09:44 Body Mass Index 37.44 (102.06 kg, 165.10 cm) vg1 MDM: 09:50 Patient medically screened. kb 10:03 Data reviewed: vital signs, nurses notes. Data interpreted: Pulse oximetry: on room air kb is 98 %. Interpretation: normal. 11:55 Counseling: I had a detailed discussion with the patient and/or guardian regarding: the kb historical points, exam findings, and any diagnostic results supporting the discharge/admit diagnosis, radiology results, the need for outpatient follow up, a orthopedic surgeon, to return to the emergency department if symptoms worsen or persist or if there are any questions or concerns that arise at home. 03/23 09:48 Order name: Shoulder Left (2 View) XRAY; Complete Time: 11:55 kb Administered Medications: No medications were administered Disposition: 15:43 Co-signature as Attending Physician, Quan Johnson MD I agree with the assessment and matt plan of care. Disposition Summary: 03/23/21 11:56 Discharge Ordered Location: Home kb Condition: Stable kb Diagnosis - Pain in left shoulder kb Followup: kb - With: Emergency Department - When: As needed - Reason: Worsening of condition Followup: kb - With: Private Physician - When: 2 - 3 days - Reason: Recheck today's complaints, Continuance of care, Re-evaluation by your physician Discharge Instructions: - Discharge Summary Sheet kb - Shoulder Pain, [id number] kb Forms: - Medication Reconciliation Form kb - Thank You Letter kb - Antibiotic Education kb - Prescription Opioid Use kb Prescriptions: - Cyclobenzaprine 10 mg Oral Tablet - take 1 tablet by ORAL route every 8 hours As needed; 21 tablet; Refills: 0, kb Product Selection Permitted - Diclofenac Sodium 75 mg Oral tablet,delayed release (DR/EC) - take 1 tablet by ORAL route 2 times per day As needed; 30 tablet; Refills: 0, kb Product Selection Permitted Signatures: Dispatcher [employer] EDSonia Leonard, MANAGER CRITICAL CARE-C MANAGER CRITICAL CARE-Quan Phillips MD MD cha Garcia, [place] RN RN vg1
--- NOTE | 2021-03-23 11:57 | ER ---
Nurse's Notes [facility] Name: Shasta Goncalves Age: 46 yrs Sex: Female : 1975 Arrival Date: 03/23/2021 Time: 09:41 Bed 14 Private MD: Mechelle Burt C Diagnosis: Pain in left shoulder Presentation: 03/23 09:44 Chief complaint: Patient states: a couple of weeks ago was moving a speaker box and vg1 since then has been having Left shoulder pain. Coronavirus screen: Vaccine status: Patient reports being unvaccinated. Client denies travel out of the [place] in the last 14 days. Ebola Screen: Patient negative for fever greater than or equal to 101.5 degrees Fahrenheit, and additional compatible Ebola Virus Disease symptoms. Initial Sepsis Screen: Does the patient meet any 2 criteria? No. Patient's initial sepsis screen is negative. Does the patient have a suspected source of infection? No. Patient's initial sepsis screen is negative. Risk Assessment: Do you want to hurt yourself or someone else? Patient reports no desire to harm self or others. Onset of symptoms was March 09, 2021. 09:44 Method Of Arrival: Ambulatory vg1 09:44 Acuity: HAYDE 4 vg1 Triage Assessment: 09:47 General: Appears uncomfortable, Behavior is calm, cooperative. Pain: Complains of pain vg1 in Left shoulder Pain currently is 10 out of 10 on a pain scale. Derm:. Musculoskeletal: Circulation, motion, and sensation intact. 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 - Social history:: Smoking status: Patient denies any tobacco usage or history of. Screenin:00 Abuse screen: Denies threats or abuse. Nutritional screening: No deficits noted. ap3 Tuberculosis screening: No symptoms or risk factors identified. Fall Risk None identified. Assessment: 09:58 General: Appears in no apparent distress. Behavior is calm, cooperative, appropriate ap3 for age. Pain: Complains of pain in left side of neck, left shoulder, left arm. Pain: Pain currently is 7 out of 10 on a pain scale. Quality of pain is described as aching, crampy, Pain began gradually, patient states pain began "a couple of weeks ago". Neuro: Level of Consciousness is awake, alert, obeys commands, Oriented to person, place, time, situation, Appropriate for age Shipper Receiver are equal bilaterally Moves all extremities. Gait is steady, Speech is normal, Facial symmetry appears normal. Cardiovascular: Patient's skin is warm and dry. Respiratory: Airway is patent Respiratory effort is even, unlabored, Respiratory pattern is regular, symmetrical. Musculoskeletal: Reports pain in left side of posterior neck, left shoulder, left arm. Vital Signs: 09:44 BP 166 / 81; Pulse 79; Resp 17; Temp 97.6; Pulse Ox 98% ; Weight 102.06 kg; Height 5 vg1 ft. 5 in. (165.10 cm); Pain 10/10; 11:52 Pulse 72; Pulse Ox 100% on R/A; ap3 09:44 Body Mass Index 37.44 (102.06 kg, 165.10 cm) vg1 ED Course: 09:41 Patient arrived in ED. am2 09:42 Mechelle Burt FNP is Private Physician. am2 09:42 Sonia Proctor FNP-C is [facility]. kb 09:42 Quan Johnson MD is Attending Physician. kb 09:47 Triage completed. vg1 09:47 Arm band placed on. vg1 09:58 Ev Del Castillo, RN is Primary Nurse. ap3 10:00 Patient has correct armband on for positive identification. Bed in low position. Call ap3 light in reach. Side rails up X 1. Pulse ox on. NIBP on. Door closed. Noise minimized. 11:34 Shoulder Left (2 View) XRAY In Process Unspecified. EDMS 12:34 No provider procedures requiring assistance completed. Patient did not have IV access ap3 during this emergency room visit. Administered Medications: No medications were administered Outcome: 11:56 Discharge ordered by . kb 12:35 Discharged to home ambulatory. ap3 12:35 Condition: good 12:35 Discharge instructions given to patient, Instructed on discharge instructions, follow up and referral plans. medication usage, Demonstrated understanding of instructions, follow-up care, medications, Prescriptions given X 2. 12:35 Patient left the ED. ap3 Signatures: Dispatcher [employer] EDSonia Leonard, JILLIAN LOPEZ-Ev Pozo Amanda, RN RN ap3 Kenya Cochran RN RN vg1
[2021-03-23 13:15] VITALS: BP 166/81; TEMP 97.6
[2021-03-23 13:16] VITALS: O2SAT 100
== END 2021-03-23 12:35 | disposition home or self-care (01) ==
LOC: ER 09:41
DX: M25.512 Pain in left shoulder (principal); I10 Essential (primary) hypertension; E11.9 Type 2 diabetes mellitus without complications
CPT/HCPCS: 99283

== ENCOUNTER → 2023-02-08 | Emergency (ER) | payer OTHER, SELFPAY ==
[~2023-02-08] MED LIST changes: +ACETAMINOPHEN 325 MG TABLET ONE; -FENTANYL CITR 100 MCG/2 ML ONE; -LIDOCAINE 1% MPF 5 ML VIAL ONE; -MIDAZOLAM HCL 2 MG/2 ML INJ ONE; -propofoL 200 MG/20 ML VIAL IV ONE
--- OUTSIDE RECORDS SUMMARY | 2023-02-08 14:38 | XMS REPORT | Continuity of Care Document ---
Author Name Unknown Address [address] [facility] [address] [place] [address] [facility] thconnect Address [address] [facility] 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 Problem Active [facility] Disorder of cardiovasc ular system Circulatio n problem Problem Active [facility] [id number] Charcot foot due to diabetes mellitus Problem Active [facility] [id number] 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 Ordering Clinician Indication Dosage Frequency Signature (SIG) Comments Components Source Lisinopril 30 MG Lisinopril 30 MG 04-10 00:00: 00 No 1{table t} QD Lisinopril 30 MG Bupivicaine Talcott Bupivicaine Talcott 04-10 00:00: 00 No 5mL [facility] Kenalog (Triamcinol one) Kenalog (Triamcinol one) 04-10 00:00: 00 No 1mL [facility] Bupivicaine Talcott Bupivicaine Talcott 04-19 00:00: 00 No 2.5mg [facility] Kenalog (Triamcinol one) Kenalog (Triamcinol one) 3 00:00: 00 No 40mg [facility] Bupivicaine Talcott Bupivicaine Talcott 04-19 00:00: 00 No 2.5mg [facility] Kenalog (Triamcinol one) Kenalog (Triamcinol one) 3- 00:00: 00 No 40mg [facility] Bupivicaine Talcott Bupivicaine Talcott 0 3-08 00:00: 00 No 2.5mg [facility] Kenalog (Triamcinol one) Kenalog (Triamcinol one) 3- 00:00: 00 No 40mg [facility] Bupivicaine Talcott Bupivicaine Talcott 0 3-08 00:00: 00 No [facility] Kenalog (Triamcinol one) Kenalog (Triamcinol one) 2-0 3-08 00:00: 00 No 40mg [facility] Bupivicaine Talcott Bupivicaine Talcott 2-0 3-08 00:00: 00 No [facility] Kenalog (Triamcinol one) Kenalog (Triamcinol one) 2-0 3-08 00:00: 00 No 40mg [facility] Cyclobenzap rine HCl 10 MG Cyclobenzap rine HCl 10 MG 2022-0 2-21 00:00: 00 No 1{table t} Cyclobenza kelley HCl 10 MG Cyclobenzap rine HCl 10 MG Cyclobenzap rine HCl 10 MG 2022-0 2-21 00:00: 00 No 1{table t} Cyclobenza kellye HCl 10 MG Cyclobenzap rine HCl 10 MG Cyclobenzap rine HCl 10 MG 2022-0 2-21 00:00: 00 No 1{table t} Cyclobenza kelley HCl 10 MG Cyclobenzap rine HCl 10 MG Cyclobenzap rine HCl 10 MG 2022-0 2-21 00:00: 00 No 1{table t} Cyclobenza kelley HCl 10 MG Cyclobenzap rine HCl 10 MG Cyclobenzap rine HCl 10 MG 2022-0 2-21 00:00: 00 No 1{table t} Cyclobenza kelley HCl 10 MG Cyclobenzap rine HCl 10 MG Cyclobenzap rine HCl 10 MG 2-0 2-21 00:00: 00 No 1{table t} Cyclobenza kelley HCl 10 MG Cyclobenzap rine HCl 10 MG Cyclobenzap rine HCl 10 MG 2022-0 2-21 00:00: 00 No 1{table t} Cyclobenza kelley HCl 10 MG Cyclobenzap rine HCl 10 MG Cyclobenzap rine HCl 10 MG 2022-0 2-21 00:00: 00 No 1{table t} Cyclobenza kelley HCl 10 MG Zestoretic Zestoretic 2018-1 0-25 00:00: 00 Yes Kelli Newaygo 1 tablet [facility] Zestoretic 20-25 MG Zestoretic 20-25 MG 2018-1 0-25 00:00: 00 No 1{table t} QD Zestoretic 20-25 MG Zestoretic 20-25 MG Zestoretic 20-25 MG 2018-1 0-25 00:00: 00 No 1{table t} QD Zestoretic 20-25 MG Zestoretic 20-25 MG Zestoretic 20-25 MG 2018-1 0-25 00:00: 00 No 1{table t} QD Zestoretic 20-25 MG Zestoretic 20-25 MG Zestoretic 20-25 MG 2018-1 0-25 00:00: 00 No 1{table t} QD Zestoretic 20-25 MG Zestoretic 20-25 MG Zestoretic 20-25 MG 2018-1 0-25 00:00: 00 No 1{table t} QD Zestoretic 20-25 MG Zestoretic 20-25 MG Zestoretic 20-25 MG 2018-1 0-25 00:00: 00 No 1{table t} QD Zestoretic 20-25 MG Zestoretic 20-25 MG Zestoretic 20-25 MG 2018-1 0-25 00:00: 00 No 1{table t} QD Zestoretic 20-25 MG Zestoretic 20-25 MG Zestoretic 20-25 MG 2018-1 0-25 00:00: 00 No 1{table t} QD Zestoretic 20-25 MG Iron 325 (65 Fe) MG Iron 325 (65 Fe) MG 2017- 0-18 00:00: 00 No 1{table t} BID Iron 325 (65 Fe) MG Iron 325 (65 Fe) MG Iron 325 (65 Fe) MG 2017-1 0-18 00:00: 00 No 1{table t} BID Iron 325 (65 Fe) MG Iron 325 (65 Fe) MG Iron 325 (65 Fe) MG 2017-1 0-18 00:00: 00 No 1{table t} BID Iron 325 (65 Fe) MG Iron 325 (65 Fe) MG Iron 325 (65 Fe) MG 2017-1 0-18 00:00: 00 No 1{table t} BID Iron 325 (65 Fe) MG Iron 325 (65 Fe) MG Iron 325 (65 Fe) MG 2017-1 0-18 00:00: 00 No 1{table t} BID Iron 325 (65 Fe) MG Iron 325 (65 Fe) MG Iron 325 (65 Fe) MG 2017-02 00:00: 00 No 1{table t} BID Iron 325 (65 Fe) MG Iron 325 (65 Fe) MG Iron 325 (65 Fe) MG 2017-02 00:00: 00 No 1{table t} BID Iron 325 (65 Fe) MG Iron 325 (65 Fe) MG Iron 325 (65 Fe) MG 2017-02 00:00: 00 No 1{table t} BID Iron 325 (65 Fe) MG Lisinopril 20 MG Lisinopril 20 MG 08-30 00:00: 00 No 1{table t} QD Lisinopril 20 MG metFORMIN HCl 500 MG metFORMIN HCl 500 MG 08-30 00:00: 00 No 1{table t_with_ a_meal} BID metFORMIN HCl 500 MG Toujeo SoloStar 300 UNIT/ML Toujeo SoloStar 300 UNIT/ML 08-30 00:00: 00 No QD Toujeo SoloStar 300 UNIT/ML Lisinopril 20 MG Lisinopril 20 MG 08-30 00:00: 00 No 1{table t} QD Lisinopril 20 MG metFORMIN HCl 500 MG metFORMIN HCl 500 MG 08-30 00:00: 00 No 1{table t_with_ a_meal} BID metFORMIN HCl 500 MG Toujeo SoloStar 300 UNIT/ML Toujeo SoloStar 300 UNIT/ML 08-30 00:00: 00 No QD Toujeo SoloStar 300 UNIT/ML metFORMIN HCl 500 MG metFORMIN HCl 500 MG 08-30 00:00: 00 No 1{table t_with_ a_meal} BID metFORMIN HCl 500 MG Toujeo SoloStar 300 UNIT/ML Toujeo SoloStar 300 UNIT/ML 08-30 00:00: 00 No QD Toujeo SoloStar 300 UNIT/ML Lisinopril 20 MG Lisinopril 20 MG 08-30 00:00: 00 No 1{table t} QD Lisinopril 20 MG metFORMIN HCl 500 MG metFORMIN HCl 500 MG 08-30 00:00: 00 No 1{table t_with_ a_meal} BID metFORMIN HCl 500 MG Toujeo SoloStar 300 UNIT/ML Toujeo SoloStar 300 UNIT/ML 08-30 00:00: 00 No QD Toujeo SoloStar 300 UNIT/ML Lisinopril 20 MG Lisinopril 20 MG 08-30 00:00: 00 No 1{table t} QD Lisinopril 20 MG metFORMIN HCl 500 MG metFORMIN HCl 500 MG 08-30 00:00: 00 No 1{table t_with_ a_meal} BID metFORMIN HCl 500 MG Toujeo SoloStar 300 UNIT/ML Toujeo SoloStar 300 UNIT/ML 08-30 00:00: 00 No QD Toujeo SoloStar 300 UNIT/ML Lisinopril 20 MG Lisinopril 20 MG 08-30 00:00: 00 No 1{table t} QD Lisinopril 20 MG metFORMIN HCl 500 MG metFORMIN HCl 500 MG 08-30 00:00: 00 No 1{table t_with_ a_meal} BID metFORMIN HCl 500 MG Toujeo SoloStar 300 UNIT/ML Toujeo SoloStar 300 UNIT/ML 08-30 00:00: 00 No QD Toujeo SoloStar 300 UNIT/ML Lisinopril 20 MG Lisinopril 20 MG 08-30 00:00: 00 No 1{table t} QD Lisinopril 20 MG metFORMIN HCl 500 MG metFORMIN HCl 500 MG 08-30 00:00: 00 No 1{table t_with_ a_meal} BID metFORMIN HCl 500 MG Toujeo SoloStar 300 UNIT/ML Toujeo SoloStar 300 UNIT/ML 08-30 00:00: 00 No QD Toujeo SoloStar 300 UNIT/ML Lisinopril 20 MG Lisinopril 20 MG 08-30 00:00: 00 No 1{table t} QD Lisinopril 20 MG metFORMIN HCl 500 MG metFORMIN HCl 500 MG 08-30 00:00: 00 No 1{table t_with_ a_meal} BID metFORMIN HCl 500 MG Toujeo SoloStar 300 UNIT/ML Toujeo SoloStar 300 UNIT/ML 2017-0 08-30 00:00: 00 No QD Toujeo SoloStar 300 UNIT/ML Meloxicam 7.5 MG Meloxicam 7.5 MG No 1{table t} QD Meloxicam 7.5 MG Meloxicam 7.5 MG Meloxicam 7.5 MG No 1{table t} QD Meloxicam 7.5 MG Rybelsus Rybelsus No Rybelsus Terbinafine Terbinafine No Te rbinafin e Meloxicam Meloxicam No Meloxicam Tresiba Tresiba No Tresiba Meloxicam 7.5 MG Meloxicam 7.5 MG No 1{table t} QD Meloxicam 7.5 MG Meloxicam 7.5 MG Meloxicam 7.5 MG No 1{table t} QD Meloxicam 7.5 MG Rybelsus Rybelsus No Rybelsus Terbinafine Terbinafine No Te rbinafin e Meloxicam Meloxicam No Meloxicam Tresiba Tresiba No Tresiba Meloxicam 7.5 MG Meloxicam 7.5 MG No 1{table t} QD Meloxicam 7.5 MG Terbinafine Terbinafine No Te rbinafin e Tresiba Tresiba No Tresiba Meloxicam Meloxicam No Meloxicam Atorvastati n Calcium Atorvastati n Calcium No Atorvastat in Calcium Rybelsus 14 MG Rybelsus 14 MG No QD Rybelsus 14 MG Meloxicam 7.5 MG Meloxicam 7.5 MG No 1{table t} QD Meloxicam 7.5 MG Rybelsus Rybelsus No Rybelsus Meloxicam Meloxicam No Meloxicam Terbinafine Terbinafine No Te rbinafin e Tresiba Tresiba No Tresiba Rybelsus Rybelsus No Rybelsus Meloxicam Meloxicam No Meloxicam Terbinafine Terbinafine No Te rbinafin e Tresiba Tresiba No Tresiba Rybelsus Rybelsus No Rybelsus Meloxicam Meloxicam No Meloxicam Terbinafine Terbinafine No Te rbinafin e Tresiba Tresiba No Tresiba Rybelsus Rybelsus No Rybelsus Terbinafine Terbinafine No Te rbinafin e Meloxicam Meloxicam No Meloxicam Tresiba Tresiba No Tresiba Rybelsus Rybelsus No Rybelsus Meloxicam 7.5 MG Meloxicam 7.5 MG No 1{table t} QD Meloxicam 7.5 MG Terbinafine Terbinafine No Te rbinafin e Meloxicam Meloxicam No Meloxicam Tresiba Tresiba No Tresiba Vital Signs Vital Name Observation Time Observation Value Comments S ource height 2022-04-10 09:30:00 65 [in_i] Commo n [facility] weight 2022-04-10 09:30:00 204 [lb_av] Comm on [facility] temperature 2022-04-10 09:30:00 97.5 [degF] Com mon [facility] bmi 2022-04-10 09:30:00 33.94 kg/m2 Comm on [facility] blood pressure systolic 2022-04-10 09:30:00 134 mm[Hg] [facility] blood pressure diastolic 2022-04-10 09:30:00 80 mm[Hg] [facility] height 2021-05-31 09:00:00 65 [in_i] Commo n [facility] weight 2021-05-31 09:00:00 230 [lb_av] Comm on [facility] bmi 2021-05-31 09:00:00 38.27 kg/m2 Comm on [facility] blood pressure systolic 2021-05-31 09:00:00 147 mm[Hg] [facility] blood pressure diastolic 2021-05-31 09:00:00 87 mm[Hg] [facility] height 2021-04-19 15:30:00 65 [in_i] Commo n [facility] weight 2021-04-19 15:30:00 230 [lb_av] Comm on [facility] temperature 2021-04-19 15:30:00 97.0 [degF] Com mon [facility] bmi 2021-04-19 15:30:00 38.27 kg/m2 Comm on [facility] blood pressure systolic 2021-04-19 15:30:00 146 mm[Hg] [facility] blood pressure diastolic 2021-04-19 15:30:00 92 mm[Hg] [facility] height 2021-04-04 10:00:00 65 [in_i] Commo n [facility] weight 2021-04-04 10:00:00 230 [lb_av] Comm on [facility] temperature 2021-04-04 10:00:00 97.7 [degF] Com mon [facility] bmi 2021-04-04 10:00:00 38.27 kg/m2 Comm on [facility] blood pressure systolic 2021-04-04 10:00:00 164 mm[Hg] [facility] blood pressure diastolic 2021-04-04 10:00:00 94 mm[Hg] [facility] Encounters Start Date/Time End Date/Time Encounter Type Admission Type Attending [facility] Care Facility Care Department Encounter ID Source 2022-04-10 11:43:00 Outpatient AlexandreKitty [facility] [id number] [facility] 2022-03-31 09:21:00 [facility] [id number] [facility] 2021-04-18 16:18:01 [facility] [id number] [facility] 2021-03-31 13:55:00 [facility] [id number] [facility] 2021-03-21 10:52:00 Outpatient Kitty Schroeder [facility] [id number] [facility] 2023-01-10 08:27:10 2023-01-10 08:27:10 Outpatient [facility] [id number] Olivier Negron 2023-01-08 16:21:50 2023-01-08 16:21:50 Outpatient [facility] [id number] Olivier Negron 2022-12-18 08:31:52 2022-12-18 08:31:52 Outpatient [facility] [id number] Olivier Negron 2022-10-13 09:12:36 2022-10-13 09:12:36 Outpatient [facility] SFA [id number] Olivier Negron 2022-10-06 15:08:16 2022-10-06 15:08:16 Outpatient [facility] SFA [id number] Olivier Negron 2022-08-23 16:47:46 2022-08-23 16:47:46 Outpatient [facility] SFA [id number] Olivier Negron 2022-08-14 15:02:42 2022-08-14 15:02:42 Outpatient [facility] S[facility] [id number] Olivier Negron 2022-07-05 07:31:05 2022-07-05 07:31:05 Outpatient [facility] SFA [id number] Olivier Negron 2022-07-04 13:39:04 2022-07-04 13:39:04 Outpatient [facility] SFA [id number] Olivier Negron 2022-04-10 00:00:00 2022-04-10 00:00:00 OFFICE VISIT ESTAB PT LEVEL 4 [facility] ST[facility] [id number] [facility] 2021-06-02 00:00:00 2021-06-02 00:00:00 (TEL) STL[facility]C STL[facility]C [id number] [facility] 2021-05-31 00:00:00 2021-05-31 00:00:00 OFFICE VISIT ESTAB PT LEVEL 4 [facility] ST[facility] [id number] [facility] 2021-04-27 00:00:00 2021-04-27 00:00:00 (TEL) STLMLC STL[facility]C [id number] [facility] 2021-04-19 00:00:00 2021-04-19 00:00:00 OFFICE VISIT ESTAB PT LEVEL 4 [facility] [id number] [facility] 2021-04-14 00:00:00 2021-04-14 00:00:00 (TEL) STLMLC ST[facility] [id number] [facility] 2021-04-06 00:00:00 2021-04-06 00:00:00 (TEL) STLMLC ST[facility] [id number] [facility] 2021-04-04 00:00:00 2021-04-04 00:00:00 OFFICE VISIT NEW PT LEVEL 4 [facility] STL[facility] [id number] [facility] 2019-03-20 00:00:00 2019-03-20 00:00:00 Telephone Sallie Mulligan [facility] 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 WORKER INTERIOR SURFACE [facility] MATERNAL & CHILD HEALTH [facility] [id number] 2018-03-08 09:47:00 2018-03-08 09:47:00 Outpatient [facility] [id number] [facility] 2017-11-29 16:00:00 2017-11-29 16:00:00 Outpatient [facility] [id number] [facility] 2017-08-30 14:45:00 2017-08-30 14:45:00 Outpatient [facility] [id number] [facility] Results Test Description Test Time Test Comments Results Result Co mments Source C Spine Ap/Lat C Spine Ap/Lat
--- NOTE | 2023-02-08 15:28 | RAD REPORT ---
EXAM DESCRIPTION: CT - [id number] - 02/08/2023 3:16 pm CLINICAL HISTORY: Trauma, head and neck injury. TRAUMA COMPARISON: No comparisons TECHNIQUE: Axial 5 mm thick images of the head were obtained. Axial 2 mm thick images of the cervical spine were obtained with sagittal and coronal reconstruction images generated and reviewed. All CT scans are performed using dose optimization technique as appropriate and may include automated exposure control or mA/KV adjustment according to patient size. FINDINGS: CT HEAD WITHOUT CONTRAST: No acute hemorrhage, hydrocephalus or extra-axial collection is identified.No areas of brain edema or midline shift. Circumferential thickening in the maxillary sinuses as well some of the ethmoid air cells.The calvari um is intact. CT CERVICAL SPINE WITHOUT CONTRAST: No fracture or subluxation.No prevertebral soft tissues swelling is identified. Mild cervical spondyl osis. Reversal the normal cervical lordosis may be due related to degenerative changes or spasm. IMPRESSION: No acute intracranial or cervical spine findings.
--- NOTE | 2023-02-08 15:30 | RAD REPORT ---
EXAM DESCRIPTION: CT - Spine Lumbar Wo Con - 02/08/2023 3:17 pm CLINICAL HISTORY: Pain;Lower back pain COMPARISON: No comparisons TECHNIQUE: Axial noncontrast CT imaging of the lumbar spine was performed with coronal and sagittal re-formatted images. All CT scans are performed using dose optimization technique as appropriate and may include automated exposure control or mA/KV adjustment according to patient size. FINDINGS: No acute lumbar spine fracture seen. No aggressive marrow pattern or malalignment. Mild di sc height loss at L4-5 and moderate disc height loss L5-S1. Paraspinal tissues are normal in thickness. No paraspinal abscess or hematoma seen. Intervertebral disc disease assessment is inherently limited by CT. Within these limitations, no high -grade canal stenosis suspected. IMPRESSION: No lumbar spine fracture identified.
--- NOTE | 2023-02-08 15:33 | EDPHYS ---
Physician Documentation [facility] Name: Shasta Mccracken Age: 48 yrs Sex: Female : 1975 Arrival Date: 02/08/2023 Time: 14:33 Bed IW1 Private MD: ED Physician Juan Hayes HPI: 02/08 15:01 This 48 yrs old Female presents to ER via Ambulatory with complaints of Fall sb4 Injury, Back Pain, Dizziness. 15:01 Patient states that she was at [employer] testing an exercise bike when the seat broke and sb4 caused her to fall back onto her head and back. She states that she did not lose consciousness, she is not on blood thinners, she has not been vomiting, she does not feel confused. She does feel dizzy and is complaining of pain in her lower back. COOK NIGHT: 16:05 unknown cm10 Historical: - Allergies: 14:58 No Known Allergies; cm10 - PMHx: 14:58 Diabetes - IDDM; Hypercholesterolemia; Hypertension; cm10 - Immunization history:: Adult Immunizations up to date. - Social history:: Smoking status: Patient denies any tobacco usage or history of. ROS: 15:01 Constitutional: Negative for fever, chills, and weight loss, sb4 15:01 Back: Positive for injury or acute deformity, pain at rest, of the lumbar area, 15:01 Neuro: Positive for dizziness, headache, 15:01 All other systems are negative, Exam: 15:01 Constitutional: This is a well developed, well nourished patient who is awake, alert, sb4 and in no acute distress. Head/Face: Normocephalic, atraumatic. Eyes: Extra-ocular motions intact. Periorbital areas with no swelling, redness, or edema. ENT: Mucous membranes moist. Cardiovascular: Regular rate and rhythm with a normal S1 and S2. Respiratory: Lungs have equal breath sounds bilaterally, clear to auscultation and percussion. No rales, rhonchi or wheezes noted. No increased work of breathing, no retractions or nasal flaring. Abdomen/GI: Soft, non-tender, no distension. Skin: Warm, dry with normal turgor. Normal color with no rashes, no lesions, and no evidence of cellulitis. MS/ Extremity: Pulses equal, no cyanosis. Neurovascular intact. Full, normal range of motion. Neuro: Awake and alert, GCS 15, oriented to person, place, time, and situation. Motor strength 5/5 in all extremities. Sensory grossly intact. Vital Signs: 14:56 BP 194 / 87; Pulse 69; Resp 18; Temp 98.3; Pulse Ox 96% on R/A; Weight 102.06 kg (R); cm10 Height 5 ft. 68 in. ; 16:05 BP 202 / 90; cm10 14:56 Body Mass Index 9.66 (102.06 kg, 325.12 cm) cm10 16:05 Provider made aware. Per provider, ok to discharge patient at this time. cm10 MDM: 14:50 Patient medically screened. sb4 15:01 Differential diagnosis: closed head injury, contusion, laceration, sprain, strain, sb4 concussion. 15:32 Data reviewed: vital signs, nurses notes, radiologic studies, and as a result, I will sb4 discharge patient. Care significantly affected by the following chronic conditions: Diabetes, Hypertension. Counseling: I had a detailed discussion with the patient and/or guardian regarding the historical points, exam findings, and any diagnostic results supporting the discharge/admit diagnosis, the presence of at least one elevated blood pressure reading (>120/80) during this emergency department visit, radiology results, to return to the emergency department if symptoms worsen or persist or if there are any questions or concerns that arise at home. 02/08 15:01 Order name: Head C Spine MPR Wo Con CT; Complete Time: 15:30 sb4 02/08 15:01 Order name: CT Lumbar Spine Wo Con; Complete Time: 15:32 sb4 Administered Medications: 16:05 Not Given (Patient Refused): hydrocodone-acetaminophen(7.5 mg-325 mg) 1 tabs PO once cm10 16:05 Drug: Acetaminophen PO 650 mg PO once Route: PO; cm10 16:05 Follow up: Response: Medication administered at discharge. cm10 Disposition Summary: 02/08/23 15:33 Discharge Ordered Notes: Location: Home sb4 Problem: new sb4 Symptoms: have improved sb4 Condition: Stable sb4 Diagnosis - Concussion without loss of consciousness sb4 Followup: sb4 - With: Emergency Department - When: As needed - Reason: Trouble breathing, Worsening of condition Discharge Instructions: - Discharge Summary Sheet sb4 - Concussion, Adult, [id number] sb4 Forms: - Medication Reconciliation Form sb4 - Thank You Letter sb4 - Antibiotic Education sb4 - Prescription Opioid Use sb4 - Patient Portal Instructions sb4 - Leadership Thank You Letter sb4 Addendum: 02/10/2023 21:11 I was immediately available for consultation during this patient's visit. I did not e c2 personally see the patient or guide the patient's care.. Signatures: Dispatcher [employer] [address] De Leon PA-C PA-C sb4 Batool Sorto, RN RN cm10 Juan Hayes MD MD ec2
--- NOTE | 2023-02-08 15:33 | ER ---
Nurse's Notes [facility] Name: Shasta Mccracken Age: 48 yrs Sex: Female : 1975 Arrival Date: 02/08/2023 Time: 14:33 Bed IW1 Private MD: Diagnosis: Concussion without loss of consciousness Presentation: 02/08 14:56 Chief complaint: Patient states: Was [place] [employer] testing out an exercise bike and the cm10 seat fell off and she fell back and landed on her back and hit her head. Pt denies and LOC, no blood thinners. Pt reports dizziness, head pain and lower back pain. Coronavirus screen: Vaccine status: Patient reports being unvaccinated. Client denies travel out of the [place] in the last 14 days. Ebola Screen: Patient denies travel to an Ebola-affected area in the 21 days before illness onset. No symptoms or risks identified at this time. Initial Sepsis Screen: Does the patient meet any 2 criteria? No. Patient's initial sepsis screen is negative. Does the patient have a suspected source of infection? No. Patient's initial sepsis screen is negative. Risk Assessment: Do you want to hurt yourself or someone else? Patient reports no desire to harm self or others. Onset of symptoms was February 08, 2023. 14:56 Method Of Arrival: Ambulatory cm10 14:56 Acuity: HAYDE 4 cm10 Triage Assessment: 16:06 General: Appears in no apparent distress. comfortable, Behavior is calm, cooperative. cm10 Pain: Complains of pain in lumbar area. Neuro: No deficits noted. Level of Consciousness is awake, alert, obeys commands, Oriented to person, place, time, situation, Reports headache. Cardiovascular: No deficits noted. Patient's skin is warm and dry. Respiratory: No deficits noted. Airway is patent Respiratory effort is even, unlabored, Respiratory pattern is regular, symmetrical. GI: No deficits noted. No signs and/or symptoms were reported involving the gastrointestinal system. : No deficits noted. No signs and/or symptoms were reported regarding the genitourinary system. Derm: No deficits noted. No signs and/or symptoms reported regarding the dermatologic system. Skin is intact, Skin is pink, warm \T\ dry. Musculoskeletal: No deficits noted. Range of motion: intact in all extremities. 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 - Social history:: Smoking status: Patient denies any tobacco usage or history of. Screenin:07 [facility] ED Fall Risk Assessment (Adult) History of falling in the last 3 months, cm10 including since admission Yes- single mechanical fall (1 pt) Confusion or Disorientation No (0 pts) Intoxicated or Sedated No (0 pts) Impaired Gait No (0 pts) Mobility Assist Device Used No (0 pt) Altered Elimination No (0 pt) Score/Fall Risk Level 0 - 2 = Low Risk Oriented to surroundings, Maintained a safe environment, Hourly rounding (assess needs \T\ fall precautionary measures) done. Abuse screen: Denies threats or abuse. Denies injuries from another. Nutritional screening: No deficits noted. Tuberculosis screening: No symptoms or risk factors identified. Vital Signs: 14:56 BP 194 / 87; Pulse 69; Resp 18; Temp 98.3; Pulse Ox 96% on R/A; Weight 102.06 kg (R); cm10 Height 5 ft. 68 in. ; 16:05 BP 202 / 90; cm10 14:56 Body Mass Index 9.66 (102.06 kg, 325.12 cm) cm10 16:05 Provider made aware. Per provider, ok to discharge patient at this time. cm10 ED Course: 14:37 Patient arrived in ED. mg5 14:44 [address] Landon PA-C is PHCP. sb4 14:44 Juan Hayes MD is Attending Physician. sb4 14:58 Triage completed. cm10 14:58 Arm band placed on Patient placed in waiting room. cm10 15:17 Head C Spine MPR Wo Con CT In Process Unspecified. EDMS 15:17 CT Lumbar Spine Wo Con In Process Unspecified. EDMS 16:07 Patient has correct armband on for positive identification. Provided Education on: ER cm10 process and procedures.. 16:07 No provider procedures requiring assistance completed. Patient did not have IV access cm10 during this emergency room visit. Administered Medications: 16:05 Not Given (Patient Refused): hydrocodone-acetaminophen(7.5 mg-325 mg) 1 tabs PO once cm10 16:05 Drug: Acetaminophen PO 650 mg PO once Route: PO; cm10 16:05 Follow up: Response: Medication administered at discharge. cm10 Medication: 16:07 VIS not applicable for this client. cm10 Outcome: 15:33 Discharge ordered by . [email or web address] 16:08 Discharged to home ambulatory, cm10 16:08 Condition: good 16:08 Discharge instructions given to patient, Instructed on discharge instructions, follow up and referral plans. Demonstrated understanding of instructions, follow-up care, 16:08 Patient left the ED. cm10 Signatures: Dispatcher [employer] EDCourt Castellanos PA-C PA-C sb4 Batool Sorto RN RN cm10 Cristal Licona mg5
[2023-02-08 17:06] VITALS: TEMP 98.3; O2SAT 96
[2023-02-08 17:12] VITALS: BP 202/90
== END ==
LOC: ER 14:33
DX: S06.0X0A Concussion without loss of consciousness, initial encounter (principal)
CPT/HCPCS: 70450; 72125; 72131; 99283

== ENCOUNTER 2023-11-27 10:53 | Emergency (ER) | payer OTHER ==
--- OUTSIDE RECORDS SUMMARY | 2023-11-27 10:58 | XMS REPORT | Continuity of Care Document ---
Author Name Unknown Address [address] [facility] [address] [place] [address] [facility] thconnect Address [address] [facility] [address] [place] [address] Care Team Providers Care Expense Analyst Name Role Phone JUSTIN LANGSTON Primary Care Physician Unav BLANCA Alas Attending Clinician Unavailable Kitty Schroeder Attending Clinician Unavailable DEMETRIO LUTZ Attending Clinician Unavailable DEMETRIO LUTZ Attending Clinician Unavailable 2, [facility] Attending Clinician Unavailable Demetrio Lutz MD Attending Clinician BRENDAN GARCIA Attending Clinician UnavailBRENDAN Funes Attending Clinician Blanca Watson MD Attending Clinician [phone] Charly Magallanes MD Attending Clinician Doctor Unassigned, [place] Attending Clinician U Jeanette Barlow MD Attending Clinician AMITA NATHAN Attending Clinician UnavailAmita Lee Attending Clinician MICHEL CARBALLO Attending Clinician Unavailable CHARLY MAGALLANES Attending Clinician UnavailSTEPHEN Lopez Attending Clinician Unavailable Michel Carballo MD Attending Clinician Miguel Angel Bear MD Attending Clinician Unavaila MIGUEL ANGEL Fitzgerald Attending Clinician Unavailable 2, [facility] Attending Clinician Unavailable JEANETTE LEDESMA Attending Clinician Unavailable STEPHEN SALGADO Attending Clinician Unavailable RODRIGO EAST Attending Clinician Unavailab Claudette Sepulveda Attending Clinician + CLAUDETTE MULLIGAN Attending Clinician Unavail able BLANCA WARE Admitting Clinician Unavailable DEMETRIO LUTZ Admitting Clinician Unavailable Blanca Ware MD Admitting Clinician BRENDAN GARCIA Admitting Clinician UnavailDEMETRIO Hawk Admitting Clinician Unavailable Payers Payer Name Policy Type Policy Number Effective Date Expirati on Date Source [facility] DUAL COMP HMO D SNP [id number] 2022 00:00:00 [place] [id number] 2022 00:00:00 [facility] PLUS [id number] 2020 00:00:00 2022 00:00:00 [place] [facility] [id number] 2020 00:00:00 [facility] [id number] 2020 00:00:00 [facility] [place] [facility] [id number] 2018 00:00:00 2019 00:00:00 Problems Condition Name Condition Details Condition Category Status Onset Date Resolution Date Last Treatment Date Treating Clinician Comments Source Colon adenomas Colon adenomas Disease Active 07-18 00:00: 00 [facility] Constipati on, unspecifie d constipati on type Constipati on, unspecifie d constipati on type Disease Active 08-31 00:00: 00 [facility] Encounter for well woman exam with routine gynecologi maite exam Encounter for well woman exam with routine gynecologi maite exam Disease Active 03-11 00:00: 00 [facility] Abnormal uterine bleeding Abnormal uterine bleeding Disease Active 03-11 00:00: 00 [facility] Essential hypertensi on Essential hypertensi on Disease Active 03-11 00:00: 00 [facility] Hypertensi on Hypertensi on Problem Active [facility] [id number] Iron deficiency anemia secondary to inadequate dietary iron intake Problem Active [facility] [id number] Uncontroll ed type 2 diabetes mellitus with hyperglyce javier Problem Active [facility] Disorder of cardiovasc ular system Circulatio n problem Problem Active [facility] [id number] Charcot foot due to diabetes mellitus Problem Active [facility] [id number] 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 Problem Active [facility] Encounter for screening colonoscop y Encounter for screening colonoscop y Disease Resolve d 4-18 00:00: 00 2023-07-27 00:00:00 2023-07-27 08:32:33 [facility] Class 2 obesity with body mass index (BMI) of 38.0 to 38.9 in adult, unspecifie d obesity type, unspecifie d whether serious comorbidit y present Class 2 obesity with body mass index (BMI) of 38.0 to 38.9 in adult, unspecifie d obesity type, unspecifie d whether serious comorbidit y present Disease Resolve d 03-11 00:00: 00 2022-07-18 00:00:00 2022-07-18 10:06:00 [facility] BMI 38.0-38.9, adult BMI 38.0-38.9, adult Disease Resolve d 2018-02 008 00:00: 00 2022-07-18 00:00:00 2022-07-18 10:06:00 [facility] Dysuria Dysuria Disease Resolve d 03-11 00:00: 00 2020-07-08 00:00:00 2020-07-08 12:54:49 [facility] Cervical Papanicola ou smear negative within last 12 months Cervical Papanicola ou smear negative within last 12 months Disease Resolve d 2018-02 0-11 00:00: 00 2020-07-08 00:00:00 2020-07-08 12:54:58 [facility] Encounter for contracept luis management , unspecifie d type Encounter for contracept luis management , unspecifie d type Disease Resolve d 2018-02 0-08 00:00: 00 2020-07-08 00:00:00 2020-07-08 12:54:28 [facility] UTI symptoms UTI symptoms Disease Resolve d 5-10 00:00: 00 2020-07-08 00:00:00 2020-07-08 12:54:39 [facility] Allergies, Adverse Reactions, Alerts Allergy Name Allergy Type Status Severity Reaction(s) Onset Date Inactive Date Treating Clinician Comments Source NO KNOWN ALLERGIE S Drug Class Active [facility] Social History Social Habit Start Date Stop Date Quantity Comments Source Sex Assigned At [facility] Gender identity [facility] Sexual orientation [facility] History of tobacco use Cigarette Smoker [facility] Alcoholic beverage intake 2023-09-28 00:00:00 2023-09-28 00:00:00 .14 /d [facility] Tobacco use and exposure 2023-07-27 00:00:00 2023-07-27 00:00:00 Smokeless tobacco non-user [facility] Alcohol intake 2023-05-31 00:00:00 2023-05-31 00:00:00 .14 /d [facility] History of Social function 2022-07-18 00:00:00 2022-07-18 00:00:00 [facility] Exposure to SARS-CoV-2 (event) 2022-07-06 00:00:00 2022-07-16 09:22:00 Not sure [facility] Cigarettes smoked current (pack per day) - Reported 2020-07-08 00:00:00 2020-07-08 00:00:00 [facility] Smoking Status Start Date Stop Date Source Ex-smoker 2023-07-27 00:00:00 2023-07-27 00:00:00 [facility] Medications Ordered Medication Name Filled Medication Name Start Date Stop Date Current Medication? Ordering Clinician Indication Dosage Frequency Signature (SIG) Comments Components Source medroxyPROG ESTERone (PROVERA) 10 mg tablet 09-27 00:00: 00 Yes [id number] 100 10mg Take 1 tablet by mouth in the morning. [facility] ibuprofen (IBU) tablet 600 mg 09-18 19:15: 00 09-18 18:26 :00 No [id number] 100 600mg 600 mg, Oral, ONCE, 1 dose, On Sun09/19/23 at 1415, Routine [facility] miSOPROStoL 200 mcg tablet 07-26 00:00: 00 09-18 00:00 :00 No [id number] 100 200ug Take 1 tablet by mouth SEE-INSTRU CTIONS. Take one tab the night before and one tab the morning of procedure [facility] Nitrofurant oin&Nit. Macrocryst (MACROBID) 100 mg capsule 07-26 00:00: 00 08-01 04:59 :00 No [id number] 100mg Take 1 capsule by mouth in the morning and 1 capsule in the evening. Do all this for 5 days. [facility] water for irrigation irrigation solution 06-26 14:08: 06-26 14:49 :36 No PRN, Starting on Sun06/27/23 at 0908, Until Sun06/27/23 at 0949, Routine, Intra-op [facility] simethicone (GAS RELIEF (SIMETHICON E)) 40 mg/0.6 mL drops 06-26 14:08: 00 06-26 14:49 :36 No PRN, Starting on Sun06/27/23 at 0908, Until Sun06/27/23 at 0949, Routine, Intra-op [facility] lactated ringers IV infusion 1,000 mL 06-26 13:30: 00 06-26 13:48 :00 No 1000mL at 42 mL/hr, 1,000 mL, IV Infusion, ONCE, 1 dose, On Sun06/27/23 at 0830, Routine, DSU Pre-op [facility] polyethylen e glycol 3350 (MIRALAX) 17 gram powder 18 00:00: 00 Yes 1{packe t} Take 1 Packet by mouth in the morning. [facility] peg-electro lyte soln 236-22.74-6 .74 -5.86 gram solution 18 00:00: 00 06-02 04:59 :00 No 4000mL Take 4,000 mL by mouth in the morning for 2 days. [facility] MOUNJARO 10 mg/0.5 mL subcutaneou s injection 05-06 00:00: 00 Yes 10mg inject 10 mg under the skin weekly. On Fridays [facility] cetirizine 10 mg tablet 05 00:00: 00 06-26 00:00 :00 No 10mg Take 1 tablet by mouth every morning. [facility] polyethylen e glycol 3350 17 gram/dose powder 09-11 00:00: 00 09-13 04:59 :00 No 238g Take 238 g by mouth in the morning for 1 dose. [facility] polyethylen e glycol 3350 (MIRALAX) 17 gram/dose powder 09-01 00:00: 00 09-04 04:59 :00 No 238g Take 238 g by mouth in the morning for 2 days. [facility] lisinopriL 30 mg tablet 07-18 00:00: 00 Yes 30mg Take 1 tablet by mouth every morning. [facility] rosuvastati n 10 mg tablet 07-18 00:00: 00 Yes 10mg Take 1 tablet by mouth every morning. [facility] triamcinolo ne acetonide 0.1 % cream 07-18 00:00: 00 05-30 00:00 :00 No [id number] Apply to area(s) 2 (two) times daily. [facility] mupirocin 2 % ointment 07-18 00:00: 00 05-30 00:00 :00 No [id number] Apply to area(s) 3 (three) times daily. [facility] Lisinopril 30 MG Lisinopril 30 MG 04-10 00:00: 00 No 1{table t} QD Lisinopril 30 MG Bupivicaine [place] Bupivicaine [place] 04-10 00:00: 00 No 5mL [facility] Kenalog (Triamcinol one) Kenalog (Triamcinol one) 04-10 00:00: 00 No 1mL [facility] insulin degludec 200 unit/mL (3 mL) InPn 2021-02 10:30: 57 01-31 00:00 :00 No 35U inject 35 Units under the skin daily. [facility] semaglutide (RYBELSUS) 14 mg Tab 2021-02 00:00: 00 06-26 00:00 :00 No [id number] 14mg Take 14 mg by mouth daily. [facility] fluconazole 150 mg tablet 2021-02 00:00: 00 05-30 00:00 :00 No [id number] 150mg Take 1 tablet by mouth every 10 (ten) days. [facility] rosuvastati n 20 mg tablet 2021-02 00:00: 00 10-04 00:00 :00 No [id number] 20mg Take 1 tablet by mouth at bedtime. [facility] lisinopriL 40 mg tablet 2021-02 00:00: 00 10-04 00:00 :00 No [id number] 40mg Take 1 tablet by mouth in the morning. [facility] traZODone 100 mg tablet 2022-1 2-13 00:00: 00 08-31 00:00 :00 No TAKE 1/2 TO 1 TABLET BY MOUTH AT BEDTIME [facility] FARXIGA 10 mg tablet 2021-02 1-22 00:00: 00 01-31 00:00 :00 No [facility] rosuvastati n 20 mg tablet -23 00:00: 00 01-31 00:00 :00 No [id number] 20mg Take 1 tablet by mouth at bedtime. [facility] semaglutide (RYBELSUS) 14 mg Tab - 00:00: 00 01-31 00:00 :00 No [id number] 14mg Take 14 mg by mouth daily. [facility] lisinopriL 40 mg tablet 4-15 00:00: 00 01-31 00:00 :00 No [facility] insulin degludec 200 unit/mL (3 mL) InPn 4-11 10:22: 44 Yes 35U inject 35 Units under the skin daily. [facility] meloxicam 7.5 mg tablet 3-16 00:00: 00 05-30 00:00 :00 No 7.5mg Take 1 tablet by mouth in the morning. [facility] Bupivicaine [place] Bupivicaine [place] 3-08 00:00: 00 No 2.5mg [facility] Kenalog (Triamcinol one) Kenalog (Triamcinol one) 3-08 00:00: 00 No 40mg [facility] Bupivicaine [place] Bupivicaine [place] 3-08 00:00: 00 No 2.5mg [facility] Kenalog (Triamcinol one) Kenalog (Triamcinol one) 3-08 00:00: 00 No 40mg [facility] Cyclobenzap rine HCl 10 MG Cyclobenzap rine HCl 10 MG 2-21 00:00: 00 No 1{table t} Cyclobenza kelley HCl 10 MG Cyclobenzap rine HCl 10 MG Cyclobenzap rine HCl 10 MG 2-21 00:00: 00 No 1{table t} Cyclobenza kelley HCl 10 MG Cyclobenzap rine HCl 10 MG Cyclobenzap rine HCl 10 MG 2-21 00:00: 00 No 1{table t} Cyclobenza kelley HCl 10 MG ONETOUCH ULTRA TEST strip 1- 00:00: 00 Yes [facility] ONETOUCH ULTRA TEST strip - 00:00: 00 Yes [facility] ONETOUCH DELICA PLUS LANCET 33 gauge [facility] 1- 00:00: 00 Yes [facility] terbinafine HCL 250 mg tablet 1-05 00:00: 00 01-31 00:00 :00 No [facility] latanoprost 0.005 % ophthalmic drops 1-03 00:00: 00 01-31 00:00 :00 No INSTILL 1 DROP INTO EACH EYE EVERY DAY AT BEDTIME [facility] BD STEWART 2ND GEN PEN NEEDLE 32 gauge x 5/32" Ndle 2020-02 2 00:00: 00 08-31 00:00 :00 No USE EVERY DAY DIRECTED [facility] sulfamethox azole-trime thoprim 800-160 mg per tablet 2020-02 2- 00:00: 00 01-31 00:00 :00 No TAKE 1 TABLET BY MOUTH EVERY 12 HOURS FOR 7 DAYS [facility] ONETOUCH ULTRA2 METER [facility] - 00:00: 00 Yes [id number] USE TO TEST BLOOD SUGAR TWICE DAILY [facility] Zestoretic Zestoretic 2017- 0-25 00:00: 00 Yes Kelli Schroeder 1 tablet Comm on [facility] Zestoretic 20-25 MG Zestoretic 20-25 MG 2017- 0-25 00:00: 00 No 1{table t} QD Zestoretic 20-25 MG Zestoretic 20-25 MG Zestoretic 20-25 MG 2018- 0-25 00:00: 00 No 1{table t} QD Zestoretic 20-25 MG Zestoretic 20-25 MG Zestoretic 20-25 MG 2017- 0-25 00:00: 00 No 1{table t} QD Zestoretic 20-25 MG Iron 325 (65 Fe) MG Iron 325 (65 Fe) MG 2017-02 018 00:00: 00 No 1{table t} BID Iron 325 (65 Fe) MG Iron 325 (65 Fe) MG Iron 325 (65 Fe) MG 2017-02 018 00:00: 00 No 1{table t} BID Iron 325 (65 Fe) MG Iron 325 (65 Fe) MG Iron 325 (65 Fe) MG 2017-02 018 00:00: 00 No 1{table t} BID Iron 325 (65 Fe) MG metFORMIN HCl 500 MG metFORMIN HCl [...] 300 UNIT/ML 08-30 00:00: 00 No QD Junaid Diasar 300 UNIT/ML Meloxicam 7.5 MG Meloxicam 7.5 MG No 1{table t} QD Meloxicam 7.5 MG Rybelsus Rybelsus No Rybelsus Meloxicam 7.5 MG Meloxicam 7.5 MG No 1{table t} QD Meloxicam 7.5 MG Terbinafine Terbinafine No Te rbinafin e Rybelsus Rybelsus No Rybelsus Vital Signs Vital Name Observation Time Observation Value Comments S ource Systolic blood pressure 2023-09-28 13:24:00 150 mm[Hg] [facility] Diastolic blood pressure 2023-09-28 13:24:00 74 mm[Hg] [facility] Heart rate 2023-09-28 13:20:00 70 /min [facility] Respiratory rate 2023-09-28 13:20:00 18 /min [facility] Body height 2023-09-28 13:20:00 167.6 cm [facility] Body weight 2023-09-28 13:20:00 89.359 kg [facility] BMI 2023-09-28 13:20:00 31.80 kg/m2 [facility] Systolic blood pressure 2023-09-19 18:04:00 176 mm[Hg] [facility] Diastolic blood pressure 2023-09-19 18:04:00 93 mm[Hg] [facility] Heart rate 2023-09-19 18:04:00 82 /min [facility] Body temperature 2023-09-19 18:04:00 36.44 Katy [facility] Respiratory rate 2023-09-19 18:04:00 16 /min [facility] Body height 2023-09-19 18:04:00 167.6 cm [facility] Body weight 2023-09-19 18:04:00 89.449 kg [facility] BMI 2023-09-19 18:04:00 31.83 kg/m2 [facility] Oxygen saturation in Arterial blood by Pulse oximetry 2023-09-19 18:04:00 99 /min [facility] Systolic blood pressure 2023-07-27 13:25:00 163 mm[Hg] [facility] Diastolic blood pressure 2023-07-27 13:25:00 91 mm[Hg] [facility] Heart rate 2023-07-27 13:19:00 74 /min [facility] Body temperature 2023-07-27 13:19:00 36.44 Katy [facility] Respiratory rate 2023-07-27 13:19:00 15 /min [facility] Body height 2023-07-27 13:19:00 167.6 cm [facility] Body weight 2023-07-27 13:19:00 91.082 kg [facility] BMI 2023-07-27 13:19:00 32.41 kg/m2 [facility] Systolic blood pressure 2023-07-19 14:25:00 171 mm[Hg] [facility] Diastolic blood pressure 2023-07-19 14:25:00 86 mm[Hg] [facility] Heart rate 2023-07-19 14:25:00 76 /min [facility] Body temperature 2023-07-19 14:23:00 36.56 Katy [facility] Respiratory rate 2023-07-19 14:23:00 20 /min [facility] Body height 2023-07-19 14:23:00 167.6 cm [facility] Body weight 2023-07-19 14:23:00 91.627 kg [facility] BMI 2023-07-19 14:23:00 32.60 kg/m2 [facility] Oxygen saturation in Arterial blood by Pulse oximetry 2023-07-19 14:23:00 100 /min [facility] Heart rate 2023-06-27 15:17:00 75 /min [facility] Respiratory rate 2023-06-27 15:17:00 12 /min [facility] Oxygen saturation in Arterial blood by Pulse oximetry 2023-06-27 15:17:00 100 /min [facility] Systolic blood pressure 2023-06-27 15:16:00 189 mm[Hg] [facility] Diastolic blood pressure 2023-06-27 15:16:00 87 mm[Hg] [facility] Body temperature 2023-06-27 14:49:00 36.28 Katy [facility] Body height 2023-06-19 16:00:00 167.6 cm [facility] Body weight 2023-06-19 16:00:00 95.255 kg [facility] BMI 2023-06-19 16:00:00 33.89 kg/m2 [facility] Heart rate 2023-06-27 14:53:00 71 /min [facility] Respiratory rate 2023-06-27 14:53:00 15 /min [facility] Oxygen saturation in Arterial blood by Pulse oximetry 2023-06-27 14:53:00 99 /min [facility] Systolic blood pressure 2023-06-27 14:49:00 171 mm[Hg] [facility] Diastolic blood pressure 2023-06-27 14:49:00 86 mm[Hg] [facility] Body temperature 2023-06-27 14:49:00 36.28 Katy [facility] Body height 2023-06-19 16:00:00 167.6 cm [facility] Body weight 2023-06-19 16:00:00 95.255 kg [facility] BMI 2023-06-19 16:00:00 33.89 kg/m2 [facility] Systolic blood pressure 2023-05-31 13:44:00 147 mm[Hg] [facility] Diastolic blood pressure 2023-05-31 13:44:00 72 mm[Hg] [facility] Heart rate 2023-05-31 13:44:00 71 /min [facility] Body temperature 2023-05-31 13:44:00 36.11 Katy [facility] Respiratory rate 2023-05-31 13:44:00 18 /min [facility] Body height 2023-05-31 13:44:00 167.6 cm [facility] Body weight 2023-05-31 13:44:00 97.523 kg [facility] BMI 2023-05-31 13:44:00 34.70 kg/m2 [facility] Oxygen saturation in Arterial blood by Pulse oximetry 2023-05-31 13:44:00 100 /min [facility] Systolic blood pressure 2022-08-31 20:41:00 158 mm[Hg] [facility] Diastolic blood pressure 2022-08-31 20:41:00 79 mm[Hg] [facility] Heart rate 2022-08-31 20:41:00 79 /min [facility] 2022-08-31 20:41:00 167.6 cm [facility] Body weight 2022-08-31 20:41:00 96.888 kg [facility] BMI 2022-08-31 20:41:00 34.48 kg/m2 [facility] Oxygen saturation in Arterial blood by Pulse oximetry 2022-08-31 20:41:00 97 /min [facility] Body temperature 2022-07-20 18:53:00 36.28 Katy [facility] Body height 2022-07-20 18:53:00 167.6 cm [facility] Body weight 2022-07-20 18:53:00 92.897 kg [facility] BMI 2022-07-20 18:53:00 33.06 kg/m2 [facility] Systolic blood pressure 2022-07-18 14:40:00 146 mm[Hg] [facility] Diastolic blood pressure 2022-07-18 14:40:00 82 mm[Hg] [facility] Heart rate 2022-07-18 14:38:00 78 /min [facility] Res[facility] rate 2022-07-18 14:38:00 18 /min [facility] Body height 2022-07-18 14:38:00 167.6 [facility] weight 2022-07-18 14:38:00 92.987 kg [facility] BMI 2022-07-18 14:38:00 33.09 kg/m2 [facility] height 2022-04-10 09:30:00 65 [in_i] Commo n [facility] weight 2022-04-10 09:30:00 204 [lb_av] Comm on [facility] temperature 2022-04-10 09:30:00 97.5 [degF] Com mon [facility] bmi 2022-04-10 09:30:00 33.94 kg/m2 Comm on [facility] blood pressure systolic 2022-04-10 09:30:00 134 mm[Hg] [facility] blood pressure diastolic 2022-04-10 09:30:00 80 mm[Hg] [facility] Systolic blood pressure 2022-01-31 16:07:00 142 mm[Hg] [facility] Diastolic blood pressure 2022-01-31 16:07:00 78 mm[Hg] [facility] Heart rate 2022-01-31 16:07:00 81 /min [facility] Body height 2022-01-31 16:07:00 167.6 cm [facility] Body weight 2022-01-31 16:07:00 94.348 kg [facility] BMI 2022-01-31 16:07:00 33.57 kg/m2 [facility] Oxygen saturation in Arterial blood by Pulse oximetry 2022-01-31 16:07:00 99 /min [facility] height 2021-05-31 09:00:00 65 [in_i] Commo n [facility] weight 2021-05-31 09:00:00 230 [lb_av] Comm on [facility] bmi 2021-05-31 09:00:00 38.27 kg/m2 Comm on [facility] blood pressure systolic 2021-05-31 09:00:00 147 mm[Hg] [facility] blood pressure diastolic 2021-05-31 09:00:00 87 mm[Hg] [facility] temperature 2021-04-19 15:30:00 97.0 [degF] Com mon [facility] bmi 2021-04-19 15:30:00 38.27 kg/m2 Comm on [facility] blood pressure systolic 2021-04-19 15:30:00 146 mm[Hg] Common [facility] blood pressure diastolic 2021-04-19 15:30:00 92 mm[Hg] [facility] [facility] height 2021-04-19 15:30:00 65 [in_i] Commo n [facility] weight 2021-04-19 15:30:00 230 [lb_av] Comm on [facility] height 2021-04-04 10:00:00 65 [in_i] Commo n [facility] weight 2021-04-04 10:00:00 230 [lb_av] Comm on [facility] temperature 2021-04-04 10:00:00 97.7 [degF] Com mon [facility] bmi 2021-04-04 10:00:00 38.27 kg/m2 Comm on [facility] blood pressure systolic 2021-04-04 10:00:00 164 mm[Hg] [facility] blood pressure diastolic 2021-04-04 10:00:00 94 mm[Hg] [facility] Procedures Procedure Date / Time Performed Performing Clinician Source POCT TEST 2023-09-19 00:00:00 Demetrio Lutz [facility] POCT URINALYSIS W/O SPECIFIC GRAVITY 2023-07-27 00:00:00 Demetrio Lutz [facility] COLONOSCOPY (ENDO) 2023-06-27 15:00:35 Martha Langston [facility] COLONOSCOPY (ENDO) 2023-06-27 15:00:35 Martha Langston [facility] POCT GLUCOSE (AUTOMATED) 2023-06-27 13:47:00 Andrew Ware [facility] POCT GLUCOSE (AUTOMATED) 2023-06-27 13:47:00 Andrew Ware [facility] POCT TEST 2023-06-27 13:44:00 Umang Mccloud [facility] POCT TEST 2023-06-27 13:44:00 Umang Mccloud [facility] [id number] - NE COLONOSCOPY FLX DX W/COLLJ SPEC WHEN PFRMD 2023-06-27 13:42:00 Blanca Ware [facility] DISCLOSURE AND CONSENT, MEDICAL AND SURGICAL PROCEDURES 2022-09-13 05:01:00 Doctor Unassigned, [place] [facility] XR ANKLE 3+ VW LEFT 2022-07-20 18:38:59 Panchbhavi, Vi nod [facility] XR FOOT 3+ VW LEFT 2022-07-20 18:38:59 Panchbhavi, Suhas od [facility] INSURANCE CORRESPONDENCE 2022-05-29 05:01:00 Doc tor Unassigned, [place] [facility] POCT HEMOGLOBIN A1C TEST 2022-01-31 16:10:00 Evette Carballo [facility] NOTICE OF BILLING PRACTICES FOR MEDICARE PATIENTS 2022-01-31 15:56:14 Doctor Unassigned, [place] [facility] EXTERNAL PROVIDER RECORDS 2021-08-24 05:01:00 Do ctor Unassigned, [place] [facility] Encounters Start Date/Time End Date/Time Encounter Type Admission Type Attending Clinicians Care Facility Care Department Encounter ID Source 2022-09-08 16:40:06 Outpatient BLANCA WEI [facility] ДМИТРИЙ [id number] [facility] 2022-04-10 11:43:00 Outpatient Kitty Schroeder [facility] [id number] [facility] 2022-03-31 09:21:00 Outpatient Kitty Schroeder [facility] [id number] [facility] 2021-04-18 16:18:01 Outpatient Kitty Schroeder [facility] [id number] [facility] 2021-03-31 13:55:00 [facility] [id number] 2021-03-21 10:52:00 Outpatient [facility] [id number] [facility] 2023-11-07 09:30:00 2023-11-07 09:30:00 Outpatient R NELDA DEMETRIO [facility] [id number] [facility] 2023-09-28 09:00:00 2023-09-28 09:00:00 Body Hanger Visit 2, Adc Lab Demetrio Lutz 2, Adc Lab [facility] 1.2.840.114 350.1.13.10 4.2.7.2.686 [id number] [facility] 2023-09-28 08:00:00 2023-09-28 08:45:05 Outpatient R LUTZ DEMETRIO [facility] [id number] [facility] 2023-09-28 08:00:00 2023-09-28 08:45:05 Office Visit Demetrio Lutz [facility] 1.2.840.114 350.1.13.10 4.2.7.2.686 [id number] [facility] 2023-09-19 13:00:00 2023-09-19 13:23:38 Outpatient R LUTZ DEMETRIO [facility] [id number] [facility] 2023-09-19 13:00:00 2023-09-19 13:23:38 Office Visit Nelda Demetrio Amezcua [facility] 1.2.840.114 350.1.13.10 4.2.7.2.686 [id number] [facility] 2023-09-12 13:00:00 2023-09-12 13:00:00 Outpatient R DEMETRIO LUTZ VIEN [facility] [id number] [facility] 2023-08-17 13:26:35 2023-08-17 23:59:00 Outpatient R DEMETRIO LUTZ [facility] [id number] [facility] 2023-08-17 13:20:00 2023-08-17 23:59:00 Hospital Encounter Demetrio Lutz [facility] 1.2.840.114 350.1.13.10 4.2.7.2.686 [id number] [facility] 2023-08-13 09:45:00 2023-08-13 09:45:00 Outpatient R DEMETRIO LUTZ [facility] [id number] [facility] 2023-08-10 00:00:00 2023-08-10 00:00:00 Outpatient R DEMETRIO LUTZ [facility] [id number] [facility] 2023-07-27 08:00:00 2023-07-27 08:56:33 Outpatient R DEMETROI LUTZ [facility] [id number] [facility] 2023-07-27 08:00:00 2023-07-27 08:56:33 Office Visit Demetrio Lutz [facility] 1.2840.114 350.1.13.10 4.2.7.2.686 [id number] [facility] [id number] [facility] 2023-07-23 09:00:00 2023-07-23 09:00:00 Outpatient R BRENDAN GARCIA CHERYAL [facility] [id number] [facility] 2023-07-19 09:45:00 2023-07-19 09:45:00 Office Visit Blanca Ware [facility] 1.2.840.114 350.1.13.10 4.2.7.2.686 [id number] [facility] [id number] [facility] 2023-07-19 09:45:00 2023-07-19 09:39:18 Outpatient R BLANCA WARE [facility] [id number] [facility] 2023-07-12 16:45:00 2023-07-12 16:45:00 Outpatient R BLANCA WARE [facility] [id number] [facility] 2023-06-27 08:25:00 2023-06-27 10:31:00 Outpatient R BLANCA WARE [facility] ДМИТРИЙ [id number] [facility] 2023-06-27 08:25:00 2023-06-27 10:31:00 Hospital Encounter Jeanie Blanca [facility] 1.2840.114 350.1.13.10 4.2.7.2.686 [id number] [facility] 2023-06-27 08:50:00 2023-06-27 09:53:00 Surgery Jeanie [facility] 1.2840.114 350.1.13.10 4.2.7.2.686 [id number] [facility] 2023-06-12 08:30:01 2023-06-12 08:30:01 Outpatient [facility] [id number] Olivier Negron 2023-05-31 08:30:00 2023-05-31 09:29:01 Outpatient R BLANCA WARE [facility] [id number] [facility] 2023-05-31 08:30:00 2023-05-31 09:29:01 Office Visit Blanca Ware [facility] 1.840.114 350.1.13.10 4.2.7.2.686 [id number] [facility] 2023-05-21 00:00:00 2023-05-21 00:00:00 Telephone Jeanie [facility] 1.2840.114 350.1.13.10 4.2.7.2.686 [id number] [facility] 2023-05-07 08:14:14 2023-05-07 08:14:14 Outpatient [facility] [id number] Olivier Negron 2023-04-17 16:24:44 2023-04-17 16:24:44 Outpatient [facility] [id number] Olivier Negron 2023-02-28 08:14:18 2023-02-28 08:14:18 Outpatient [facility] [id number] Olivier Negron 2023-02-26 14:28:25 2023-02-26 14:28:25 Outpatient [facility] [id number] Olivier Negron 2023-02-08 00:00:00 2023-02-08 00:00:00 Telephone Charly Magallanes [facility] [address] 02.13.840.114 350.1.13.10 4.2.7.2.686 [id number] [facility] 2023-01-10 08:27:10 2023-01-10 08:27:10 Outpatient [facility] [id number] Olivier Negron 2023-01-08 16:21:50 2023-01-08 16:21:50 Outpatient [facility] [id number] Olivier Negron 2022-12-18 08:31:52 2022-12-18 08:31:52 Outpatient [facility] [id number] lOivier Negron 2022-10-13 09:12:36 2022-10-13 09:12:36 Outpatient [facility] [id number] Olivier Negron 2022-10-09 00:00:00 2022-10-09 00:00:00 Telephone [facility] 02.13.840.114 350.1.13.10 4.2.7.2.686 [id number] [facility] 2022-10-06 15:08:16 2022-10-06 15:08:16 Outpatient [facility] [id number] Olivier Negron 2022-10-05 14:00:00 2022-10-05 14:00:00 Outpatient R BLANCA WARE [facility] [id number] [facility] 2022-10-03 00:00:00 2022-10-03 00:00:00 Telephone Blanca Ware [facility] 1.2.840.114 350.1.13.10 4.2.7.2.686 [id number] [facility] 2022-10-03 00:00:00 2022-10-03 00:00:00 Patient Secure Msg Doctor Unassigned, [place] [facility] 1.2.840.114 350.1.13.10 4.2.7.2.686 [id number] [facility] 2022-09-13 00:00:00 2022-09-13 00:00:00 Orders Only Doctor Unassigned, [place] [facility] 1.2840.114 350.1.13.10 4.2.7.2.686 [id number] [facility] 2022-09-11 00:00:00 2022-09-11 00:00:00 Telephone Jeanette Ledesma [facility] 1.2840.114 350.1.13.10 4.2.7.2.686 [id number] [facility] 2022-09-11 00:00:00 2022-09-11 00:00:00 Patient Secure Msg Doctor Unassigned, [place] [facility] 1.2.840.114 350.1.13.10 4.2.7.2.686 [id number] [facility] 2022-09-05 00:00:00 2022-09-05 00:00:00 Patient Secure Msg Doctor Unassigned, [place] [facility] 1.2.840.114 350.1.13.10 4.2.7.2.686 [id number] [facility] 2022-09-01 00:00:00 2022-09-01 00:00:00 Telephone Blanca Ware [facility] 1.2.840.114 350.1.13.10 4.2.7.2.686 [id number] [facility] 2022-09-01 00:00:00 2022-09-01 00:00:00 Telephone Jeanie Blanca [facility] 1.2.840.114 350.1.13.10 4.2.7.2.686 [id number] [facility] 2022-08-31 15:30:00 2022-08-31 16:17:38 Outpatient R BLANCA WARE [facility] [id number] [facility] 2022-08-31 15:30:00 2022-08-31 16:17:38 Office Visit Jeanie Blanca [facility] 1.2.840.114 350.1.13.10 4.2.7.2.686 [id number] [facility] 2022-08-23 16:47:46 2022-08-23 16:47:46 Outpatient [facility] [id number] Olivier Negron 2022-08-21 08:30:00 2022-08-21 08:30:00 Outpatient R DEMETRIO LUTZ [facility] [id number] [facility] 2022-08-14 15:02:42 2022-08-14 15:02:42 Outpatient [facility] [id number] Olivier Negron 2022-08-04 00:00:00 2022-08-04 00:00:00 Telephone [facility]mita [facility] 1.2.840.114 350.1.13.10 4.2.7.2.686 [id number] [facility] 2022-08-01 09:00:00 2022-08-01 09:00:00 Outpatient R MICHEL CARBALLO [facility] [id number] [facility] 2022-07-25 12:20:03 2022-07-25 23:59:00 Outpatient R BRENDAN GARCIALATRICECHACHA [id number] [facility] 2022-07-25 12:20:03 2022-07-25 23:59:00 Hospital Encounter Brendan Garcia [facility] 1.2.840.114 350.1.13.10 4.2.7.2.686 [id number] [facility] 2022-07-20 13:20:13 2022-07-20 23:59:00 Hospital Encounter Charly Magallanes [facility] 1.2.840.114 350.1.13.10 4.2.7.2.686 [id number] [facility] 2022-07-20 13:00:00 2022-07-20 16:16:37 Outpatient R KASHMIRCHARLY HERNANDEZ [facility] [id number] [facility] 2022-07-20 13:00:00 2022-07-20 16:16:37 Office Visit Jose CjjCharly hernandez [facility] 1.2.840.114 350.1.13.10 4.2.7.2.686 [id number] [facility] 2022-07-18 09:45:00 2022-07-18 10:12:23 Outpatient R BRENDAN GARCIA CHERYAL [facility] [id number] [facility] 2022-07-18 09:45:00 2022-07-18 10:12:23 Office Visit Brendan Garcia [facility] 1.84.114 350.1.13.10 4.2.7.2.686 [id number] [facility] 2022-07-05 07:31:05 2022-07-05 07:31:05 Outpatient [facility] [id number] Olivier Negron 2022-07-04 13:39:04 2022-07-04 13:39:04 Outpatient [facility] [id number] Olivier Negron 2022-07-03 15:10:00 2022-07-03 15:10:00 Outpatient CHARLY AGUILA [facility] [id number] [facility] 2022-05-29 00:00:00 2022-05-29 00:00:00 Telephone [facility] 1.840.114 350.1.13.10 4.2.7.2.686 [id number] [facility] 2022-05-29 00:00:00 2022-05-29 00:00:00 Orders Only Doctor Unassigned, [place] [facility] 1.840.114 350.1.13.10 4.2.7.2.686 [id number] [facility] 2022-05-24 10:00:00 2022-05-24 10:00:00 Outpatient STEPHEN HOU [facility] [id number] [facility] 2022-05-23 00:00:00 2022-05-23 00:00:00 Telephone Michel Carballo [facility] 1..840.114 350.1.13.10 4.2.7.2.686 [id number] [facility] 2022-04-10 00:00:00 2022-04-10 00:00:00 OFFICE VISIT ESTAB PT LEVEL 4 STLMLC STLC [id number] [facility] 2022-01-31 10:00:00 2022-01-31 10:42:43 Outpatient R ANDREA EVETTEANDREINA [facility] [id number] [facility] 2022-01-31 10:00:00 2022-01-31 10:42:43 Office Visit [facility] SHANTAL?[facility] 1.2840.114 350.1.13.10 4.2.7.2.686 [id number] [facility] 2022-01-31 00:00:00 2022-01-31 00:00:00 Orders Only Doctor Unassigned, [place] [facility] 1.20.114 350.1.13.10 4.2.7.2.686 [id number] [facility] 2022-01-09 00:00:00 2022-01-09 00:00:00 Telephone Demetrio Lutz [facility] 1.2840.114 350.1.13.10 4.2.7.2.686 [id number] [facility] 2021-08-24 00:00:00 2021-08-24 00:00:00 Orders Only Doctor Unassigned, [place] [facility] 1.2840.114 350.1.13.10 4.2.7.2.686 [id number] [facility] 2021-08-19 00:00:00 2021-08-19 00:00:00 Telephone Miguel Angel Bear [facility] SHANTAL?[facility] 1.284.114 350.1.13.10 4.2.7.2.686 [id number] [facility] 2021-08-17 00:00:00 2021-08-17 00:00:00 Telephone [facility] SHANTAL?[facility] 1.2.840.114 350.1.13.10 4.2.7.2.686 [id number] [facility] 2021-08-08 00:00:00 2021-08-08 00:00:00 [facility] 1.2.840.114 350.1.13.10 4.2.7.2.686 [id number] [facility] 2021-08-04 00:00:00 2021-08-04 00:00:00 Patient Secure Msg [facility] 1.2.840.114 350.1.13.10 4.2.7.2.686 [id number] [facility] 2021-08-03 00:00:00 2021-08-03 00:00:00 [facility] 1.2.840.114 350.1.13.10 4.2.7.2.686 [id number] [facility] 2021-08-01 14:30:00 2021-08-01 15:49:05 Outpatient R CHEMA [facility] [id number] [facility] 2021-08-01 14:30:00 2021-08-01 15:49:05 Office Visit [facility] 1.2.840.114 350.1.13.10 4.2.7.2.686 [id number] [facility] 2021-08-01 14:30:00 2021-08-01 15:49:05 Outpatient R CHEMA [facility] [id number] [facility] 2021-08-01 00:00:00 2021-08-01 00:00:00 Telephone Chema [facility] SHANTAL?[facility] 1.2.840.114 350.1.13.10 4.2.7.2.686 [id number] [facility] 2021-08-01 00:00:00 2021-08-01 00:00:00 Telephone Chema [facility] SHANTAL?[facility] 1.2.840.114 350.1.13.10 4.2.7.2.686 [id number] [facility] 2021-06-03 15:33:12 2021-06-03 23:59:00 Outpatient R DEMETRIO LUTZ [facility] [id number] [facility] 2021-06-03 15:20:00 2021-06-03 23:59:00 Hospital Encounter Demetrio Lutz [facility] 1.2.840.114 350.1.13.10 4.2.7.2.686 [id number] [facility] 2021-06-03 00:00:00 2021-06-03 00:00:00 Outpatient R DEMETRIO LUTZ [facility] [id number] [facility] 2021-06-03 00:00:00 2021-06-03 00:00:00 Orders Only Doctor Unassigned, [place] [facility] [facility] 1.2.840.114 350.1.13.10 4.2.7.2.686 [id number] [facility] 2021-06-02 00:00:00 2021-06-02 00:00:00 (TEL) STLMLC STLMLC [id number] [facility] 2021-05-31 00:00:00 2021-05-31 00:00:00 OFFICE VISIT ESTAB PT LEVEL 4 STLMLC STLMLC [id number] [facility] 2021-05-23 10:00:00 2021-05-23 10:37:12 Outpatient R DEMETRIO LUTZ [facility] [id number] [facility] 2021-05-23 10:00:00 2021-05-23 10:37:12 [facility] 1.2.840.114 350.1.13.10 4.2.7.2.686 [id number] [facility] 2021-05-11 10:15:00 2021-05-11 10:30:00 Body Hanger Visit 2, Adc Lab Demetrio Lutz [facility] BUILDING 1.2.840.114 350.1.13.10 4.2.7.2.686 [id number] [facility] 2021-05-11 09:00:00 2021-05-11 10:04:44 Outpatient R DEMETRIO LUTZ [facility] [id number] [facility] 2021-05-11 09:00:00 2021-05-11 10:04:44 Office Visit Demetrio Lutz [facility] 1.2.840.114 350.1.13.10 4.2.7.2.686 [id number] [facility] 2021-05-11 09:00:00 2021-05-11 10:04:44 Outpatient R DEMETRIO LUTZ [facility] [id number] [facility] 2021-05-11 09:00:00 2021-05-11 10:04:44 Outpatient R NELDA [facility] [id number] [facility] 2021-04-27 00:00:00 2021-04-27 00:00:00 [facility] [id number] [facility] 2021-04-19 00:00:00 2021-04-19 00:00:00 OFFICE VISIT ESTAB PT LEVEL 4 STLC STLC [id number] [facility] 2021-04-18 10:00:00 2021-04-18 10:00:00 Outpatient R JEANETTE LEDESMA [facility] [id number] [facility] 2021-04-14 00:00:00 2021-04-14 00:00:00 (TEL) STLMLC STLMLC [id number] [facility] 2021-04-06 00:00:00 2021-04-06 00:00:00 (TEL) STLMLC STLMLC [id number] [facility] 2021-04-04 00:00:00 2021-04-04 00:00:00 OFFICE VISIT NEW PT LEVEL 4 STLMLC STLMLC [id number] [facility] 2021-03-30 00:00:00 2021-03-30 00:00:00 Outpatient R DEMETRIO LUTZ [facility] [id number] [facility] 2021-03-19 00:00:00 2021-03-19 00:00:00 Patient Secure Msg Doctor Unassigned, [place] [facility] [facility] 1.840.114 350.1.13.10 4.2.7.2.686 [id number] [facility] 2021-03-16 00:00:00 2021-03-16 00:00:00 Patient Secure Msg Doctor Unassigned, [place] [facility] [place] [facility] 1.2.840.114 350.1.13.10 4.2.7.2.686 [id number] [facility] 2021-03-14 13:00:00 2021-03-14 14:28:20 Outpatient R CHEMA MIGUEL ANGEL [facility] [id number] [facility] 2021-03-14 13:00:00 2021-03-14 14:28:20 [facility] 1..840.114 350.1.13.10 4.2.7.2.686 [id number] [facility] 2021-03-14 13:00:00 2021-03-14 13:00:00 Outpatient R MIGUEL ANGEL BEAR [facility] [id number] [facility] 2021-03-11 10:30:00 2021-03-11 11:30:52 Office Visit Demetrio Lutz [facility] 1.114 350.1.13.10 4.2.7.2.686 [id number] [facility] 2021-03-11 10:30:00 2021-03-11 11:30:52 Outpatient R DEMETRIO LUTZ [facility] [id number] [facility] 2021-03-11 10:30:00 2021-03-11 10:30:00 Outpatient R NELDA DEMETRIO [facility] [id number] [facility] 2021-03-11 00:00:00 2021-03-11 00:00:00 Orders Only Doctor Unassigned, [place] [facility] [place] [facility] 1.2.114 350.1.13.10 4.2.7.2.686 [id number] [facility] 2020-12-10 00:00:00 2020-12-10 00:00:00 Orders Only Doctor Unassigned, [place] [facility] 1.840.114 350.1.13.10 4.2.7.2.686 [id number] [facility] 2020-12-03 00:00:00 2020-12-03 00:00:00 Telephone Charly Magallanes [facility] [place] [facility] 1.284.114 350.1.13.10 4.2.7.2.686 [id number] [facility] 2020-11-26 00:00:00 2020-11-26 00:00:00 Telephone Charly Magallanes [facility] 1.2840.114 350.1.13.10 4.2.7.2.686 [id number] [facility] 2020-11-22 08:23:17 2020-11-22 23:59:00 Hospital Encounter Charly Magallanes [facility] [place] [facility] [id number] 350.1.13.10 4.2.7.2.686 [id number] [facility] 2020-11-22 08:23:16 2020-11-22 23:59:00 Outpatient R CHARLY MAGALLANES [facility] [id number] [facility] 2020-11-22 08:23:16 2020-11-22 23:59:00 Outpatient R CHARLY MAGALLANES [facility] [id number] [facility] 2020-11-22 08:23:16 2020-11-22 23:59:00 Outpatient R CHARLY MAGALLANES [facility] [id number] [facility] 2020-11-22 08:18:47 2020-11-22 08:54:39 Office Visit Charly [place] [facility] 1..840.114 [id number] [facility] 2020-11-22 00:00:00 2020-11-22 00:00:00 Letter (Out) Charly Magallanes [facility] [place] [facility] 1..840.114 [id number] [facility] 2020-10-20 13:30:00 2020-10-20 13:30:00 Outpatient R MICHEL CARBALLO [facility] [id number] [facility] 2020-10-04 14:10:00 2020-10-04 14:10:00 Outpatient R CHARLY MAGALLANES [facility] [id number] [facility] 2020-09-20 11:20:00 2020-09-20 11:20:00 Outpatient R SONA CHARLY [facility] [id number] [facility] 2020-09-13 11:20:00 2020-09-13 11:20:00 Outpatient R CHARLY MAGALLANES [facility] [id number] [facility] 2020-09-02 14:30:00 2020-09-02 14:30:00 Outpatient STEPHEN KAPLAN [facility] [id number] [facility] 2020-08-27 00:00:00 2020-08-27 00:00:00 Patient Secure Msg Doctor Unassigned, [place] [facility] [id number] [facility] 2020-08-10 00:00:00 2020-08-10 00:00:00 Outpatient STEPHEN KAPLAN [facility] [id number] [facility] 2020-08-05 00:00:00 2020-08-05 00:00:00 Outpatient STEPHEN KAPLAN [facility] [id number] [facility] 2020-07-30 00:00:00 2020-07-30 00:00:00 Outpatient STEPHEN KAPLAN [facility] [id number] [facility] 2020-07-29 00:00:00 2020-07-29 00:00:00 Outpatient STEPHEN KAPLAN [facility] [id number] [facility] 2020-07-23 00:00:00 2020-07-23 00:00:00 Outpatient STEPHEN KAPLAN [facility] [id number] [facility] 2020-07-22 11:30:00 2020-07-22 11:30:00 Outpatient STEPHEN KAPLAN [facility] [id number] [facility] 2020-07-08 09:30:00 2020-07-08 09:30:00 Outpatient STEPHEN KAPLAN [facility] [id number] [facility] 2020-07-01 09:30:00 2020-07-01 09:30:00 Outpatient STEPHEN KAPLAN [facility] [id number] [facility] 2020-03-15 13:30:00 2020-03-15 13:30:00 Outpatient Charmaine EASTRODRIGO [facility] [id number] [facility] 2020-03-11 13:45:00 2020-03-11 13:45:00 Outpatient Charmaine EASTRODRIOG [facility] [id number] [facility] 2019-03-20 00:00:00 2019-03-20 00:00:00 Telephone Claudette Mulligan [facility] [id number] 2019-01-13 00:00:00 2019-01-13 23:59:00 Outpatient CLAUDETTE CLAUDIO [facility] [id number] [facility] 2018-03-08 09:47:00 2018-03-08 09:47:00 Outpatient [facility] [id number] [facility] 2017-11-29 16:00:00 2017-11-29 16:00:00 Outpatient [facility] [id number] [facility] 2017-08-30 14:45:00 2017-08-30 14:45:00 [facility] [id number] [facility] Results Test Description Test Time Test Comments Results Result Co mments Source [facility] w/o Specific [id number] 13:28:00* Test Item Value Reference Range Interpretation Comme nts POCT PH U (test code = 3254) 6 mg/dl 5-8 POCT U LEUK EST (test code = 3263) 2+ Negative - Negative POCT U NIT (test code = 3262) negative Negative - Negati ve POCT U PROT (test code = 3259) 100 Negative - Negat luis POCT U GLU (test code = 3256) 100 Negative - Negati ve POCT U KETONE (test code = 3258) 2+ Negative - Neg ative POCT U BLD (test code = 3257) trace Negative - Negati ve [facility] Urinalysis w/o Specific [id number] 13:28:00* Test Item Value Reference Range Interpretation Comme nts POCT PH U (test code = 3254) 6 mg/dl 5-8 POCT U LEUK EST (test code = 3263) 2+ Negative - Negative POCT U NIT (test code = 3262) negative Negative - Negati ve POCT U PROT (test code = 3259) 100 Negative - Negat luis POCT U GLU (test code = 3256) 100 Negative - Negati ve POCT U KETONE (test code = 3258) 2+ Negative - Neg ative POCT U BLD (test code = 3257) trace Negative - Negati ve [facility] GLUCOSE (AUTOMATED)2023-06-27 13:49:12* Test Item Value Reference Range Interpretation Comme nts POCT GLU (test code = 5718117813) 83 mg/dL 70-110 Lab Interpretation (test cod e = 30998-3) Normal [facility] GLUCOSE (AUTOMATED)2023-06-27 13:49:12* Test Item Value Reference Range Interpretation Comme nts POCT GLU (test code = 7452879429) 83 mg/dL 70-110 Lab Interpretation (test cod e = 71087-4) Normal [facility] [id number] 13:45:00* Test Item Value Reference Range Interpretation Comme nts POCT PREG (test code = 1605) Negative On board controls acceptable with C Line (test code = 3574) Yes POCT PREG LOT # (test code = 3575) [id number] POCT PREG TEST DATE ( test code = 3576) 2024-03-21 [facility] [id number] 13:45:00* Test Item Value Reference Range Interpretation Comme nts POCT PREG (test code = 1605) Negative On board controls acceptable with C Line (test code = 3574) Yes POCT PREG LOT # (test code = 3575) [id number] POCT PREG TEST DATE ( test code = 3576) 2024-03-21 [facility] HEMOGLOBIN A1C [id number] 16:11:00* Test Item Value Reference Range Interpretation Comme [facility] POCT HBA1C (test code = 4548-4) 6.6 % 4-6 A Lab Interpretation (test cod e = 21459-5) Abnormal [facility] HEMOGLOBIN A1C [id number] 16:11:00* Test Item Value Reference Range Interpretation Comme [facility] POCT HBA1C (test code = 4548-4) 6.6 % 4-6 A Lab Interpretation (test cod e = 25113-2) Abnormal [facility] Spine Ap/LatC Spine Ap/Lat History and Physical Notes Date/Time Note Provider Source 2023-06-27 08:40:39 Patient seen and examined on 06/27/2023. There have been no changes to the interval H&P since 05/31/23. Plan for endoscopy today for screening colonoscopy in patient of average risk. All risks benefits and alternatives discussed with patient, including the risk of bleeding, infection, damage to surrounding tissues, need for more invasive measures to address these complications, and they are amenable to proceed with procedure. All questions were answered. Consent form is signed and in the chart. Blanca Ware MD 06/27/2023 8:41 AM Colon and Rectal Surgery Source Note - Blanca Ware MD - 05/31/2023 8:30 AM CDT [facility] NOTE CC: constipation, colon cancer screening HISTORY OF PRESENT ILLNESS: Shasta Haro is a 48 year old year old female patient with a medical history of diabetes, on metformin, that comes for colon cancer screening. 05/31/2023: No changes in health, constipation has improved. 2-3 x per week BM, has increased fiber in diet. No alarm symptoms. 08/2022: Patient refers constipation, she has bowel movements once or twice per week, poor fiber intake. Takes laxatives once a week. She denies rectal bleeding, changes in the stool, weight loss, family history of colon cancer. REVIEW OF SYSTEMS: Constitutional: negative per HPI Neuro: negative per HPI HEENT: negative per HPI CV: negative per HPI Resp: negative per HPI GI: constipation : negative per HPI MSK: negative per HPI Skin: negative per HPI Endo: negative per HPI PAST MEDICAL HISTORY: Past Medical History: Diagnosis Date Abnormal uterine bleeding 03/11/2021 Anemia Breast disorder 2016 Right breast cyst Diabetes mellitus 2004 pt on metformin, seen by [facility] Heart murmur 2009 Hypertension 2013 on meds, managed by [facility], [place] Pap smear abnormality of cervix 1999 MEDICATIONS: Current Outpatient Medications Medication Instructions cetirizine (ZYRTEC) 10 mg, Oral, QAM lisinopriL (PRINIVIL,ZESTRIL) 30 mg, Oral, QAM Mounjaro 10 mg, Subcutaneous, QWEEKLY ONETOUCH DELICA PLUS LANCET 33 gauge Misc No dose, route, or frequency recorded. ONETOUCH ULTRA TEST strip No dose, route, or frequency recorded. ONETOUCH ULTRA2 METER Misc USE TO TEST BLOOD SUGAR TWICE DAILY rosuvastatin (CRESTOR) 10 mg, Oral, QAM ALLERGIES: No Known Allergies PAST SURGICAL HISTORY: Past Surgical History: Procedure Laterality Date BREAST SURGERY 2015 right breast cyst removal DILATION AND CURETTAGE (SHX) SOCIAL HISTORY: Social History Tobacco Use Smoking status: Former Packs/day: .5 Types: Cigarettes Quit date: 2014 Years since quittin.2 Smokeless tobacco: Never Substance Use Topics Alcohol use: Yes Alcohol/week: 1.0 standard drink of alcohol Types: 1 Glasses of wine per week FAMILY HISTORY: Family Status Relation Name Status Mo Alive Fa Alive MGMo Lung cancer Sis Alive Physical Exam: BP (!) 147/72 | Pulse 71 | Temp 36.1 ?C (97 ?F) | Resp 18 | Ht 1.676 m (5' 6") | Wt 97.5 kg (215 lb) | SpO2 100% | BMI 34.70 kg/m? General: awake, alert, appears stated age, NAD HEENT: normocephalic, atraumatic Cardio: regular rate Lungs: unlabored on RA Abdomen: soft, nondistended, nontender without rebound/guarding Extremities: full ROM, no gross movement abnormalities, no edema Skin: no rashes Neuro: sensory and motor grossly intact Assessment/Plan Shasta Haro is a 48 year old female that comes for colon cancer screening and constipation. She denies any alarm symptoms. No family history of colon CA. Plan: Counseled regarding daily fiber/miralax given she is on Mounjaro to prevent worsening constipation Anal pap at same time given h/o abnormal cervical pap Due to constipation, she would benefit from 2 days bowel prep + clear liquid diet. She will get Golytely two day prep I spent 25 minutes of time, independent of resident or medical student time spent during the entirety of this appointment, dedicated to: PreCharting (eg, review of tests, notes, etc.), Counseling and educating the patient/family/caregiver, Ordering medications, tests, or procedures, and Documenting clinical information in the electronic or other health record. Blanca Ware MD 05/31/2023 4:14 PM Colon and Rectal Surgery T [facility] [employer] Notes Date/Time Note Provider Source 2023-09-28 09:00:00 Images from the original note were not included. Pt gave urine during appointment. Venipuncture collection performed by clean technique on the left anticubitus. Total of 1 attempts were made. Slight pressure and a bandage/dressing were applied to the site(s). The patient experienced no complications. The following specimens were processed according to instructions and sent to [facility] laboratories per lab order on 09/28/2023: LT BLUE SST 2 RED 1 LAV PPT DK GREEN (LiHep) DK GREEN (SodH) ANGULO DK BLUE (K2) DK BLUE (S) ACD Blood Culture NIPT/NTD [facility] [employer] 2023-06-19 11:42:03 Images from the original note were not included. Your upcoming procedure is at [facility] on 06/27/23. The address is [address] [place] [address], [facility], [address].The nursing staff at [facility] will call you the workday before your procedure to let you know what time to arrive. When you arrive, please go inside and sign in at the desk. Please note: You may not travel home alone after your procedure and that includes in a taxi or by bus. We must speak to your Responsible Adult (who will be picking you up) the morning of your procedure, before the start of your procedure. This person must be an adult over the age of 18 years of age. Maintain a clear liquid diet the entire day before your procedure. Do not drink anything containing red, blue, or purple dyes. Follow the instructions of your bowel prep as directed by you physician. You may also take your medications the morning of your procedure with a sip of water as directed by physician. Anticoagulants will be per physician Guidance. Medication Note(s)/Instructions: Instructed to hold lisinopril day before and morning of procedure and hold Mounjaro dose due on 06/22/23. Both patient and person accompanying and/or picking patient up must be able to wear a mask and be without symptoms of COVID 19. Pending screening, a COVID test may be required. If a patient tests positive, their cases are cancelled and/or rescheduled. COVID NOTE: Denies COVID symptoms or exposure, no testing required. Additional questions, concerns, requests:CB number provided. Patient verbalized understanding of pre-op instructions and voiced no further questions at this time. [facility] [employer] 2023-05-31 08:30:00 Addended by: ELIANA JAMA RN on: 05/31/2023 09:28 AM Modules accepted: Orders [facility] [employer] 2023-05-21 07:38:25 Shasta aHro is a 48 year old female that is ready to schedule her procedure. Please contact to assist. Berenice Rocha [facility] 2023-02-08 16:07:46 Orthopedic Nurse Documentation Orthopedic Faculty:Charly Magallanes MD Date of Surgery (if applicable):No surgery found Surgical Procedure (if applicable): No surgery found Follow up date: none Documentation ROCCO 07/20/22 Plan: I have discussed the patient's physical exam and reviewed their x-rays and imaging with them in detail. All questions have been answered. We have talked about all the treatment options and have agreed upon: -WBAT LLE -Pain: none -Orthotics: diabetic shoes -Heat therapy -Compression stockings -Vitamin C, D, and Calcium supplementation - Follow-up prn if need to discuss further intervention Per chart, patient is follow up as needed. Due to this, our office will be unable to complete impairment/disability forms for patient. Notified patient. ULATING BATH OPERATOR Ida Donis RN [facility] 2023-02-08 12:16:02 Incoming Call Provider: Charly Magallanes MD Date of Surgery (if applicable):No surgery found Surgical Procedure (if applicable): No surgery found Last Office Visit Date: 07/20/2022 Follow up Date: none Documentation Pt calling asking for Authorzed medical professional certification Form filled out by For Physical or mental impairment status. Pt will upload to my chart. She does not live near. And email back to [email or web address] Preferred Pharmacy: [id number] - [place], [place] - [address] Insurance: Payor: [facility] - MANAGED MEDICARE / Plan: [facility] DUAL COMP HMO D SNP / Product Type: Medicare Adv HMO / Recent/Future Schedule Appointments at the time of this encounter Recent Visits Date Type Provider Dept 07/20/22 Office Visit Charly Magallanes MD Ortho Faculty-Pcp Showing recent visits within past 365 days and meeting all other requirements Future Appointments No visits were found meeting these conditions. 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 Email sent to [facility] scheduling at this time. Eliana Jama RN [facility] 2022-10-09 09:54:25 Formatting of this n ote might be different from the original. Pt is needing to cancel her appt on Sunday and she will call back to reschedule at a later date. Sola Waldrop [facility] 2022-10-04 13:54:56 Formatting of this n ote might be different from the original. Spoke with patient and clarified bowel prep instructions. Patient verbalized understanding and denies any other questions concerns. Eliana Jama RN [facility] 2022-10-04 08:03:07 Formatting of this n ote might be different from the original. Images from the original note were not included. Spoke with patient, states instructions received for colonoscopy prep is 2 day clear liquid and to start Miralax and Gatorade the day before colonoscopy. States she thought she was supposed to start Miralax 2 days prior to colon. Will route to provider for clarification. Instructions per [employer] message. Miralax and Gatorade Bowel Prep Instructions To prepare for the examination, you will need to completely clean out your bowels. Please follow the instructions carefully. You must have a responsible adult bring you, stay and drive you home the day of the procedure. You will NOT be allowed to travel home alone or in a Taxi, Bus or Uber. You will need to buy: -Two 32oz. bottles of Gatorade (ANY FLAVOR EXCEPT RED, BLUE OR PURPLE) *If diabetic use Sugar-Free -One 8.3 oz bottle of Miralax (238g) - Can be purchased over the counter -Dulcolax 5mg tablets (You will need 4)-Can be purchased over the counter Medications: You may need to change your medication routine if you take medications such as fish oil, diabetes medication, anti-inflammatory medications, or blood thinners. You may take Tylenol. If you take any of the following blood thinners you need to inform your provider and may require clearance from your surgeon partner or PCP: Plavix, Coumadin, Effient, Eliquis, Xarelto, Brilinta or Pradaxa One week before the exam: Do not take Iron supplements. Do not eat nuts, corn or popcorn. Two days before the exam: 10/09/2022 NO SOLID FOOD, MILK OR CREAM PRODUCTS Drink only clear liquids all day (breakfast, lunch, and dinner). Clear liquids include chicken/beef broth, jello, pulp-less fruit Juice, black coffee (no creamer), tea, soft drinks, dianna jose francisco, Gatorade, PowerAde, and popsicles. * NOTHING RED, BLUE OR PURPLE* The day before the exam: 10/10/2022 NO SOLID FOOD, MILK OR CREAM PRODUCTS Drink only clear liquids all day (breakfast, lunch, and dinner). Clear liquids include chicken/beef broth, jello, pulp-less fruit Juice, black coffee (no creamer), tea, soft drinks, dianna jose francisco, Gatorade, PowerAde, and popsicles. * NOTHING RED, BLUE OR PURPLE* At 4:00 PM: in a large container mix the entire 238 grams of Miralax with the 64 oz (2 bottles) of Gatorade. Stir the contents until completely dissolved. Do not add ice, sugar or other flavorings to the solution At 5:00 PM: take two (2) Dulcolax tablets At 5:00 PM: start drinking the first half of the Gatorade/Miralax solution. Drink one 8-oz glass every 15 minutes (a total of 4 glasses will be consumed) At 8:00 PM: take two (2) Dulcolax tablets Continue to drink clear liquids until midnight, then nothing to eat/drink after midnight except for medications Day of exam: 10/11/2022 At 4:00 AM: drink the remaining half of the Gatorade/Miralax solution. Drink one 8-oz glass every 15 minutes (a total of 4 glasses will be consumed) Do not eat or drink anything the rest of the morning (if you are scheduled later afternoon you can remain on clear liquids until 2 hours prior to arrival time for procedure). You may take your medications with a small sip of water. NO CHEWING GUM OR HARD CANDY Drink plenty of water after completing the prep This [facility] [employer] message has not been read. Eliana Jama RN [facility] 2022-10-03 11:54:57 Formatting of this n ote might be different from the original. Patient is requesting a call back from clinical staff to go over pre op instructions. Katelyn Bass [facility] 2022-09-11 17:12:31 Addended by: SNEHA FU RN on: 09/11/2022 05:12 PM Modules accepted: Orders LINAT Sneha Molina RN [facility] 2022-09-11 17:01:49 Addended by: SNEHA FU RN on: 09/11/2022 05:01 PM Modules accepted: Orders Sneha Molina RN [facility] 2022-09-11 16:34:59 Formatting of this n ote might be different from the original. Patient returned call to office requesting to reschedule to 8/30/23. Patient also wants Miralax called in to pharmacy to see if her insurance will cover. Email submitted, new instructions with correct date sent to patient in [email or web address]. [facility] 2022-09-11 16:08:00 Formatting of this n ote might be different from the original. Attempted to contact patient with no answer, Voicemail left at this time with clinic phone number and instructed patient to return call. Eliana Jama RN [facility] 2022-09-11 15:38:55 Formatting of this n ote might be different from the original. Images from the original note were not included. Eliana Jama RN [facility] 2022-09-05 17:34:40 Formatting of this n ote might be different from the original. Clarified dose for pharmacy. Sneha Molina RN [facility] 2022-09-01 15:45:06 Formatting of this n ote might be different from the original. Shasta Haro is a 47 year old female Pharm calling to clarify dosage for miralx States they have 1 bottle in stock Please advise [id number] - [place] [address] [address] [facility] [address] [employer] Stanford Montano PCT [facility] 2022-09-01 14:14:31 Formatting of this n ote might be different from the original. Spoke with patient and colonoscopy to be scheduled 09/20/22. Miralax bowel prep sent to pharmacy per request. Eliana Jama RN [facility] 2022-09-01 12:43:22 Formatting of this n ote might be different from the original. Pt requesting for colonoscopy to be scheduled for September 22 and would like to know if prep medication is going to be prescribed. Please assist Alberta Benjamin [facility] 2022-08-31 15:30:00 Addended by: JULIA COOK MA on: 09/01/2022 01:56 PM Modules accepted: Orders Julia Cook MA [facility]
[2023-11-27 11:37] LABS: SARS-CoV-2 Antigen CONTROL BLUE LINE VIS/BG OK; SARS-CoV-2 Antigen Rapid Res Negative (Negative)
[2023-11-27] MEDS ORDERED: KETOROLAC 30 MG/ML INJ ONE (11:54)
[2023-11-27] MEDS ORDERED: ACETAMINOPHEN 500 MG TAB ONE (11:54)
[2023-11-27] MEDS ORDERED: METOCLOPRAMIDE 5 MG TAB ONE (11:54)
[2023-11-27] MEDS ORDERED: predniSONE 20 MG TAB ONE (11:54)
--- NOTE | 2023-11-27 12:02 | ER ---
Nurse's Notes [facility] Name: Shasta Mccracken Age: 48 yrs Sex: Female : 1975 Arrival Date: 11/27/2023 Time: 10:53 Bed DX1 Private MD: Diagnosis: Influenza Presentation: 11/26 11:16 Chief complaint: Patient states: she has been having chills, going from hot to cold ap3 since yesterday. patient also reports being fatigued and just wanting to sleep. patient denies any nausea or vomiting. patient reports headache. Coronavirus screen: At this time, the client does not indicate any symptoms associated with coronavirus-19. Ebola Screen: No symptoms or risks identified at this time. Initial Sepsis Screen: Does the patient meet any 2 criteria? No. Patient's initial sepsis screen is negative. Does the patient have a suspected source of infection? No. Patient's initial sepsis screen is negative. Risk Assessment: Do you want to hurt yourself or someone else? Patient reports no desire to harm self or others. Onset of symptoms was November 26, 2023. 11:16 Method Of Arrival: Ambulatory ap3 11:16 Acuity: HAYDE 3 ap3 Triage Assessment: 11:18 General: Appears in no apparent distress. Behavior is calm, cooperative, appropriate ap3 for age, Reports chills for fever for feeling ill for fatigue for. Pain: Complains of pain in head. Neuro: Level of Consciousness is awake, alert, obeys commands, Oriented to person, place, time, situation, Appropriate for age. Neuro: Reports headache weakness. Cardiovascular: Patient's skin is warm and dry. Respiratory: Airway is patent Respiratory effort is even, unlabored, Respiratory pattern is regular, symmetrical. 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 Flu vaccine is not up to date. - Infectious Disease History:: Denies. - Social history:: Smoking status: Patient reports the use of cigarette tobacco products, denies chronic smoking, but will smoke occasionally, Patient uses alcohol, occasionally. Screenin:19 [facility] ED Fall Risk Assessment (Adult) History of falling in the last 3 months, ap3 including since admission No falls in past 3 months (0 pts) Confusion or Disorientation No (0 pts) Intoxicated or Sedated No (0 pts) Impaired Gait No (0 pts) Mobility Assist Device Used No (0 pt) Altered Elimination No (0 pt) Score/Fall Risk Level 0 - 2 = Low Risk Oriented to surroundings, Maintained a safe environment, Educated pt \T\ family on fall prevention, incl call for assistance when getting out of bed, Assessed \T\ reinforced patient's understanding of fall precautions, Hourly rounding (assess needs \T\ fall precautionary measures) done, Used ambulatory aids as needed (educated on \T\ assisted with), Used gait belt as appropriate. Abuse screen: Denies threats or abuse. Nutritional screening: No deficits noted. Tuberculosis screening: No symptoms or risk factors identified. Assessment: 12:24 Reassessment: Patient and/or family updated on plan of care and expected duration. Pain ap3 level reassessed. Patient is alert, oriented x 3, equal unlabored respirations, skin warm/dry/pink. General: Appears in no apparent distress. ill, Behavior is calm, cooperative, appropriate for age. Pain: Complains of pain in head. Vital Signs: 11:16 BP 167 / 85; Pulse 83; Resp 17; Temp 98.1; Pulse Ox 100% ; Weight 83.91 kg; Height 5 ap3 ft. 6 in. ; Pain 0/10; 11:16 Body Mass Index 29.86 (83.91 kg, 167.64 cm) ap3 11:16 Pain Scale: Adult ap3 ED Course: 10:56 Patient arrived in ED. im 11:00 Juan Hayes MD is Attending Physician. ec2 11:18 Triage completed. ap3 11:19 Arm band placed on right wrist. ap3 11:22 COVID swab sent to lab. Flu and/or RSV swab sent to lab. ap3 11:22 Influenza Screen (a \T\ B) Sent. ap3 11:22 SARS RAPID Sent. ap3 12:14 CXR XRAY In Process Unspecified. EDMS 12:24 No provider procedures requiring assistance completed. Patient did not have IV access ap3 during this emergency room visit. 12:25 Patient has correct armband on for positive identification. Provided Education on: ap3 discharge instructions. Administered Medications: 12:02 Drug: predniSONE PO 40 mg PO once Route: PO; ap3 12:23 Follow up: Response: No adverse reaction ap3 12:02 Drug: Acetaminophen PO 1000 mg PO once Route: PO; ap3 12:23 Follow up: Response: No adverse reaction ap3 12:03 Drug: MetoCLOPramide PO 10 mg PO once Route: PO; ap3 12:24 Follow up: Response: No adverse reaction ap3 12:03 Drug: Ketorolac IM 30 mg IM once Route: IM; Site: left deltoid; ap3 12:23 Follow up: Response: No adverse reaction; Pain is decreased ap3 Medication: 12:25 VIS not applicable for this client. ap3 Outcome: 12:01 Discharge ordered by . ec2 12:24 Discharged to home ambulatory, ap3 12:24 Condition: good 12:24 Discharge instructions given to patient, Instructed on discharge instructions, follow up and referral plans. medication usage, Demonstrated understanding of instructions, follow-up care, medications, Prescriptions given X 1, 12:25 Patient left the ED. ap3 Signatures: Dispatcher [employer] Ev Johnson RN RN ap3 Yris Garcia Edwin, MD MD ec2
--- NOTE | 2023-11-27 12:02 | EDPHYS ---
Physician Documentation [facility] Name: Shasta Mccracken Age: 48 yrs Sex: Female : 1975 Arrival Date: 11/27/2023 Time: 10:53 Bed DX1 Private MD: ED Physician Juan Hayes HPI: 11/26 11:54 This 48 yrs old Female presents to ER via Ambulatory with complaints of Flu ec2 Symptoms. 11:54 Patient arrives today for 2 days of URI signs and symptoms. Reports that she has been ec2 feeling unwell. Patient reports decreased p.o. intake, headache.. 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 Flu vaccine is not up to date. - Infectious Disease History:: Denies. - Social history:: Smoking status: Patient reports the use of cigarette tobacco products, denies chronic smoking, but will smoke occasionally, Patient uses alcohol, occasionally. ROS: 11:54 Constitutional: as per hpi ec2 Exam: 11:54 Constitutional: GEN: NAD Head: atraumatic Eyes: EOMI Ears: External ears are ec2 normal. CV: regular rate LUNGS: no respiratory distress, no wheezes, no rales, no rhonchi ABD: non-distended SKIN: no evidence of rashes MSK: no evidence of trauma Vital Signs: 11:16 BP 167 / 85; Pulse 83; Resp 17; Temp 98.1; Pulse Ox 100% ; Weight 83.91 kg; Height 5 ap3 ft. 6 in. ; Pain 0/10; 11:16 Body Mass Index 29.86 (83.91 kg, 167.64 cm) ap3 11:16 Pain Scale: Adult ap3 MDM: 11:01 Medical Screening Exam initiated ec2 11:54 Data reviewed: vital signs. ED course: Patient arrives today for URI signs symptoms. ec2 Examination remarkable for well-appearing hemodynamically stable with reassuring cardiopulmonary examination. Viral swabs and chest x-ray obtained, patient is positive for influenza. Will treat for viral symptoms. Will discharge to home. Return precautions given.. 12:23 ED course: Chest x-ray independently reviewed and interpreted by me, shows no acute ec2 intrathoracic process.. 11/26 11:01 Order name: SARS RAPID; Complete Time: 11:54 ec2 11/26 11:01 Order name: Influenza Screen (a \T\ B); Complete Time: 11:54 ec2 11/26 11:01 Order name: CXR XRAY; Complete Time: 12:23 ec2 Administered Medications: 12:02 Drug: predniSONE PO 40 mg PO once Route: PO; ap3 12:23 Follow up: Response: No adverse reaction ap3 12:02 Drug: Acetaminophen PO 1000 mg PO once Route: PO; ap3 12:23 Follow up: Response: No adverse reaction ap3 12:03 Drug: MetoCLOPramide PO 10 mg PO once Route: PO; ap3 12:24 Follow up: Response: No adverse reaction ap3 12:03 Drug: Ketorolac IM 30 mg IM once Route: IM; Site: left deltoid; ap3 12:23 Follow up: Response: No adverse reaction; Pain is decreased ap3 Disposition Summary: 11/27/23 12:01 Discharge Ordered Notes: Location: Home ec2 Condition: Stable ec2 Diagnosis - Influenza ec2 Followup: ec2 - With: Private Physician - When: - Reason: Re-evaluation by your physician Discharge Instructions: - Discharge Summary Sheet ec2 - Influenza, Adult, [id number] ec2 Forms: - Work release form ec2 - Medication Reconciliation Form ec2 - Antibiotic Education ec2 - Prescription Opioid Use ec2 - Patient Portal Instructions ec2 - Leadership Thank You Letter ec2 Prescriptions: - Compazine 10 mg Oral Tablet - take 1 tablet ORAL route every 8 hours As needed; 20 tablet; Refills: 0, ec2 Product Selection Permitted Signatures: Dispatcher [employer] Ev Johnson RN RN ap3 Juan Hayes MD MD ec2 Corrections: (The following items were deleted from the chart) 11: 11:01 SARS-COV-2 Antigen Rapid+I.LAB.BRZ ordered. EDMS EDMS 11: 11:01 Influenza Screen (A \T\ B)+BA.LAB.BRZ ordered. EDMS EDMS
--- NOTE | 2023-11-27 12:23 | RAD REPORT ---
Procedure: Chest Single View HISTORY: Cough COMPARISON: 2020 FINDINGS: The lungs appear clear of acute infiltrate. No significant pleural effusion noted. The heart is normal size. IMPRESSION: No acute abnormality is displayed.
[2023-11-27 13:54] VITALS: BP 167/85; TEMP 98.1; O2SAT 100
== END 2023-11-27 12:25 | disposition home or self-care (01) ==
LOC: ER 10:53
DX: J11.1 Influenza due to unidentified influenza virus with other respiratory manifestations (principal); Z11.52 Encounter for screening for COVID-19; Z72.0 Tobacco use; Z28.310 Unvaccinated for COVID-19
CPT/HCPCS: 36415; 87804 ×2; 71045; 87811; J7512; 96372; 99284